=== PATIENT | male | born 1950 | race Caucasian/White ===

== ENCOUNTER 2019-06-13 06:04 | Emergency (ER) | payer OTHER ==
--- NOTE | 2019-06-13 06:21 | ER ---
Nurse's Notes [facility] Name: Taj Perez Age: 69 yrs Sex: Male : 1950 Arrival Date: 06/13/2019 Time: 06:05 Bed 4 Private MD: Diagnosis: Traumatic secondary and recurrent hemorrhage and seroma Presentation: 06/13 06:12 Presenting complaint: Patient states: Total knee replacement on Tuesday, this morning ch woke up with a bloody gauze and is concerned about that. Transition of care: patient was not received from another setting of care. Onset of symptoms was June 13, 2019 at 05:30. Risk Assessment: Do you want to hurt yourself or someone else? Patient reports no desire to harm self or others. Initial Sepsis Screen: Does the patient meet any 2 criteria? No. Patient's initial sepsis screen is negative. Does the patient have a suspected source of infection? No. Patient's initial sepsis screen is negative. Care prior to arrival: None. 06:12 Method Of Arrival: Wheelchair 06:12 Acuity: TRISH 5 ch Historical: - Allergies: 06:15 Risperdal; 06:15 Oxycodone HCl; 06:15 Ibuprofen; 06:15 "two other pysciatric or antibiotics, unknown"; - Home Meds: 06:15 unknown [Active]; 06:16 Plavix 75 mg Oral tab 1 tab once daily [Active]; Aspirin Oral [Active]; - PMHx: 06:15 Kidney stones; psychiatric; spinal fusion; 06:16 Myocardial infarction; - PSHx: 06:15 lower back; R knee replacement, 05/2019; Lithotripsy; Kidney stents; 06:16 cardiac stents; - Immunization history:: Adult Immunizations up to date, Last tetanus immunization: up to date Pneumococcal vaccine is up to date, Flu vaccine is up to date. - Social history:: Smoking status: Patient/guardian denies using tobacco, Patient/guardian denies using alcohol, street drugs. - Ebola Screening: : Patient negative for fever greater than or equal to 101.5 degrees Fahrenheit, and additional compatible Ebola Virus Disease symptoms Patient denies exposure to infectious person Patient denies travel to an Ebola-affected area in the 21 days before illness onset No symptoms or risks identified at this time. Screenin:17 Abuse screen: Denies threats or abuse. Denies injuries from another. Nutritional ch screening: No deficits noted. Tuberculosis screening: No symptoms or risk factors identified. Fall Risk None identified. Assessment: 06:17 General: Appears in no apparent distress. uncomfortable, Behavior is calm, cooperative, jb4 appropriate for age. Pain: Complains of pain in right quadriceps and right knee Pain does not radiate. Pain currently is 8 out of 10 on a pain scale. Neuro: Level of Consciousness is awake, alert, obeys commands, Oriented to person, place, time, situation. Cardiovascular: Patient's skin is warm and dry. Respiratory: Airway is patent Respiratory effort is even, unlabored, Respiratory pattern is regular, symmetrical. GI: No deficits noted. No signs and/or symptoms were reported involving the gastrointestinal system. : No deficits noted. No signs and/or symptoms were reported regarding the genitourinary system. EENT: No deficits noted. No signs and/or symptoms were reported regarding the EENT system. Derm: Skin is intact, Skin is pink, warm \\T\\ dry. Surgical site noted to the right knee. Well approximated, small amount of bleeding noted. Musculoskeletal: Circulation, motion, and sensation intact. Range of motion: intact in all extremities. Vital Signs: 06:16 BP 132 / 78; Pulse 72; Resp 16; Temp 98.6; Pulse Ox 99% on R/A; Pain 8/10; ch ED Course: 06:05 Patient arrived in ED. ds1 06:13 Triage completed. ch 06:13 Severino Bull [facility]. jr8 06:13 Berhane Gonzalez MD is Attending Physician. jr8 06:16 Anderson Romero, ELBERT is Primary Nurse. jb4 06:16 Arm band placed on left wrist. Patient placed in an exam room, on a stretcher, on pulse ch oximetry. 06:17 Patient has correct armband on for positive identification. Bed in low position. Call light in reach. Side rails up X 1. Adult w/ patient. Pulse ox on. NIBP on. 06:38 No provider procedures requiring assistance completed. Patient did not have IV access ch during this emergency room visit. 06:38 No provider procedures requiring assistance completed. Patient did not have IV access jb4 during this emergency room visit. Dressings: ABD pad X 2; right knee. Administered Medications: No medications were administered Outcome: 06:21 Discharge ordered by MD. sahni 06:37 Discharged to home via wheelchair, with family. 06:37 Condition: stable 06:37 Discharge instructions given to patient, family, Instructed on discharge instructions, follow up and referral plans. wound care, Demonstrated understanding of instructions, follow-up care, wound care. 06:38 Patient left the ED. jb4 Signatures: Grace Buenrostro, RN RN Anita Osman1 Severino Bull PA PA jr8 Anderson Romero RN RN jb4
--- NOTE | 2019-06-13 06:22 | EDPHYS ---
Physician Documentation [facility] Name: Taj Perez Age: 69 yrs Sex: Male : 1950 Arrival Date: 06/13/2019 Time: 06:05 Bed 4 Private MD: ED Physician Berhane Gonzalez HPI: 06/13 06:16 This 69 yrs old Male presents to ER via Wheelchair with complaints of Post jr8 Surgical Bleeding. 06:16 Onset: The symptoms/episode began/occurred this morning. Pt had right total knee done jr8 on Tuesday at the [facility], woke up this morning and noticed blood drainage to the dressing this morning, denies acute change in pain, denies fevers. . Historical: - Allergies: 06:15 Risperdal; ch 06:15 Oxycodone HCl; ch 06:15 Ibuprofen; ch 06:15 "two other pysciatric or antibiotics, unknown"; ch - Home Meds: 06:15 unknown [Active]; ch 06:16 Plavix 75 mg Oral tab 1 tab once daily [Active]; Aspirin Oral [Active]; ch - PMHx: 06:15 Kidney stones; psychiatric; spinal fusion; ch 06:16 Myocardial infarction; ch - PSHx: 06:15 lower back; R knee replacement, 05/2019; Lithotripsy; Kidney stents; ch 06:16 cardiac stents; ch - Immunization history:: Adult Immunizations up to date, Last tetanus immunization: up to date Pneumococcal vaccine is up to date, Flu vaccine is up to date. - Social history:: Smoking status: Patient/guardian denies using tobacco, Patient/guardian denies using alcohol, street drugs. - Ebola Screening: : Patient negative for fever greater than or equal to 101.5 degrees Fahrenheit, and additional compatible Ebola Virus Disease symptoms Patient denies exposure to infectious person Patient denies travel to an Ebola-affected area in the 21 days before illness onset No symptoms or risks identified at this time. ROS: 06:16 Constitutional: Negative for fever, chills, and weight loss, Eyes: Negative for injury, jr8 pain, redness, and discharge, ENT: Negative for injury, pain, and discharge, Neck: Negative for injury, pain, and swelling, Cardiovascular: Negative for chest pain, palpitations, and edema, Respiratory: Negative for shortness of breath, cough, wheezing, and pleuritic chest pain, Abdomen/GI: Negative for abdominal pain, nausea, vomiting, diarrhea, and constipation, Back: Negative for injury and pain, Neuro: Negative for headache, weakness, numbness, tingling, and seizure. 06:16 MS/extremity: Positive for pain, of the right knee. Exam: 06:16 Constitutional: This is a well developed, well nourished patient who is awake, alert, jr8 and in no acute distress. Head/Face: Normocephalic, atraumatic. Eyes: Pupils equal round and reactive to light, extra-ocular motions intact. Lids and lashes normal. Conjunctiva and sclera are non-icteric and not injected. Cornea within normal limits. Periorbital areas with no swelling, redness, or edema. ENT: Nares patent. No nasal discharge, no septal abnormalities noted. Tympanic membranes are normal and external auditory canals are clear. Oropharynx with no redness, swelling, or masses, exudates, or evidence of obstruction, uvula midline. Mucous membranes moist. Neck: Trachea midline, no thyromegaly or masses palpated, and no cervical lymphadenopathy. Supple, full range of motion without nuchal rigidity, or vertebral point tenderness. No Meningismus. Chest/axilla: Normal chest wall appearance and motion. Nontender with no deformity. No lesions are appreciated. Cardiovascular: Regular rate and rhythm with a normal S1 and S2. No gallops, murmurs, or rubs. Normal PMI, no JVD. No pulse deficits. Respiratory: Lungs have equal breath sounds bilaterally, clear to auscultation and percussion. No rales, rhonchi or wheezes noted. No increased work of breathing, no retractions or nasal flaring. Abdomen/GI: Soft, non-tender, with normal bowel sounds. No distension or tympany. No guarding or rebound. No evidence of tenderness throughout. Back: No spinal tenderness. No costovertebral tenderness. Full range of motion. Skin: Warm, dry with normal turgor. Normal color with no rashes, no lesions, and no evidence of cellulitis. Post surgical total knee dressing present to right knee with zipline closure device present, wound well approximated, normal amount of bruising and swelling, no warmth, redness, purulent drainage. small amount of dried blound around wound margin and on dressing. Vital Signs: 06:16 BP 132 / 78; Pulse 72; Resp 16; Temp 98.6; Pulse Ox 99% on R/A; Pain 8/10; ch MDM: 06:13 Patient medically screened. jr8 06:18 Data reviewed: vital signs, nurses notes. Data interpreted: Pulse oximetry: is 99 %. jr8 Interpretation: normal. Counseling: I had a detailed discussion with the patient and/or guardian regarding: the historical points, exam findings, and any diagnostic results supporting the discharge/admit diagnosis. ED course: Discussed possible causes for leakage of some blood from knee including seroma, wound does not appear infected, has not dehisced. Pt instructed to continue plan of care per surgeon and follow up as scheduled. No active bleeding noted, return precautions given. Administered Medications: No medications were administered Disposition: 06/13/19 06:21 Discharged to Home. Impression: Traumatic secondary and recurrent hemorrhage and seroma. - Condition is Stable. - Discharge Instructions: Musculoskeletal Pain, Stitches, Martell, or Adhesive Wound Closure. - Medication Reconciliation Form, Thank You Letter form. - Follow up: Private Physician; Reason: Recheck today's complaints, Re-evaluation by your physician. - Problem is new. - Symptoms are resolved. - Notes: [facility] Addendum: 06/14/2019 07:41 Co-signature as Attending Physician, Berhane Gonzalez MD I agree with the assessment and c advis plan of care. Signatures: Grace Buenrostro RN Berhane Araya ch, MD MD cha Roszak, Josh, PA PA jr8 Anderson Romero RN RN jb4 Corrections: (The following items were deleted from the chart) 06/13 06:38 06:21 06/13/2019 06:21 Discharged to Home. Impression: Traumatic secondary and jb4 recurrent hemorrhage and seroma. Condition is Stable. Forms are Medication Reconciliation Form, Thank You Letter, Antibiotic Education, Prescription Opioid Use. Follow up: Private Physician; Reason: Recheck today's complaints, Re-evaluation by your physician. Problem is new. Symptoms are resolved. jr8
[2019-06-13 06:48] VITALS: BP 132/78; TEMP 98.6; O2SAT 99
== END 2019-06-13 06:38 | disposition home or self-care (01) ==
LOC: ER 06:04
DX: T79.2XXA Traumatic secondary and recurrent hemorrhage and seroma, initial encounter (principal); Z79.01 Long term (current) use of anticoagulants; Z79.82 Long term (current) use of aspirin; Z88.5 Allergy status to narcotic agent; Z88.8 Allergy status to other drugs, medicaments and biological substances; Z95.818 Presence of other cardiac implants and grafts; Z96.651 Presence of right artificial knee joint
CPT/HCPCS: 99283

== ENCOUNTER 2019-09-30 16:27 | Emergency (ER) | payer OTHER ==
--- NOTE | 2019-09-30 17:26 | RAD REPORT ---
EXAM DESCRIPTION: CT - [id number] - 09/30/2019 5:07 pm CLINICAL HISTORY: Fall, head and neck injury COMPARISON: None. TECHNIQUE: Axial 5 mm thick images of the head were obtained. Axial 2 mm thick images of the cervic al spine were obtained with sagittal and coronal reconstruction images generated and reviewed. All CT scans are performed using dose optimization technique as appropriate and may include automated exposure control or mA/KV adjustment according to patient size. FINDINGS: No intracranial hemorrhage, mass, edema or acute intracranial finding. No suspicion for acute infarct ion. No significant degree of atrophy or chronic ischemic change. Ventricles are normal. Mastoid air cells are clear. Chronic sinus wall changes and chronic mucosal thickening changes in the right maxil gordon sinus. No globe or orbit abnormality seen. Cervical body height and alignment are normal. Disc space narrowing is present from C4-C7. Prominent facet degenerative change causes bony foraminal encroachment on the left at C3-4. Bilateral bony fora sunday encroachment at C4-5. There is prominent right foraminal stenosis at C5-6 with more mild left f oraminal stenosis. Posterior endplate spurring changes causes central spinal stenosis down to 9 mm. D ense calcification along the posterior longitudinal ligament is present at the C6 level and the C6-7 disc space. Critical spinal stenosis down to 4-5 mm present at the C6-7 disc level. Bilateral foramin al encroachment changes are present. No fracture or acute bony abnormality. Central canal detail is i nherently limited. No paraspinal mass or hematoma. IMPRESSION: No hemorrhage, edema or acute intracranial finding. No cervical spine fracture. Patient has prominent cervical spine degenerative change. There is critical central spinal stenosis a t C6-7 down to 4-5 mm. Additional cervical spine degenerative change detailed in the body of the repo rt.
--- NOTE | 2019-09-30 17:36 | ER ---
Nurse's Notes [facility] Name: Taj Perez Age: 69 yrs Sex: Male : 1950 Arrival Date: 09/30/2019 Time: 16:30 Bed 19 Private MD: Diagnosis: Unspecified injury of head Presentation: 09/30 16:40 Presenting complaint: Patient states: tripped on a curb and fell and hit head, approx iw 10 minutes, denies LOC, on plavix, fell onto hands and knees, mild pain to right knee. Care prior to arrival: None. Mechanism of Injury: Fall from standing position. Trauma event details: Injury occurred in the [facility]. 16:40 Acuity: TRISH 4 iw 16:40 Method Of Arrival: Ambulatory iw 16:44 Transition of care: patient was not received from another setting of care. Onset of bp symptoms was September 30, 2019 at 16:00. Risk Assessment: Do you want to hurt yourself or someone else? Patient reports no desire to harm self or others. Initial Sepsis Screen: Does the patient meet any 2 criteria? No. Patient's initial sepsis screen is negative. Does the patient have a suspected source of infection? No. Patient's initial sepsis screen is negative. Trauma Activation: Not Applicable Physician: ED Physician; Name: ; Notified At: ; Arrived At: Physician: General Surgeon; Name: ; Notified At: ; Arrived At: Physician: Radiology; Name: ; Notified At: ; Arrived At: Physician: Respiratory; Name: ; Notified At: ; Arrived At: Physician: Lab; Name: ; Notified At: ; Arrived At: Historical: - Allergies: 16:44 "two other pysciatric or antibiotics, unknown"; iw 16:44 Ibuprofen; iw 16:44 Oxycodone HCl; iw 16:44 Risperdal; iw - Home Meds: 16:44 aspirin 81 mg Oral TbEC 1 tab once daily [Active]; clopidogrel 75 mg oral tab 1 tab iw once daily [Active]; - PMHx: 16:44 Kidney stones; Myocardial infarction; psychiatric; spinal fusion; iw - PSHx: 16:44 cardiac stents; lower back; R knee replacement, 05/2019; Lithotripsy; Kidney stents; iw - Immunization history:: Adult Immunizations up to date. - Social history:: Smoking status: Patient denies any tobacco usage or history of. - Immunization history: Last tetanus immunization: - up to date. - Ebola Screening: : Patient negative for fever greater than or equal to 101.5 degrees Fahrenheit, and additional compatible Ebola Virus Disease symptoms Patient denies exposure to infectious person Patient denies travel to an Ebola-affected area in the 21 days before illness onset No symptoms or risks identified at this time. Screenin:44 Abuse screen: Denies threats or abuse. Denies injuries from another. Tuberculosis bp screening: No symptoms or risk factors identified. 18:09 Nutritional screening: No deficits noted. Fall Risk None identified. bp Primary Survey: 16:44 NO uncontrolled hemorrhage observed. A: The patient is alert. Airway: patent, No bp supplemental oxygen in use on arrival. Breathing/Chest: Respiratory pattern: regular, Respiratory effort: spontaneous, unlabored. 16:44 Circulation: Skin color: pink, Skin temperature: warm, dry. Disability Alert. bp Exposure/Environment: There is no evidence of uncontrolled external bleeding. Obvious injury(ies) are noted at this time: LEFT FRONTAL BRUISE. 18:08 Reassessment Breathing/Chest Respiratory pattern Regular Respiratory effort Spontaneous bp Unlabored. Assessment: 16:40 General: Appears in no apparent distress. comfortable, Behavior is calm, cooperative. bp Pain: Complains of pain in right knee and left knee. Neuro: Level of Consciousness is awake, alert, obeys commands, Oriented to person, place, time, situation, Appropriate for age. EENT: No deficits noted. Cardiovascular: No deficits noted. Respiratory: No deficits noted. GI: No signs and/or symptoms were reported involving the gastrointestinal system. : No signs and/or symptoms were reported regarding the genitourinary system. Derm: No deficits noted. Musculoskeletal: No deficits noted. 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 NEURO STATUS REMAINS AT BASELINE. bp 17:10 Reassessment: PT RETURNED FROM CT. ALL CURRENT ORDERS COMPLETE, NO CHANGE IN NEURO bp STATUS. 18:08 Reassessment: PT D/C HOME AMBULATORY WITH FAMILY, DX WITH SUPERFICIAL HEAD INJURY. bp Vital Signs: 16:44 BP 122 / 103; Pulse 74; Resp 16; Temp 98.3; Pulse Ox 97% on R/A; Weight 108.86 kg; iw Height 5 ft. 9 in. (175.26 cm); 17:00 BP 125 / 77; Pulse 77; Resp 16; Pulse Ox 98% ; bp 18:07 BP 121 / 70; Pulse 72; Resp 16; Temp 98.3; Pulse Ox 98% ; bp 16:44 Body Mass Index 35.44 (108.86 kg, 175.26 cm) iw [place] Coma Score: 16:44 Eye Response: spontaneous(4). Verbal Response: oriented(5). Motor Response: obeys bp commands(6). Total: 15. Trauma Score (Adult): 16:44 Eye Response: spontaneous(1); Verbal Response: oriented(1); Motor Response: obeys bp commands(2); Systolic BP: > 89 mm Hg(4); Respiratory Rate: 10 to 29 per min(4); Jaspal Score: 15; Trauma Score: 12 ED Course: 16:30 Patient arrived in ED. mr 16:42 Triage completed. iw 16:44 Patient has correct armband on for positive identification. Bed in low position. Call bp light in reach. Side rails up X2. Adult w/ patient. 16:44 Arm band placed on. bp 16:44 Patient maintains SpO2 saturation greater than 95% on room air. Thermoregulation: warm bp blanket given to patient. 16:45 Florencio Wallace PA is PHCP. [facility] 16:45 Brice Glynn MD is Attending Physician. [facility] 16:49 Quique Burch, ELBERT is Primary Nurse. bp 17:07 CT completed. Patient tolerated procedure well. Patient moved back from CT. bq 17:08 CT Head C Spine In Process Unspecified. EDMS 18:06 No provider procedures requiring assistance completed. Patient did not have IV access bp during this emergency room visit. Administered Medications: No medications were administered Intake: 16:44 PO: 0ml; Total: 0ml. bp Output: 16:44 Urine: 0ml; Total: 0ml. bp Outcome: 17:35 Discharge ordered by . jmm 18:05 Discharged to home ambulatory, with family. bp 18:05 Condition: stable 18:05 Patient's length of stay was not longer than 2 hours. 18:06 Discharge instructions given to patient, Instructed on discharge instructions, follow bp up and referral plans. Demonstrated understanding of instructions, follow-up care. 18:09 Patient left the ED. bp Signatures: Dispatcher [employer] EDMS Florencio Wallace PA PA jmm Rivera, Renu mr Scott, Rashida Geronimo, Quique Paetl RN, RN RN bp
--- NOTE | 2019-09-30 17:36 | EDPHYS ---
Physician Documentation [facility] Name: Taj Perez Age: 69 yrs Sex: Male : 1950 Arrival Date: 09/30/2019 Time: 16:30 Bed 19 Private MD: ED Physician Brice Glynn HPI: 09/30 16:57 This 69 yrs old Male presents to ER via Ambulatory with complaints of Fall jmm Injury, Head Injury Without LOC-Adult. 16:57 Details of fall: The patient fell from an upright position, while walking. Onset: The jmm symptoms/episode began/occurred acutely, just prior to arrival. Associated injuries: The patient sustained injury to the head. This is a 69 year old male with a history of MA, that presents to the ED after hitting his head against a curb. Patient states he tripped, falling onto his knees. Denies LOC, vomiting, behavior change. . Historical: - Allergies: 16:44 "two other pysciatric or antibiotics, unknown"; iw 16:44 Ibuprofen; iw 16:44 Oxycodone HCl; iw 16:44 Risperdal; iw - Home Meds: 16:44 aspirin 81 mg Oral TbEC 1 tab once daily [Active]; clopidogrel 75 mg oral tab 1 tab iw once daily [Active]; - PMHx: 16:44 Kidney stones; Myocardial infarction; psychiatric; spinal fusion; iw - PSHx: 16:44 cardiac stents; lower back; R knee replacement, 05/2019; Lithotripsy; Kidney stents; iw - Immunization history:: Adult Immunizations up to date. - Social history:: Smoking status: Patient denies any tobacco usage or history of. - Immunization history: Last tetanus immunization: - up to date. - Ebola Screening: : Patient negative for fever greater than or equal to 101.5 degrees Fahrenheit, and additional compatible Ebola Virus Disease symptoms Patient denies exposure to infectious person Patient denies travel to an Ebola-affected area in the 21 days before illness onset No symptoms or risks identified at this time. ROS: 16:57 Constitutional: Negative for fever, chills, and weight loss, Cardiovascular: Negative jmm for chest pain, palpitations, and edema, Respiratory: Negative for shortness of breath, cough, wheezing, and pleuritic chest pain. 16:57 Neuro: Negative for headache. 16:57 All other systems are negative. Exam: 16:57 Constitutional: This is a well developed, well nourished patient who is awake, alert, jmm and in no acute distress. Eyes: EOMI, no conjunctival erythema appreciated ENT: Moist Mucus Membranes Neck: Trachea midline, Supple 16:57 Chest/axilla: Normal chest wall appearance and motion. Cardiovascular: Regular rate and rhythm. No edema appreciated Respiratory: Normal respirations, no respiratory distress appreciated Abdomen/GI: Non distended, soft Back: Normal ROM Skin: General appearance color normal 16:57 Head/face: Exam is negative for cheung signs, raccoon eyes, mild swelling noted to the frontal scalp. 16:57 Musculoskeletal/extremity: Weight bearing: able to fully bear weight, right and left knee non ttp. FROM appreciated bilaterally, compartments are soft, NVI. 16:57 Skin: Appearance: Color: normal in color, mild erythema noted to the frontal scalp. 16:57 Neuro: Orientation: is normal, Mentation: is normal, Memory: is normal. 16:57 Psych: Behavior/mood is pleasant, cooperative. Vital Signs: 16:44 BP 122 / 103; Pulse 74; Resp 16; Temp 98.3; Pulse Ox 97% on R/A; Weight 108.86 kg; iw Height 5 ft. 9 in. (175.26 cm); 17:00 BP 125 / 77; Pulse 77; Resp 16; Pulse Ox 98% ; bp 18:07 BP 121 / 70; Pulse 72; Resp 16; Temp 98.3; Pulse Ox 98% ; bp 16:44 Body Mass Index 35.44 (108.86 kg, 175.26 cm) iw Jaspal Coma Score: 16:44 Eye Response: spontaneous(4). Verbal Response: oriented(5). Motor Response: obeys bp commands(6). Total: 15. Trauma Score (Adult): 16:44 Eye Response: spontaneous(1); Verbal Response: oriented(1); Motor Response: obeys bp commands(2); Systolic BP: > 89 mm Hg(4); Respiratory Rate: 10 to 29 per min(4); Kaufman Score: 15; Trauma Score: 12 MDM: 16:46 Patient medically screened. lupillo 17:30 Data reviewed: vital signs, nurses notes. Counseling: I had a detailed discussion with lupillo the patient and/or guardian regarding: the historical points, exam findings, and any diagnostic results supporting the discharge/admit diagnosis, radiology results, the need for outpatient follow up, to return to the emergency department if symptoms worsen or persist or if there are any questions or concerns that arise at home. ED course: Patient is alert and non toxic in appearance in the ED. CT imaging negative. No neuro deficits appreciated. Patient given strict return precautions. Patient understood and agrees with the plan of care. Patient understood and agrees with the plan of care. . 09/30 16:51 Order name: CT Head C Spine; Complete Time: 17:30 lupillo Administered Medications: No medications were administered Disposition: 10/01 15:49 Co-signature as Attending Physician, Brice Glynn MD. ma2 Disposition: 09/30/19 17:35 Discharged to Home. Impression: Unspecified injury of head. - Condition is Stable. - Discharge Instructions: Head Injury, Adult. - Medication Reconciliation Form, Thank You Letter, Antibiotic Education, Prescription Opioid Use form. - Follow up: Private Physician; When: 2 - 3 days; Reason: Recheck today's complaints, Continuance of care, Re-evaluation by your physician. Signatures: Dispatcher [employer] EDMS Florencio Wallace PA PA jmm Williams, Irene, RN RN iw Peltier, Brian, RN RN bp Alzahri, Mohammad, MD MD ok2 Corrections: (The following items were deleted from the chart) 09/30 18:09 17:35 09/30/2019 17:35 Discharged to Home. Impression: Unspecified injury of head. bp Condition is Stable. Forms are Medication Reconciliation Form, Thank You Letter, Antibiotic Education, Prescription Opioid Use. Follow up: Private Physician; When: 2 - 3 days; Reason: Recheck today's complaints, Continuance of care, Re-evaluation by your physician. lupillo
[2019-09-30 19:20] VITALS: TEMP 98.3
[2019-09-30 19:22] VITALS: O2SAT 98
[2019-09-30 19:24] VITALS: BP 121/70
== END 2019-09-30 18:09 | disposition home or self-care (01) ==
LOC: ER 16:27
DX: S09.90XA Unspecified injury of head, initial encounter (principal); W10.1XXA Fall (on)(from) sidewalk curb, initial encounter; Y93.9 Activity, unspecified; Y92.9 Unspecified place or not applicable; Z88.6 Allergy status to analgesic agent; Z88.8 Allergy status to other drugs, medicaments and biological substances; I25.2 Old myocardial infarction
CPT/HCPCS: 70450; 72125; 99284

== ENCOUNTER 2021-05-19 16:16 | Emergency (ER) | payer OTHER ==
--- OUTSIDE RECORDS SUMMARY | 2021-05-19 16:18 | XMS REPORT | Continuity of Care Document ---
:1950 [address] [facility] t Address [address] [place] [address] Dr. Lemus [address] [place] [id number] Care Team Providers Name Role Phone Unavailable Unavailable Unavailable Problems This patient has no known problems. Allergies, Adverse Reactions, Alerts This patient has no known allergies or adverse reactions. Medications This patient has no known medications. Procedures This patient has no known procedures. Results This patient has no known results.
[2021-05-19 18:45] LABS: Absolute Lymphocytes (CBC) 1.9 K/uL (0.7-4.9); Basophils % 0.7 % (0-1.3); Hematocrit 41.5 % (39.6-49.0); Lymphocytes % 22.9 % (15.3-44.8); MPV 6.5 fL (7.6-11.3); RBC Red Blood Cell Count 4.55 M/uL (4.33-5.43)
[2021-05-19 18:46] LABS: Protime INR 1.02
[2021-05-19 19:10] LABS: ALT/SGPT 23 U/L (12-78); AST/SGOT 16 U/L (15-37); Albumin 3.8 g/dL (3.4-5.0); Alkaline Phosphatase 138 U/L (45-117); BUN Blood Urea Nitrogen 29 mg/dL (7-18); Bicarbonate 29 mmol/L (21-32); Bilirubin Direct < 0.1 mg/dL (0-0.2); Bilirubin Total 0.4 mg/dL (0.2-1.0); Glucose Level 86 mg/dL (74-106); Magnesium 2.2 mg/dL (1.8-2.4); NT PRO-BNP 86 pg/mL (<125); Potassium 4.7 mmol/L (3.5-5.1); Protein, Total 7.8 g/dL (6.4-8.2); Sodium Level 140 mmol/L (136-145); Troponin (Emerg Dept Use Only) < 0.02 ng/mL (0.0-0.045)
--- NOTE | 2021-05-19 19:32 | RAD REPORT ---
EXAM DESCRIPTION: RAD - Chest Single View - 05/19/2021 6:55 pm CLINICAL HISTORY: CHEST PAIN COMPARISON: None TECHNIQUE: AP portable chest image was obtained 05/19/2021 6:55 pm . FINDINGS: Lungs are clear. Heart and vasculature are normal. No measurable pleural effusion and no p neumothorax. No acute bony abnormality seen. No acute aortic findings suspected. IMPRESSION: No acute cardiopulmonary process.
[2021-05-19] MEDS ORDERED: ASPIRIN 325 MG TAB ONE (19:44)
[2021-05-19] MEDS ORDERED: NA CHLORIDE 0.9% 1,000 ML ONE (19:44)
--- NOTE | 2021-05-19 21:02 | ER ---
Nurse's Notes [facility] Name: Taj Perez Age: 71 yrs Sex: Male : 1950 Arrival Date: 05/19/2021 Time: 16:18 Bed 3 Private MD: Diagnosis: Chest pain, unspecified Presentation: 05/19 16:35 Chief complaint: Patient states: Had to take a nitro a day for the past three days for ll1 int. [facility] get [facility]. No pain now. Coronavirus screen: Vaccine status: Patient reports receiving the 2nd dose of the covid vaccine. Client denies travel out of the [place] in the last 14 days. At this time, the client does not indicate any symptoms associated with coronavirus-19. Ebola Screen: Patient denies travel to an Ebola-affected area in the 21 days before illness onset. Initial Sepsis Screen: Does the patient meet any 2 criteria? No. Patient's initial sepsis screen is negative. Does the patient have a suspected source of infection? No. Patient's initial sepsis screen is negative. Risk Assessment: Do you want to hurt yourself or someone else? Patient reports no desire to harm self or others. Onset of symptoms was May 17, 2021. 16:35 Method Of Arrival: Ambulatory 1 16:35 Acuity: TRISH 3 ll1 Triage Assessment: 19:48 General: Appears in no apparent distress. obese. Pain: Denies pain. wr 19:55 EENT: No deficits noted. Neuro: No deficits noted. Cardiovascular: Chest pain began 8 wr Hour today ,but no pain now. Hx of CAD,Chronic Back pain,Glucoma,COPD, Chronic Back pain. Respiratory: Onset: The symptoms/episode began/occurred History COPD no S/S now.. Musculoskeletal: Reports pain in back Hx: Chronic Pain. Historical: - Allergies: 16:31 "two other pysciatric or antibiotics, unknown"; ll1 16:31 Ibuprofen; ll1 16:31 Oxycodone HCl; ll1 16:31 Risperdal; ll1 - PMHx: 16:31 Kidney stones; Myocardial infarction; psychiatric; spinal fusion; ll1 - PSHx: 16:34 heart stent/cath; ll1 - Immunization history:: Client reports receiving the 2nd dose of the Covid vaccine, Flu vaccine is up to date. - Social history:: Smoking status: Patient/guardian denies using tobacco, the patient reports quitting approximately 16 years ago. Screenin:19 Abuse screen: Denies threats or abuse. Denies injuries from another. Nutritional ss screening: No deficits noted. Tuberculosis screening: Never had TB. Assessment: 18:25 General: Appears in no apparent distress. comfortable, well groomed, well developed, sv Behavior is calm, cooperative, appropriate for age. Pain: Denies pain. Neuro: Level of Consciousness is awake, alert, obeys commands, Oriented to person, place, time, situation, Moves all extremities. Full function Gait is steady. Cardiovascular: Patient's skin is warm and dry. Rhythm is sinus rhythm. Cardiovascular: Denies chest pain. Respiratory: Airway is patent Respiratory effort is even, unlabored, Respiratory pattern is regular, symmetrical. Derm: Skin is pink, warm \\T\\ dry. Musculoskeletal: Range of motion: intact in all extremities. Vital Signs: 16:35 BP 141 / 82; Pulse 81; Resp 18; Temp 98.1; Pulse Ox 97% on R/A; Weight 68.95 kg; Height ll1 5 ft. 9 in. (175.26 cm); Pain 0/10; 18:33 BP 144 / 84; Pulse 66; Resp 17; Pulse Ox 96% ; sv 20:01 BP 140 / 90; Pulse 74; Resp 17; Temp 98.4; Pulse Ox 96% ; wr 16:35 Body Mass Index 22.45 (68.95 kg, 175.26 cm) ll1 ED Course: 16:18 Patient arrived in ED. am2 16:31 Arm band placed on. ll1 16:36 Triage completed. ll1 18:19 Patient has correct armband on for positive identification. Bed in low position. ss 18:19 Patient maintains SpO2 saturation greater than 95% on room air. ss 18:25 Inserted saline lock: 20 gauge in right antecubital area, using aseptic technique. sv ,using aseptic technique. done by [facility] Blood collected. 18:32 Awaiting lab results, Awaiting for x-ray, Awaiting ED provider evaluation. sv 18:55 Berhane Gonzalez MD is Attending Physician. wild 18:55 XRAY Chest (1 view) In Process Unspecified. EDMS 19:19 [facility] Bull [facility] jr8 20:27 Troponin (Emerg Dept Use Only) Sent. wr Administered Medications: 19:31 Drug: Aspirin Chewable Tablet 324 mg Route: PO; bb 19:32 Not Given (Hold per MD Order.): NS 0.9% 1000 ml IV at 125 ml/hr continuous bb Outcome: 21:01 Discharge ordered by . jr8 21:23 Patient left the ED. wr Signatures: Dispatcher [employer] Alisha Simons, RN RN Berhane Chandler MD MD cha Ballard, Brenda, RN RN Sugey Meneses RN RN ss Roszak, Josh, PA PA jr8 Namita Garzon Lynsay, RN RN ll1 Analia Horan
--- NOTE | 2021-05-19 21:02 | EDPHYS ---
Physician Documentation [facility] Name: Taj Perez Age: 71 yrs Sex: Male : 1950 Arrival Date: 05/19/2021 Time: 16:18 Bed 3 Private MD: ED Physician Berhane Gonzalez HPI: 05/19 20:07 This 71 yrs old Male presents to ER via Ambulatory with complaints of Chest jr8 Pain. 20:07 The patient or guardian reports chest pain that is located primarily in the substernal jr8 area. Onset: gradually, 3 day(s) ago. The pain does not radiate. Associated signs and symptoms: The patient has no apparent associated signs or symptoms. The chest pain is described as a pressure. Duration: The patient or guardian reports multiple episodes. Modifying factors: The symptoms are alleviated by NTG, X1. the symptoms are aggravated by nothing. Severity of pain: At its worst the pain was moderate in the emergency department the pain has resolved. The patient has experienced a previous episode. The patient has not recently seen a physician. Patient stated that he has a history of heart stent in the past. Has been prescribed nitroglycerin for chest pain which she has had in the past but not recently. Stated that 3 days ago he had a single episode of chest pain that was completely relieved with nitroglycerin. Stated that the following day he had another episode and that today he had an episode all being relieved with nitroglycerin. Currently patient is without any pain at this time. [facility] for further evaluation.. Historical: - Allergies: 16:31 "two other pysciatric or antibiotics, unknown"; ll1 16:31 Ibuprofen; ll1 16:31 Oxycodone HCl; ll1 16:31 Risperdal; ll1 - PMHx: 16:31 Kidney stones; Myocardial infarction; psychiatric; spinal fusion; ll1 - PSHx: 16:34 heart stent/cath; ll1 - Immunization history:: Client reports receiving the 2nd dose of the Covid vaccine, Flu vaccine is up to date. - Social history:: Smoking status: Patient/guardian denies using tobacco, the patient reports quitting approximately 16 years ago. ROS: 20:07 Eyes: Negative for injury, pain, redness, and discharge, ENT: Negative for injury, jr8 pain, and discharge, Neck: Negative for injury, pain, and swelling, Respiratory: Negative for shortness of breath, cough, wheezing, and pleuritic chest pain, Abdomen/GI: Negative for abdominal pain, nausea, vomiting, diarrhea, and constipation, Back: Negative for injury and pain, MS/Extremity: Negative for injury and deformity, Skin: Negative for injury, rash, and discoloration, Neuro: Negative for headache, weakness, numbness, tingling, and seizure. 20:07 Cardiovascular: Positive for chest pain, Negative for edema, orthopnea, palpitations, paroxysmal nocturnal dyspnea. Exam: 20:07 Constitutional: This is a well developed, well nourished patient who is awake, alert, jr8 and in no acute distress. Chest/axilla: Normal chest wall appearance and motion. Nontender with no deformity. No lesions are appreciated. Cardiovascular: Regular rate and rhythm with a normal S1 and S2. No gallops, murmurs, or rubs. Normal PMI, no JVD. No pulse deficits. Respiratory: Lungs have equal breath sounds bilaterally, clear to auscultation and percussion. No rales, rhonchi or wheezes noted. No increased work of breathing, no retractions or nasal flaring. Abdomen/GI: Soft, non-tender, with normal bowel sounds. No distension or tympany. No guarding or rebound. No evidence of tenderness throughout. Back: No spinal tenderness. No costovertebral tenderness. Full range of motion. Skin: Warm, dry with normal turgor. Normal color with no rashes, no lesions, and no evidence of cellulitis. MS/ Extremity: Pulses equal, no cyanosis. Neurovascular intact. Full, normal range of motion. Neuro: Awake and alert, GCS 15, oriented to person, place, time, and situation. Cranial nerves II-XII grossly intact. Motor strength 5/5 in all extremities. Sensory grossly intact. Vital Signs: 16:35 BP 141 / 82; Pulse 81; Resp 18; Temp 98.1; Pulse Ox 97% on R/A; Weight 68.95 kg; Height ll1 5 ft. 9 in. (175.26 cm); Pain 0/10; 18:33 BP 144 / 84; Pulse 66; Resp 17; Pulse Ox 96% ; sv 20:01 BP 140 / 90; Pulse 74; Resp 17; Temp 98.4; Pulse Ox 96% ; wr 16:35 Body Mass Index 22.45 (68.95 kg, 175.26 cm) ll1 MDM: 18:55 Patient medically screened. wild 20:07 The patient was given aspirin in the Emergency Department. Data reviewed: vital signs, jr8 nurses notes, lab test result(s), EKG, radiologic studies, plain films. Data interpreted: Pulse oximetry: on room air is 96 %. Interpretation: normal. Counseling: I had a detailed discussion with the patient and/or guardian regarding: the historical points, exam findings, and any diagnostic results supporting the discharge/admit diagnosis, lab results, radiology results, the need for outpatient follow up, a administrative fellow, to return to the emergency department if symptoms worsen or persist or if there are any questions or concerns that arise at home. 21:00 ED course: Patient remains hemodynamically stable and without chest pain at this time. jr8 EKG without acute findings. Patient had 2 troponins drawn here both negative. Recommended observation but patient wants to go home secondary to some family constraints. Will follow up with his [facility] administrative fellow as soon as possible. Knows to come back if he were to become worse.. 05/19 18:19 Order name: Basic Metabolic Panel; Complete Time: 19:19 ss 05/19 18:19 Order name: CBC with Diff; Complete Time: 19:19 ss 05/19 18:19 Order name: LFT's; Complete Time: 19:19 ss 05/19 18:19 Order name: Magnesium; Complete Time: 19:19 ss 05/19 18:19 Order name: NT PRO-BNP; Complete Time: 19:19 ss 05/19 18:19 Order name: PT-INR; Complete Time: 19:19 ss 05/19 18:19 Order name: Troponin (emerg Dept Use Only); Complete Time: 19:19 ss 05/19 18:19 Order name: XRAY Chest (1 view); Complete Time: 19:44 ss 05/19 20:09 Order name: Troponin (emerg Dept Use Only) [facility] 05/19 20:10 Order name: Troponin (Emerg Dept Use Only); Complete Time: 21:00 EDMS 05/19 20:28 Order name: SARS-COV-2 RT PCR; Complete Time: 21:00 EDMS 05/19 18:19 Order name: EKG; Complete Time: 18:19 ss 05/19 18:19 Order name: Cardiac monitoring; Complete Time: 18:31 ss 05/19 18:19 Order name: EKG - Nurse/Tech; Complete Time: 18:19 ss 05/19 18:19 Order name: IV Saline Lock; Complete Time: 18:31 ss 05/19 18:19 Order name: Labs collected and sent; Complete Time: 18:31 ss 05/19 18:19 Order name: O2 Per Protocol; Complete Time: 18:31 ss 05/19 18:19 Order name: O2 Sat Monitoring; Complete Time: 18:31 ss Administered Medications: 19:31 Drug: Aspirin Chewable Tablet 324 mg Route: PO; bb 19:32 Not Given (Hold per MD Order.): NS 0.9% 1000 ml IV at 125 ml/hr continuous bb Disposition: 05/20 08:12 Co-signature as Attending Physician, Berhane Gonzalez MD I agree with the assessment and wild plan of care. Disposition Summary: 05/19/21 21:01 Discharge Ordered Location: Home [facility] Problem: new jr8 Symptoms: are resolved jr8 Condition: Stable jr8 Diagnosis - Chest pain, unspecified jr8 Followup: jr8 - With: Private Physician - When: 1 - 2 days - Reason: Recheck today's complaints, Continuance of care, Re-evaluation by your physician Discharge Instructions: - Angina jr8 - Nonspecific Chest Pain, Adult jr8 - Discharge Summary Sheet wr Forms: - Medication Reconciliation Form jr8 - Thank You Letter jr8 - Antibiotic Education jr8 - SBAR form wr - Prescription Opioid Use jr8 Signatures: Dispatcher [employer] Berhane Castillo MD MD cha Ballard, Brenda, RN RN Sugey Meneses RN RN ss Severino Bull PA PA jr8 Nico Zimmerman RN RN ll1 Corrections: (The following items were deleted from the chart) 05/19 19:12 18:57 CORONAVIRUS+ ordered. [facility] EDOK
[2021-05-19 21:44] VITALS: O2SAT 96
[2021-05-19 21:45] VITALS: BP 140/90; TEMP 98.4
--- NOTE | 2021-05-20 11:28 | EKG ---
Test Date: 2021-05-19 Test Time: 16:40:21 Automation Consultant: ROSA MEASUREMENT RESULTS: Intervals: Rate: 71 ND: 172 QRSD: 86 QT: 362 QTc: 393 [place]: P: 59 ND: 172 QRS: 61 T: 40 INTERPRETIVE STATEMENTS: Normal sinus rhythm Normal ECG No previous ECG available for comparison Electronically Signed On 05-20-21 11:26:33 CDT by Arnaldo De Jesus
== END 2021-05-19 21:23 | disposition home or self-care (01) ==
LOC: ER 16:16
DX: R07.9 Chest pain, unspecified (principal); I25.2 Old myocardial infarction; Z20.822 Contact with and (suspected) exposure to COVID-19; Z95.818 Presence of other cardiac implants and grafts; Z88.1 Allergy status to other antibiotic agents; Z88.5 Allergy status to narcotic agent; Z88.6 Allergy status to analgesic agent; Z88.8 Allergy status to other drugs, medicaments and biological substances
CPT/HCPCS: 93005; 85025; 80048; 36415; 83735; 85610; 80076; 84484 ×2; 83880; 71045; 99285; U0003; J7030

== ENCOUNTER 2021-09-18 10:45 | Emergency (ER) | payer OTHER ==
--- OUTSIDE RECORDS SUMMARY | 2021-09-18 10:47 | XMS REPORT | Continuity of Care Document ---
:1950 Author Organization [facility] t Address [address] [place] [address] Care Team Providers Name Role Phone Ramon VERNON Attending Clinician Unavailable Lavell WANG Attending Clinician Unavailable Harriet-Mbayo_A_AH Attending Clinician Unavailable Harriet-Mbayo_A_AH Admitting Clinician Unavailable Payers Payer Name Policy Type Policy Number Effective Date Expiration Date S ourmoe [employer] MEDICARE ADV [id number] 2020 00:00:00 MEDICARE PART A [id number] 2020 \T\ B 00:00:00 [facility] [id number] 2019 [facility] 00:00:00 (MEDICARE REPLACEMENT/ADVANT AGE - HMO) Problems This patient has no known problems. Allergies, Adverse Reactions, Alerts Allergy Allergy Status Severity Reaction(s) Onset Inactive Treating Comm ents Source Name Type Date Date Clinician GABAPENT DRUG Active Unknown-Cmnt Un davina IN [facility] 04-20 ity of 00:00: [address] IBUPROFE DRUG Active Unknown-Cmnt Un davina N [facility] 04-20 ity of 00:00: [address] RISPERID DRUG Active EP Effects Univ ers ONE [facility] 04-20 ity of 00:00: [address] Medications This patient has no known medications. Procedures This patient has no known procedures. Encounters Start End Encounter Admission Attending Care Care Encounter Source Date/Time Date/Time Type Type Clinicians Facility Department ID 2020-06-25 2020-06-25 Outpatient [facility] [id number] Univers 00:00:00 00:00:00 JACKIE [id number] ity of [facility] 2020-06-25 2020-06-25 Outpatient [facility] [id number] Univers 00:00:00 00:00:00 JACKIE itdoni [facility] 2020-06-20 2020-06-20 Outpatient R SAULO [facility] [id number] Univers 09:00[facility]00 09[facility]00[facility]20 2020-06-20 Outpatient R SAULO [facility] [id number] Univers 09:00:00 09:00:00 JACKIE carrasco [facility] 2020-05-02 2020-05-02 Outpatient FELIPE [facility] [id number] Univers 09:10:00 09:10:00 [facility] [id number] [facility] 2020-05-02 2020-05-02 Outpatient R FELIPE [facility] [id number] Univers 08:30:00 08:30:00 ELLIOTT danilo [facility] 2020-05-01 2020-05-01 [facility] [id number] Univers 10:45:00 10:45:00 [facility] 2019-11-22 2019-11-22 Outpatient Harriet-Mbayo VFP VFP [phone] [facility] 10:39:00 10:39:00 _A_AH [id number] Family Practic e 2019-11-22 2019-11-22 Outpatient Harriet-Mbayo VFP VFP [phone] [facility] 10:39:00 10:39:00 _A_AH [id number] Family Practic e Results This patient has no known results.
--- NOTE | 2021-09-18 13:52 | RAD REPORT ---
EXAM DESCRIPTION: RAD - Knee Left 3 View - 09/18/2021 1:45 pm CLINICAL HISTORY: PAIN COMPARISON: No comparisons FINDINGS: No acute fracture. No malalignment. Small knee effusion. Tricompartmental degenerative wild nges with moderate narrowing/spurring in the medial compartment, mild in the lateral compartment, and mild in the patellofemoral compartment. IMPRESSION: No acute osseous abnormality involving the left knee.
[2021-09-18] MEDS ORDERED: LIDOCAINE 1% MPF 5 ML VIAL ONE (15:13)
[2021-09-18] MEDS ORDERED: LIDOCAINE 1% 20 ML MDV ONE (15:15)
[2021-09-18 17:25] LABS: Appearance TURBID (CLEAR); Body Fluid Source SYNOVIAL; Color of fluid Red (COLORLESS)
[2021-09-18 17:26] LABS: Body Fluid WBC 659 /mm^3
--- NOTE | 2021-09-18 17:34 | ER ---
Nurse's Notes [facility] Name: Taj Perez Age: 71 yrs Sex: Male : 1950 Arrival Date: 09/18/2021 Time: 10:49 Bed 11 Private MD: Diagnosis: Osteoarthritis of knee, unspecified;Effusion, left knee Presentation: 09/18 12:09 Chief complaint: Patient states: my LEFT knee is swelling and hurting for 3 days now. i tw2 cannot walk on it. Coronavirus screen: At this time, the client does not indicate any symptoms associated with coronavirus-19. Ebola Screen: Patient denies travel to an Ebola-affected area in the 21 days before illness onset. Risk Assessment: Do you want to hurt yourself or someone else? Patient reports no desire to harm self or others. Onset of symptoms was September 18, 2021. 12:09 Method Of Arrival: Wheelchair tw2 12:12 Initial Sepsis Screen: Does the patient meet any 2 criteria? No. Patient's initial tw2 sepsis screen is negative. Does the patient have a suspected source of infection? No. Patient's initial sepsis screen is negative. 12:12 Acuity: TRISH 4 tw2 Triage Assessment: 12:11 General: Appears in no apparent distress. uncomfortable, obese, Behavior is calm, tw2 cooperative, appropriate for age. Pain: Complains of pain in LEFT knee. Historical: - Allergies: 12:10 Ibuprofen; tw2 12:10 Oxycodone HCl; tw2 12:10 Risperdal; tw2 - Home Meds: 12:10 Plavix 75 mg Oral tab 1 tab once daily [Active]; [facility] [[facility]]; tw2 - PMHx: 12:10 Kidney stones; Myocardial infarction; psychiatric; spinal fusion; tw2 - PSHx: 12:10 heart stent/cath; tw2 - Immunization history:: Client reports receiving the 2nd dose of the Covid vaccine. - Social history:: Smoking status: Patient denies any tobacco usage or history of. Screenin:37 Abuse screen: Denies threats or abuse. Denies injuries from another. Nutritional jh5 screening: No deficits noted. Tuberculosis screening: No symptoms or risk factors identified. Fall Risk Secondary diagnosis (15 points) impaired mobility. Vital Signs: 12:12 BP 167 / 76; Pulse 91; Resp 18; Temp 98.8(TE); Pulse Ox 97% on R/A; Weight 113.4 kg tw2 (R); Height 5 ft. 9 in. (175.26 cm); Pain 9/10; 12:12 Body Mass Index 36.92 (113.40 kg, 175.26 cm) tw2 ED Course: 10:49 Patient arrived in ED. am2 12:11 Arm band placed on. tw2 12:12 Triage completed. tw2 13:44 Knee Left 3 View XRAY In Process Unspecified. EDMS 14:43 Carolina Gutierrez, RN is Primary Nurse. [facility] 14:45 Severino Bull PA is PHCP. [facility] 14:45 Jamil Agarwal MD is Attending Physician. jr8 17:37 No provider procedures requiring assistance completed. Patient did not have IV access [facility] during this emergency room visit. 17:38 Patient has correct armband on for positive identification. Call light in reach. Side 5 rails up X 1. Adult w/ patient. Administered Medications: 15:14 Drug: Lidocaine (1 %) 5 mg {Note: given per MD.} Route: Infiltration; [facility] Outcome: 17:33 Discharge ordered by MD. jr8 17:37 Admitted to [facility] 17:37 Condition: good 17:37 Discharge instructions given to patient, Instructed on discharge instructions, follow up and referral plans. medication usage, safety practices, Demonstrated understanding of instructions, follow-up care, medications, Prescriptions given X 1. 17:43 Patient left the ED. [facility] Signatures: Dispatcher [employer] EDNM Severino Bull PA PA jr8 Taina Parks, RN RN tw2 Namita Garzon am2 Carolina Gutierrez, RN RN 5
--- NOTE | 2021-09-18 17:34 | EDPHYS ---
Physician Documentation [facility] Name: Taj Perez Age: 71 yrs Sex: Male : 1950 Arrival Date: 09/18/2021 Time: 10:49 Bed 11 Private MD: ED Physician Jamil Agarwal HPI: 09/18 16:07 This 71 yrs old Male presents to ER via Wheelchair with complaints of left knee jr8 swelling. 16:07 Onset: The symptoms/episode began/occurred gradually, 3 day(s) ago. Associated signs jr8 and symptoms: Pertinent positives: swelling, warmth. Severity of symptoms: At their worst the symptoms were mild, in the emergency department the symptoms are unchanged. The patient has not experienced similar symptoms in the past. The patient has not recently seen a physician. Historical: - Allergies: 12:10 Ibuprofen; tw2 12:10 Oxycodone HCl; tw2 12:10 Risperdal; tw2 - Home Meds: 12:10 Plavix 75 mg Oral tab 1 tab once daily [Active]; [facility] [[facility]]; tw2 - PMHx: 12:10 Kidney stones; Myocardial infarction; psychiatric; spinal fusion; tw2 - PSHx: 12:10 heart stent/cath; tw2 - Immunization history:: Client reports receiving the 2nd dose of the Covid vaccine. - Social history:: Smoking status: Patient denies any tobacco usage or history of. ROS: 16:07 Eyes: Negative for injury, pain, redness, and discharge, ENT: Negative for injury, jr8 pain, and discharge, Neck: Negative for injury, pain, and swelling, Cardiovascular: Negative for chest pain, palpitations, and edema, Respiratory: Negative for shortness of breath, cough, wheezing, and pleuritic chest pain, Abdomen/GI: Negative for abdominal pain, nausea, vomiting, diarrhea, and constipation, Back: Negative for injury and pain, Skin: Negative for injury, rash, and discoloration, Neuro: Negative for headache, weakness, numbness, tingling, and seizure. 16:07 MS/extremity: Positive for erythema, pain, swelling, tenderness, warmth, of the left knee. Exam: 16:07 Constitutional: This is a well developed, well nourished patient who is awake, alert, jr8 and in no acute distress. Cardiovascular: Regular rate and rhythm with a normal S1 and S2. No gallops, murmurs, or rubs. Normal PMI, no JVD. No pulse deficits. Respiratory: Lungs have equal breath sounds bilaterally, clear to auscultation and percussion. No rales, rhonchi or wheezes noted. No increased work of breathing, no retractions or nasal flaring. Skin: Warm, dry with normal turgor. Normal color with no rashes, no lesions, and no evidence of cellulitis. Neuro: Awake and alert, GCS 15, oriented to person, place, time, and situation. Cranial nerves II-XII grossly intact. Motor strength 5/5 in all extremities. Sensory grossly intact. 16:07 Musculoskeletal/extremity: Extremities: grossly normal except: noted in the left knee: erythema, pain, swelling, tenderness, ROM: intact in all extremities, Circulation is intact in all extremities. Sensation intact. Vital Signs: 12:12 BP 167 / 76; Pulse 91; Resp 18; Temp 98.8(TE); Pulse Ox 97% on R/A; Weight 113.4 kg tw2 (R); Height 5 ft. 9 in. (175.26 cm); Pain 9/10; 12:12 Body Mass Index 36.92 (113.40 kg, 175.26 cm) tw2 Procedures: 16:07 Joint Treatment: Aspiration of left knee using 18 gauge needle, Lidocaine, Removed 7 jr8 ml's of yellow fluid, Specimen sent to lab. Dressed with 4x4s, Patient tolerated well. Joint cleaned in sterile fashion with iodine . MDM: 14:45 Patient medically screened. [facility] 16:07 Data reviewed: vital signs, nurses notes, lab test result(s). Data interpreted: Pulse jr8 oximetry: on room air is 97 %. Interpretation: normal. Counseling: I had a detailed discussion with the patient and/or guardian regarding: the historical points, exam findings, and any diagnostic results supporting the discharge/admit diagnosis, lab results. 09/18 15:27 Order name: Fluid Cell Count,Body; Complete Time: 17:26 jr8 09/18 15:27 Order name: Fluid Crystals; Complete Time: 16:44 8 09/18 12:48 Order name: Knee Left 3 View XRAY; Complete Time: 14:56 ss 09/18 15:30 Order name: Body Fluid Culture jr8 Administered Medications: 15:14 Drug: Lidocaine (1 %) 5 mg {Note: given per MD.} Route: Infiltration; jh5 Disposition Summary: 09/18/21 17:33 Discharge Ordered Location: Home jr8 Problem: new jr8 Symptoms: have improved jr8 Condition: Stable jr8 Diagnosis - Osteoarthritis of knee, unspecified jr8 - Effusion, left knee jr8 Followup: jr8 - With: Private Physician - When: 5 - 6 days - Reason: Recheck today's complaints, Continuance of care, Re-evaluation by your physician Discharge Instructions: - Discharge Summary Sheet jr8 - Arthritis jr8 - Knee Effusion jr8 Forms: - Medication Reconciliation Form jr8 - Thank You Letter jr8 - Antibiotic Education jr8 - Prescription Opioid Use jr8 Prescriptions: - Medrol (Rene) 4 mg Oral Tablets, Dose Pack - take 1 tablet by ORAL route as directed - follow package instructions; 1 jr8 packet; Refills: 0, Product Selection Permitted Addendum: 09/20/2021 16:22 Co-signature as Attending Physician, Jamil Agarwal MD I agree with the assessment and s p3 plan of care. Signatures: Dispatcher [employer] EDMS Severino Bull PA PA jr8 Taina Parks RN RN tw2 Jamil Agarwal MD MD sp3 Carolina Gutierrez RN RN jh5 Corrections: (The following items were deleted from the chart) 09/18 15:28 15:28 FLUID SOURCE+H.LAB.BRZ ordered. EDOR EDMS
[2021-09-18 18:04] VITALS: BP 167/76; TEMP 98.8; O2SAT 97
== END 2021-09-18 17:43 | disposition home or self-care (01) ==
LOC: ER 10:45
DX: M17.12 Unilateral primary osteoarthritis, left knee (principal); M25.462 Effusion, left knee; Z88.6 Allergy status to analgesic agent
CPT/HCPCS: 36415; 87070; 89050; 89060; 99285

== ENCOUNTER 2021-09-25 15:44 | Inpatient (IN) | payer OTHER ==
--- OUTSIDE RECORDS SUMMARY | 2021-09-25 15:46 | XMS REPORT | Continuity of Care Document ---
:1950 Author Organization [facility] t Address [address] [place] [address] Care Team Providers Name Role Phone Ramon VERNON Attending Clinician Unavailable Lavell WANG Attending Clinician Unavailable Harriet-Mbayo_A_AH Attending Clinician Unavailable Harriet-Mbayo_A_AH Admitting Clinician Unavailable Payers Payer Name Policy Type Policy Number Effective Date Expiration Date S ourmoe [employer] MEDICARE ADV [id number] 2020 00:00:00 MEDICARE PART A [id number] 2020 \T\ B 00:00:00 [facility] [id number] 2019 [facility] 00:[facility]:00 (MEDICARE REPLACEMENT/ADVANT AGE - HMO) Problems This patient has no known problems. Allergies, Adverse Reactions, Alerts Allergy Allergy Status Severity Reaction(s) Onset Inactive Treating Comm ents Source Name Type Date Date Clinician GABAPENT DRUG Active Unknown-Cmnt Un davina IN [facility] 04-20 ity of 00:00: [address] IBUPROFE DRUG Active Unknown-Cmnt Un davina N [facility] 04-20 ity of 00:00: [address] RISPERID DRUG Active EP Effects Univ ers ONE [facility] 04-20 ity of 00:00: [address] Medications This patient has no known medications. Procedures This patient has no known procedures. Encounters Start End Encounter Admission Attending Care Care Encounter Source Date/Time Date/Time Type Type Clinicians Facility Department ID 2020-06-25 2020-06-25 Outpatient [facility] [id number] Univers 00:00:00 00:00:00 JACKIE [id number] ity of [facility] 2020-06-25 2020-06-25 Outpatient [facility] [id number] Univers 00:00:00 00:00:00 JACKIE itdoni [facility] 2020-06-20 2020-06-20 Outpatient R SAULO [facility] [id number] Univers 09:00[facility]00 [facility] 2020-06-20 Outpatient R SAULO [facility] [id number] Univers 09:00:00 09:00:00 JACKIE carrasco [facility] 2020-05-02 2020-05-02 Outpatient FELIPE [facility] [id number] Univers 09:10:00 09:10:00 [facility] [id number] [facility] 2020-05-02 Outpatient R FELIPE [facility] [id number] Univers 08:30:00 08:30:00 ELLIOTT danilo [facility] 2020-05-01 2020-05-01 [id number] Univers 10:45[facility] 10:45:[facility] 2019-11-22 2019-11-22 Outpatient Harriet-Mbayo VFP VFP [phone] [facility] 10:39:00 10:39:00 _A_AH [id number] Practic e 2019-11-22 2019-11-22 Outpatient Harriet-Mbayo VFP VFP [phone] [facility] 10:39:00 10:39:00 _A_AH [id number] Family Practic e Results This patient has no known results.
[2021-09-25 16:29] LABS: Absolute Lymphocytes (CBC) 1.3 K/uL (0.7-4.9); Hematocrit 38.2 % (39.6-49.0); Lymphocytes % 12.4 % (15.3-44.8); MPV 6.2 fL (7.6-11.3); RBC Red Blood Cell Count 4.19 M/uL (4.33-5.43)
[2021-09-25 16:36] LABS: Protime INR 0.97
[2021-09-25 16:52] LABS: ALT/SGPT 22 U/L (12-78); AST/SGOT 11 U/L (15-37); Alkaline Phosphatase 110 U/L (45-117); BUN Blood Urea Nitrogen 30 mg/dL (7-18); Bicarbonate 28 mmol/L (21-32); Bilirubin Direct < 0.1 mg/dL (0-0.2); Bilirubin Total 0.2 mg/dL (0.2-1.0); Glucose Level 144 mg/dL (74-106); Magnesium 1.8 mg/dL (1.8-2.4); NT PRO-BNP 139 pg/mL (<125); Potassium 3.9 mmol/L (3.5-5.1); Protein, Total 6.9 g/dL (6.4-8.2); Sodium Level 140 mmol/L (136-145)
--- NOTE | 2021-09-25 16:55 | RAD REPORT ---
EXAM DESCRIPTION: [facility] Single View09/25/2021 4:41 pm CLINICAL HISTORY: Chest pain COMPARISON: May 2021 FINDINGS: The lungs appear clear of acute infiltrate. The heart is normal size IMPRESSION: No acute abnormalities displayed
--- NOTE | 2021-09-25 18:07 | EDPHYS ---
Physician Documentation [facility] Name: Taj Perez Age: 71 yrs Sex: Male : 1950 Arrival Date: 09/25/2021 Time: 15:47 Bed 6 Private MD: ED Physician Bassem Lehman HPI: 09/25 16:05 This 71 yrs old Male presents to ER via EMS with complaints of Chest Pain. cp 16:05 The patient or guardian reports chest pain that is located primarily in the substernal cp area. Onset: suddenly, today. The pain does not radiate. 16:05 The chest pain is described as stabbing. Duration: The patient or guardian reports cp multiple episodes, that have now resolved. 16:05 Patient reports pain started suddenly while walking in [employer]. reports cp patient collapsed from pain but denies patient being unresponsive. Historical: - Allergies: 15:57 Risperdal; tw2 15:57 Oxycodone HCl; tw2 15:57 Ibuprofen; tw2 - Home Meds: 15:57 Plavix 75 mg Oral tab 1 tab once daily [Active]; [facility] [[facility]]; tw2 - PMHx: 15:57 Kidney stones; Myocardial infarction; psychiatric; spinal fusion; tw2 - PSHx: 15:57 heart stent/cath; tw2 - Immunization history:: Adult Immunizations. - Social history:: Smoking status: . ROS: 16:10 Constitutional: Negative for body aches, chills, fever, poor PO intake. cp 16:10 Eyes: Negative for injury, pain, redness, and discharge. cp 16:10 ENT: Negative for ear pain, sore throat, difficulty swallowing, difficulty handling secretions. 16:10 Cardiovascular: Positive for chest pain. 16:10 Respiratory: Negative for cough, shortness of breath, wheezing. 16:10 Abdomen/GI: Negative for abdominal pain, nausea, vomiting, and diarrhea. 16:10 Back: Negative for pain at rest, pain with movement. 16:10 Neuro: Negative for altered mental status, headache, syncope, weakness. 16:10 All other systems are negative. Exam: 16:08 ECG was reviewed by the Attending Physician. cp 16:15 Constitutional: The patient appears in no acute distress, alert, awake, comfortable, cp non-diaphoretic, non-toxic, well developed, well nourished, obese. 16:15 Head/Face: Normocephalic, atraumatic. cp 16:15 Eyes: Periorbital structures: appear normal, Conjunctiva: normal, no exudate, no injection, Sclera: no appreciated abnormality, Lids and lashes: appear normal, bilaterally. 16:15 ENT: External ear(s): are unremarkable, Nose: is normal, Mouth: Lips: moist, Oral mucosa: moist, Posterior pharynx: Airway: no evidence of obstruction, patent. 16:15 Neck: ROM/movement: is normal, is supple, without pain, no range of motions limitations. 16:15 Chest/axilla: Inspection: normal, Palpation: is normal, no crepitus, no tenderness. 16:15 Cardiovascular: Rate: tachycardic, Rhythm: regular, Pulses: Pulses are 2+ in right radial artery and left radial artery. Edema: is not appreciated, JVD: is not appreciated. 16:15 Respiratory: the patient does not display signs of respiratory distress, Respirations: normal, no use of accessory muscles, no retractions, labored breathing, is not present, Breath sounds: are clear throughout. 16:15 Abdomen/GI: Inspection: abdomen appears normal, Palpation: abdomen is soft and non-tender, in all quadrants. 16:15 Back: pain, is absent, ROM is normal. 16:15 Neuro: Orientation: to person, place \\T\\ time. Mentation: is normal, Motor: moves all fours, strength is normal, Sensation: is normal. Vital Signs: 15:47 BP 132 / 85; Pulse 109; Resp 14; Temp 97.8; Pulse Ox 97% on R/A; tw2 16:09 Weight 115.67 kg (R); Height 5 ft. 9 in. (175.26 cm); tw2 16:30 BP 102 / 77; Pulse 112; Resp 16 S; Pulse Ox 98% on R/A; jg9 17:00 BP 119 / 65; Pulse 110; Resp 16 S; Pulse Ox 98% on R/A; jg9 17:30 BP 111 / 74; Pulse 103; Resp 18; Pulse Ox 99% on R/A; tw2 18:30 BP 122 / 74; Pulse 88; Resp 21; Pulse Ox 98% on R/A; tw2 19:58 BP 127 / 66; Pulse 90; Resp 18; Pulse Ox 99% on R/A; nicholas 16:09 Body Mass Index 37.66 (115.67 kg, 175.26 cm) tw2 MDM: 16:07 Patient medically screened. cp 18:05 Data reviewed: vital signs, nurses notes, lab test result(s), EKG, radiologic studies, cp plain films. 18:05 Differential diagnosis: abnormal EKG, acute myocardial infarction, pericarditis, cp pleurisy, pneumonia, pneumothorax, pulmonary embolus, stable angina, thoracic aortic disection, unstable angina. The patient was not given aspirin in the Emergency Department. Not indicated due to patient's past medical history. Counseling: I had a detailed discussion with the patient and/or guardian regarding: the historical points, exam findings, and any diagnostic results supporting the discharge/admit diagnosis, lab results, radiology results, the need for further work-up and treatment in the hospital. Physician consultation: Miah RAVI was called at 18:05, was contacted at 18:05, regarding admission, to the telemetry unit. patient's condition. 09/25 16:06 Order name: Basic Metabolic Panel; Complete Time: 17:01 09/25 17:01 Interpretation: Normal except: GLUC 144; BUN 30; CRE 1.89; GFR 35. cp 09/25 16:06 Order name: CBC with Diff; Complete Time: 16:51 09/25 16:52 Interpretation: Normal except: RBC 4.19; HGB 12.9; HCT 38.2; MPV 6.2; EMILIANO% 83.5; LYM% cp 12.4; NEUT A 9.0. 09/25 16:06 Order name: LFT's; Complete Time: 17:01 cp 09/25 17:13 Interpretation: Normal except: AST 11; ALB 3.0; GLOB 3.9; A/G 0.8. cp 09/25 16:06 Order name: Magnesium; Complete Time: 17:01 cp 09/25 16:06 Order name: NT PRO-BNP; Complete Time: 17:01 cp 09/25 16:06 Order name: PT-INR; Complete Time: 16:51 cp 09/25 16:06 Order name: Troponin HS; Complete Time: 17:01 09/25 17:01 Interpretation: Troponin HS 14.10; Reviewed. 09/25 16:06 Order name: XRAY Chest (1 view); Complete Time: 17:01 09/25 17:14 Interpretation: Report reviewed. 09/25 16:06 Order name: EKG; Complete Time: 16:07 09/25 16:06 Order name: Cardiac monitoring; Complete Time: 16:08 09/25 16:06 Order name: EKG - Nurse/Tech; Complete Time: 16:08 09/25 16:06 Order name: IV Saline Lock; Complete Time: 16:15 09/25 16:06 Order name: COVID-19/FLU A+B (Document "Date of Onset" if Symptomatic) 09/25 16:06 Order name: Labs collected and sent; Complete Time: 16:20 09/25 16:06 Order name: O2 Per Protocol; Complete Time: 16:20 09/25 16:06 Order name: O2 Sat Monitoring; Complete Time: 16:20 EC:08 Rate is 104 beats/min. Rhythm is regular. WI interval is normal. QRS interval is cp normal. QT interval is normal. T waves are Inverted in leads III, aVR. Interpreted by me. Reviewed by me. Administered Medications: 18:14 Drug: Metoprolol 2.5 mg {Note: HR 108, 127/75.} Route: IVP; Site: right antecubital; tw2 19:40 Follow up: Response: No adverse reaction lg3 Disposition: 09/26 07:45 Co-signature as Attending Physician, Bassem Lehman MD I agree with the assessment and kdr plan of care. Disposition Summary: 09/25/21 18:06 Hospitalization Ordered Hospitalization Status: Observation cp Provider: Miah Padilla cp Location: Telemetry/MedSurg (observation) cp Condition: Stable cp Problem: new cp Symptoms: have improved cp Bed/Room Type: Standard Room Assignment: 202(09/25/21 18:36) dw Diagnosis - Angina pectoris, unspecified cp Forms: - Medication Reconciliation Form cp - SBAR form cp Signatures: Dispatcher [employer] Simin Liu RN RN dw Rittger, Kevin, MD MD [facility] Berhane Diallo PA PA cp Wise, Tara, RN RN tw2 Amanda Marquez RN lg3 Corrections: (The following items were deleted from the chart) 09/25 18:36 18:06 cp dw
--- NOTE | 2021-09-25 18:07 | ER ---
Nurse's Notes [facility] Name: Taj Perez Age: 71 yrs Sex: Male : 1950 Arrival Date: 09/25/2021 Time: 15:47 Bed 6 Private MD: Diagnosis: Angina pectoris, unspecified Presentation: 09/25 15:47 Chief complaint: EMS states: pt was walking in [facility] started having CP. came to sit tw2 in his truck. felt better so went back into store then the chest pain started having stabbing chest pain again. so he took 1 nitro tablet which he has because he has previous heart stents. pain was relieved with 1 nitrol. vs stable. BGL 181 mg/dL. Coronavirus screen: At this time, the client does not indicate any symptoms associated with coronavirus-19. Ebola Screen: Patient denies travel to an Ebola-affected area in the 21 days before illness onset. Initial Sepsis Screen: Does the patient meet any 2 criteria? No. Patient's initial sepsis screen is negative. Does the patient have a suspected source of infection? No. Patient's initial sepsis screen is negative. Risk Assessment: Do you want to hurt yourself or someone else? Patient reports no desire to harm self or others. Onset of symptoms was September 25, 2021. 15:47 Acuity: TRISH 3 tw2 15:47 Method Of Arrival: [facility] Triage Assessment: 16:04 General: Appears in no apparent distress. obese, well groomed, Behavior is calm, tw2 cooperative, appropriate for age. Pain: Denies pain. Neuro: Level of Consciousness is awake, alert, obeys commands, Oriented to person, place, time, situation. Cardiovascular: Capillary refill < 3 seconds Patient's skin is warm and dry. Respiratory: Airway is patent Respiratory effort is even, unlabored, Respiratory pattern is regular, symmetrical. GI: No signs and/or symptoms were reported involving the gastrointestinal system. Abdomen is round non-distended. Musculoskeletal: Circulation, motion, and sensation intact. Range of motion: intact in all extremities. Historical: - Allergies: 15:57 Risperdal; tw2 15:57 Oxycodone HCl; tw2 15:57 Ibuprofen; tw2 - Home Meds: 15:57 Plavix 75 mg Oral tab 1 tab once daily [Active]; [facility]" [[facility]]; tw2 - PMHx: 15:57 Kidney stones; Myocardial infarction; psychiatric; spinal fusion; tw2 - PSHx: 15:57 heart stent/cath; tw2 - Immunization history:: Adult Immunizations. - Social history:: Smoking status: . Screenin:56 Abuse screen: Denies threats or abuse. Nutritional screening: No deficits noted. tw2 Tuberculosis screening: No symptoms or risk factors identified. Fall Risk Secondary diagnosis (15 points) impaired mobility. Assessment: 16:00 Reassessment: provider at bedside. tw2 16:07 Reassessment: see triage assessment. tw2 19:03 Reassessment: Patient appears in no apparent distress at this time. No changes from tw2 previously documented assessment. Patient and/or family updated on plan of care and expected duration. Pain level reassessed. Patient is alert, oriented x 3, equal unlabored respirations, skin warm/dry/pink. 19:59 General: Report called as pt is going to bed 202, upstairs. . nicholas Vital Signs: 15:47 BP 132 / 85; Pulse 109; Resp 14; Temp 97.8; Pulse Ox 97% on R/A; tw2 16:09 Weight 115.67 kg (R); Height 5 ft. 9 in. (175.26 cm); tw2 16:30 BP 102 / 77; Pulse 112; Resp 16 S; Pulse Ox 98% on R/A; jg9 17:00 BP 119 / 65; Pulse 110; Resp 16 S; Pulse Ox 98% on R/A; jg9 17:30 BP 111 / 74; Pulse 103; Resp 18; Pulse Ox 99% on R/A; tw2 18:30 BP 122 / 74; Pulse 88; Resp 21; Pulse Ox 98% on R/A; tw2 19:58 BP 127 / 66; Pulse 90; Resp 18; Pulse Ox 99% on R/A; nicholas 16:09 Body Mass Index 37.66 (115.67 kg, 175.26 cm) tw2 ED Course: 15:47 Patient arrived in ED. eb 15:56 Arm band placed on. tw2 15:58 Berhane Diallo PA is PHCP. cp 15:58 Bassem Lehman MD is Attending Physician. cp 16:00 EKG done, by ED staff, reviewed by Berhane RAVI. 3 16:03 Patient has correct armband on for positive identification. Placed in gown. Bed in low mh5 position. Call light in reach. Side rails up X2. Adult w/ patient. Warm blanket given. Pillow given. hazardous materials driver on. Pulse ox on. NIBP on. 16:04 Triage completed. tw2 16:04 Maintain EMS IV. Dressing intact. Site clean \\T\\ dry. Gauge \\T\\ site: 20 g. blood collected.tw 2 16:06 Yoana Cope, RN is Primary Nurse. jg9 16:20 Basic Metabolic Panel Sent. tw2 16:20 CBC with Diff Sent. tw2 16:20 LFT's Sent. tw2 16:20 Magnesium Sent. tw2 16:20 NT PRO-BNP Sent. tw2 16:20 PT-INR Sent. tw2 16:20 Troponin HS Sent. tw2 16:41 XRAY Chest (1 view) In Process Unspecified. EDMS 17:00 Patient requesting a chair to sit in-this nurse provided him with one. jg9 18:06 Miah Padilla PA is Hospitalizing Provider. cp 20:33 No provider procedures requiring assistance completed. Inserted saline lock: in right 3 antecubital area, using aseptic technique. 20:34 Patient admitted, IV remains in place. lg3 Administered Medications: 18:14 Drug: Metoprolol 2.5 mg {Note: HR 108, 127/75.} Route: IVP; Site: right antecubital; tw2 19:40 Follow up: Response: No adverse reaction lg3 Outcome: 18:06 Decision to Hospitalize by Provider. cp 20:33 Admitted to Med/surg Report called to [facility] 20:33 Condition: stable 20:33 Instructed on the need for admit. 21:11 Patient left the ED. nicholas Signatures: Dispatcher [employer] EDAZ Berhane Diallo PA PA cp Wise, Tara, RN RN 2 Vandana Holguin [facility] Crystal Colunganna [facility] Shira Arango Lacie, RN RN 3 Yoana Cope RN RN jg9 Elizabet Dow RN RN nicholas Corrections: (The following items were deleted from the chart) 16:15 16:04 Maintain EMS IV. Dressing intact. Site clean \\T\\ dry. mh5 tw2
[2021-09-25] MEDS ORDERED: METOPROLOL TARTRATE 5 MG/5 ML INJ IV ONE (18:09)
[2021-09-25 18:12] LABS: SARS-COV-2 RT PCR NEGATIVE (NEGATIVE)
--- NOTE | 2021-09-25 19:25 | P.HP ---
Certification for Inpatient Patient admitted to: Observation With expected LOS: <2 Midnights Patient will require the following post-hospital care: None Practitioner: I am a practitioner with admitting privileges, knowledge of patient current condition, hospital course, and medical plan of care. Services: Services provided to patient in accordance with Admission requirements found in Title 42 Section 412.3 of the Code of Federal Regulations Patient History Date of Service: 09/25/21 Primary Care Provider: RONNI Reason for admission: chest pain History of Present Illness: Mr. Perez is a 71 yo M with CAD, CKD and COPD who presents with 8/10 sternal chest pain with exertion. He describes the pain as feeling like a knife is st abbing him. He took a nitroglycerin which he says helped tremendously. Onset of pain happened when he was leaving [employer] and walking to his truck, then again as he was walking out of [employer]. He says he saw his traffic manager about 4 months ago. He had a cardiac stent placed 3 years ago and has not had a heart cath or stress test since then. Initial troponin within normal limits. - Past Medical/Surgical History -: CAD -: COPD -: CKD -: spinal fusion -: cardiac stent - Family History Family History: Reviewed- Non-Contributory - Social History Smoking Status: Former smoker Alcohol use: No CD- Drugs: No Caffeine use: No Place of Residence: Home Review of Systems 10-point ROS is otherwise unremarkable General: Unremarkable Eyes: Unremarkable ENT: Unremarkable Respiratory: Unremarkable Cardiovascular: Chest Pain Gastrointestinal: Unremarkable Genitourinary: Unremarkable Musculoskeletal: Unremarkable Integumentary: Unremarkable Neurological: Unremarkable Lymphatics: Unremarkable Physical Examination - Physical Exam General: Alert, In no apparent distress, Obese HEENT: Atraumatic, PERRLA, Mucous membr. moist/pink, EOMI, Sclerae nonicteric Neck: Supple, 2+ carotid pulse no bruit, No LAD, Without JVD or thyroid abnormality Respiratory: Clear to auscultation bilaterally, Normal air movement Cardiovascular: Regular rate/rhythm, Normal S1 S2 Gastrointestinal: Normal bowel sounds, No tenderness Musculoskeletal: No tenderness Integumentary: No rashes Neurological: Normal speech, Normal strength at 5/5 x4 extr, Normal tone, Normal affect Lymphatics: No axilla or inguinal lymphadenopathy - Studies Laboratory Data (last 24 hrs) 09/25/21 16:13: PT 11.2, INR 0.97 09/25/21 16:13: WBC 10.80, Hgb 12.9 L, Hct 38.2 L, Plt Count 296 09/25/21 16:13: Sodium 140, Potassium 3.9, BUN 30 H, Creatinine 1.89 H, Glucose 144 H, Magnesium 1.8, Total Bilirubin 0.2, AST 11 L, ALT 22, Alkaline Phosphatase 110 Assessment and Plan - Problems (Diagnosis) (1) Chest pain Current Visit: Yes Status: Acute Qualifiers: Chest pain type: unspecified Qualified Code(s): R07.9 - Chest pain, unspecified (2) CAD (coronary artery disease) Current Visit: Yes Status: Chronic Qualifiers: Coronary Disease-Associated Artery/Lesion type: [place] artery [place] vs. transplanted heart: [place] heart Associated angina: with stable angina Qualified Code(s): I25.118 - Atherosclerotic heart disease of [place] coronary artery with other forms of angina pectoris (3) CKD (chronic kidney disease) Current Visit: Yes Status: Chronic Qualifiers: Chronic kidney disease stage: stage 3 (moderate) Chronic kidney disease stage 3 subtype: stage 3b (GFR 30-44) Qualified Code(s): N18.32 - Chronic kidney disease, stage 3b (4) COPD (chronic obstructive pulmonary disease) Current Visit: Yes Status: Chronic Qualifiers: COPD type: unspecified COPD Qualified Code(s): J44.9 - Chronic obstructive pulmonary disease, unspecified - Plan cardiology consulted on tele, trend troponin, repeat EKG daily plavix, metoprolol, statin morphine and nitroglycerin as needed for pain control lipid and thyroid profile pending DVT ppx Discharge Plan: Home Plan to discharge in: 24 Hours - Advance Directives Does patient have a Living Will: No Does patient have a Durable POA for Healthcare: No - Code Status/Comfort Care Code Status Assessed: Yes (full code ) Critical Care: No Time Spent Managing Pts Care (In Minutes): 70
[2021-09-25 21:12] VITALS: BMI 37.8
[2021-09-25] MEDS ORDERED: ONDANSETRON 4 MG/2 ML VIAL IV PRN (21:25)
[2021-09-25] MEDS ORDERED: NITROGLYCERIN 0.4 MG/TAB SL PRN (21:25)
[2021-09-25] MEDS ORDERED: MORPHINE 2 MG/ML SYR IV PRN (21:25)
[2021-09-25] MEDS ORDERED: ACETAMINOPHEN 500 MG TAB PO PRN (21:25)
[2021-09-25] MEDS: INSULIN -REGULAR HUMAN 50 UNIT/0.5 ML ML SQ SCH (21:25)
[2021-09-25] MEDS: ATORVASTATIN 40 MG TAB PO SCH (23:11)
[2021-09-26] MEDS: MELATONIN 5 MG TABLET PO SCH ×2 (01:38→21:06)
[2021-09-26 03:23] LABS: Absolute Lymphocytes (CBC) 1.9 K/uL (0.7-4.9); Hematocrit 38.4 % (39.6-49.0); Lymphocytes % 20.5 % (15.3-44.8); MPV 6.6 fL (7.6-11.3); RBC Red Blood Cell Count 4.17 M/uL (4.33-5.43)
[2021-09-26 03:42] LABS: Potassium 3.9 mmol/L (3.5-5.1); Thyroid Stimulating Hormone 0.794 uIU/mL (0.360-3.740)
[2021-09-26] MEDS ORDERED: METOPROLOL TAR 25 MG TAB PO SCH (06:00)
[2021-09-26] MEDS: INSULIN -REGULAR HUMAN 50 UNIT/0.5 ML ML SQ SCH ×4 (07:30→21:00)
[2021-09-26] MEDS ORDERED: POTASSIUM CL SA 10 MEQ TAB PO ONE (09:00)
[2021-09-26] MEDS: CLOPIDOGREL 75 MG TABLET PO SCH (09:19)
[2021-09-26] MEDS: ENOXAPARIN 40 MG/0.4 ML SQ SCH (09:19)
--- NOTE | 2021-09-26 12:36 | P.PN ---
Subjective Date of Service: 09/26/21 Primary Care Provider: RONNI Chief Complaint: chest pain Patient denies any chest pain at the moment. Troponin trended negative. Patient denies any cough. He reports shortness of breath with exertion and has to frequently stop to use his inhalers. Physical Examination - Vital Signs Temperature: 96.9 F Blood Pressure: 141/90 Pulse: 77 Respirations: 18 Pulse Ox (%): 98 - Physical Exam General: Alert, In no apparent distress, Oriented x3 HEENT: Mucous membr. moist/pink Neck: Supple, JVD not distended Respiratory: Clear to auscultation bilaterally, Diminished (Bilateral) Cardiovascular: No edema, Regular rate/rhythm, Normal S1 S2 Gastrointestinal: Soft and benign, Non-distended Musculoskeletal: No swelling, No tenderness Integumentary: No rashes, No erythema, No cyanosis Neurological: Normal speech, Normal strength at 5/5 x4 extr - Studies Laboratory Data (last 24 hrs) 09/25/21 16:13: PT 11.2, INR 0.97 09/25/21 16:13: WBC 10.80, Hgb 12.9 L, Hct 38.2 L, Plt Count 296 09/25/21 16:13: Sodium 140, Potassium 3.9, BUN 30 H, Creatinine 1.89 H, Glucose 144 H, Magnesium 1.8, Total Bilirubin 0.2, AST 11 L, ALT 22, Alkaline Phosphatase 110 Assessment And Plan - Current Problems (Diagnosis) (1) Chest pain Current Visit: Yes Status: Acute Qualifiers: Chest pain type: unspecified Qualified Code(s): R07.9 - Chest pain, unspecified (2) CAD (coronary artery disease) Current Visit: Yes Status: Chronic Qualifiers: Coronary Disease-Associated Artery/Lesion type: [place] artery [place] vs. transplanted heart: [place] heart Associated angina: with stable angina Qualified Code(s): I25.118 - Atherosclerotic heart disease of [place] coronary artery with other forms of angina pectoris (3) CKD (chronic kidney disease) Current Visit: Yes Status: Chronic Qualifiers: Chronic kidney disease stage: stage 3 (moderate) Chronic kidney disease stage 3 subtype: stage 3b (GFR 30-44) Qualified Code(s): N18.32 - Chronic kidney disease, stage 3b (4) COPD exacerbation Current Visit: Yes Status: Acute - Plan I suspect progressive COPD. Patient with history of coronary to disease and cardiac stent. Troponin trended negative. Aspirin, Plavix, Lipitor. Metoprolol. Cardiology consult. Will treat BRIDGES as COPD exacerbation. We will give a dose of IV steroid, scheduled bronchodilators. No indication for antibiotics.
[2021-09-26] MEDS: IPRATROPIUM BROM 0.5MG/2.5ML NEB SCH ×2 (13:15→19:30)
[2021-09-26] MEDS: ALBUTEROL 2.5 MG/3 ML NEB SOL NEB SCH ×2 (13:15→19:30)
--- NOTE | 2021-09-26 14:35 | CON ---
Date of Consultation: 09/26/2021 Reason For Consultation: Chest pain. History Of Present Illness: This is a 71-year-old male, known history of coronary artery disease, st atus post cardiac stents placement in the past. Last was about 3 years ago. He follows in the [facility]. Has history of chronic kidney disease, COPD. Presented to the emergency room after he start ed feeling like chest pain, pressure like, after lunch. Took nitroglycerin, got some relief and then pain came back, so he had to take another nitroglycerin, called ambulance, and chest pain has resolv ed. The patient claims that his chest pain is getting more intense, but not necessarily more frequen t. Denies any chest pain at this point, but he has some shortness of breath as well. No apparent CO PD. Past Medical History: As outlined above in HPI. Medications: Refer reconciliation sheet for detailed list. Allergies: OXYCODONE. Family History: No premature coronary artery disease or cancer. Social History: He is an ex-smoker. Does not drink, use any drugs. Review of Systems: All systems reviewed and they were negative except mentioned in HPI. Physical Examination: Vital Signs: Temperature is 96.9, pulse 77, breathing 18, blood pressure 141/90, saturating 98% on r oom air. General: Pleasant elderly male, in no apparent distress. Head and Neck: Pupils are equal, reactive to light. Intact eye movements. No JVD. No cervical lym phadenopathy. Neck: Supple. Thyroid is not enlarged. Lungs: Clear to auscultation bilaterally. No rhonchi, rales, or crackles. No accessory muscle use. Heart: Regular rate and rhythm. No extra sounds. Abdomen: Soft, nontender. Bowel sounds positive. No organomegaly. No masses or hernia. No rigidi ty or rebound. Extremities: No edema, clubbing, cyanosis. Intact pulses. Skin: No rash noted. Neurologic: Alert, awake, oriented x3. No acute focal deficits appreciated. Investigations: White blood cell count 9.10, hemoglobin 12.6. Creatinine is 1.81. Troponin x3 are negative. Assessment And Recommendation: Chest pain with known history of coronary artery disease. The pain s eems to be typical, suggestive of cardiac in origin. I recommend that this patient get an exercise n uclear stress test as well as echocardiogram. His symptoms could be suggestive of unstable angina. If stress test is abnormal, then coronary angiogram will be warranted. In the interim keep the patie nt on aspirin, can use nitroglycerin patch 1 inch to the chest wall every 8 hours as needed, and use morphine sulfate for pain control if the pain is to happen again. Thank you for the consult. /BAYRON Voice ID: [id number] Report ID: [id number]
[2021-09-26] MEDS: Latanoprost/Pf [Latanoprost 0.005% Eye Drop] 7.5 ML Drops OPTH SCH (15:09)
[2021-09-26] MEDS ORDERED: ARIPiprazole 5 MG TAB PO ONE (16:00)
[2021-09-26] MEDS: ISOSORBIDE MONO SR 30 MG TAB PO SCH (17:00)
[2021-09-26] MEDS: METHYLPREDNISOLONE 40 MG INJ IV SCH (18:40)
[2021-09-26] MEDS: Netarsudil Mesylat/Latanoprost [Rocklatan 0.02%-0.005% Eye Drp] 2.5 ML OPTH SCH (21:00)
[2021-09-26] MEDS: ATORVASTATIN 40 MG TAB PO SCH (21:06)
[2021-09-27] MEDS: METHYLPREDNISOLONE 40 MG INJ IV SCH ×2 (00:10→05:24)
[2021-09-27] MEDS: ALBUTEROL 2.5 MG/3 ML NEB SOL NEB SCH ×4 (01:00→20:00)
[2021-09-27] MEDS: IPRATROPIUM BROM 0.5MG/2.5ML NEB SCH ×4 (01:00→20:00)
[2021-09-27 05:45] LABS: Absolute Lymphocytes (CBC) 0.6 K/uL (0.7-4.9); Hematocrit 37.7 % (39.6-49.0); MPV 6.5 fL (7.6-11.3); RBC Red Blood Cell Count 4.12 M/uL (4.33-5.43)
[2021-09-27 06:10] LABS: Magnesium 1.7 mg/dL (1.8-2.4); Potassium 4.4 mmol/L (3.5-5.1)
[2021-09-27] MEDS: INSULIN -REGULAR HUMAN 50 UNIT/0.5 ML ML SQ SCH ×4 (07:30→21:00)
[2021-09-27] MEDS ORDERED: MAGNESIUM SULFATE 1 gm IVPB 1 GM/100 ML BAG IV ONE (07:30)
[2021-09-27] MEDS: TIOTROPIUM 5 SPRAYS/INHALER IH SCH (09:00)
[2021-09-27] MEDS: Latanoprost/Pf [Latanoprost 0.005% Eye Drop] 7.5 ML Drops OPTH SCH (09:00)
[2021-09-27] MEDS: FUROSEMIDE 40 MG TABLET PO SCH ×2 (09:00→09:24)
[2021-09-27] MEDS: ENOXAPARIN 40 MG/0.4 ML SQ SCH (09:24)
[2021-09-27] MEDS: CLOPIDOGREL 75 MG TABLET PO SCH (09:25)
[2021-09-27] MEDS: MULTIVITAMIN TAB PO SCH (09:25)
[2021-09-27] MEDS: ISOSORBIDE MONO SR 30 MG TAB PO SCH (09:25)
[2021-09-27] MEDS: AMLODIPINE 10 MG TAB PO SCH (09:25)
[2021-09-27] MEDS: ARIPiprazole 5 MG TAB PO SCH (09:26)
[2021-09-27] MEDS: METOPROLOL XL 100 MG TAB PO SCH (09:26)
--- NOTE | 2021-09-27 11:17 | P.PN ---
Subjective Date of Service: 09/27/21 Primary Care Provider: AR Chief Complaint: chest pain Patient denies any chest pain at the moment. Troponin trended negative. He states he feels much better and wants to go home. Physical Examination - Vital Signs Temperature: 96.8 F Blood Pressure: 132/71 Pulse: 101 Respirations: 18 Pulse Ox (%): 94 - Physical Exam General: Alert, In no apparent distress HEENT: Mucous membr. moist/pink Neck: JVD not distended Respiratory: Clear to auscultation bilaterally, Normal air movement Cardiovascular: No edema, Regular rate/rhythm, Normal S1 S2 Gastrointestinal: Soft and benign, Non-distended Musculoskeletal: No swelling Integumentary: No rashes Neurological: Normal strength at 5/5 x4 extr Assessment And Plan - Current Problems (Diagnosis) (1) Chest pain Current Visit: Yes Status: Acute Qualifiers: Chest pain type: unspecified Qualified Code(s): R07.9 - Chest pain, unspecified (2) CAD (coronary artery disease) Current Visit: Yes Status: Chronic Qualifiers: Coronary Disease-Associated Artery/Lesion type: [place] artery [place] vs. transplanted heart: [place] heart Associated angina: with stable angina Qualified Code(s): I25.118 - Atherosclerotic heart disease of [place] coronary artery with other forms of angina pectoris (3) CKD (chronic kidney disease) Current Visit: Yes Status: Chronic Qualifiers: Chronic kidney disease stage: stage 3 (moderate) Chronic kidney disease stage 3 subtype: stage 3b (GFR 30-44) Qualified Code(s): N18.32 - Chronic kidney disease, stage 3b (4) COPD exacerbation Current Visit: Yes Status: Acute - Plan I suspect progressive COPD. Patient with history of coronary to disease and cardiac stent. Troponin trended negative. Continue aspirin, Plavix, Lipitor. Continue metoprolol. Patient seen by cardiology-Dr. Zacarias will recommend stress test as an inpatient. Continue scheduled bronchodilators. Change IV steroids to oral prednisone. No indication for antibiotics.
[2021-09-27] MEDS: LIDOCAINE 4% PATCH TD SCH (13:25)
--- NOTE | 2021-09-27 19:24 | PN ---
Date of Progress Note: 09/27/2021 Subjective: Seen by bedside. No further chest pain. Review of Systems: Does not have any chest pain or shortness of breath any more. No nausea, vomiting, or diarrhea. No abdominal pain. No history of urinary urgency. All other systems reviewed are negative. Objective: Vital Signs: Reviewed. Head and Neck: Pupils are equal and reactive to light. Intact eye movements. No JVD. No cervical lymphadenopathy. Neck is supple. Thyroid is not enlarged. Lungs: Clear to auscultation bilaterally. No rhonchi, rales, or crackles. No accessory muscle use. Heart: Regular rate and rhythm. No extra sounds. Abdomen: Soft, nontender. Bowel sounds positive. No organomegaly. No masses or hernia. No rigidi ty or rebound. Extremities: No clubbing or cyanosis. Intact pulses. Skin: No rashes. Neuro: Alert, awake, oriented x3. No acute focal deficits appreciated.. Investigations: Labs reviewed. Assessment And Recommendation: Chest pain, suggestive of unstable angina. Recommend a nuclear stres s test tomorrow, and based on that, decision will be made if a coronary angiogram will be needed or n ot. /MODL Voice ID: [id number] Report ID: [id number]
[2021-09-27] MEDS: ATORVASTATIN 40 MG TAB PO SCH (20:34)
[2021-09-27] MEDS: predniSONE 20 MG TAB PO SCH (20:34)
[2021-09-27] MEDS: Netarsudil Mesylat/Latanoprost [Rocklatan 0.02%-0.005% Eye Drp] 2.5 ML OPTH SCH (20:34)
[2021-09-27] MEDS: MELATONIN 5 MG TABLET PO SCH (20:34)
[2021-09-28] MEDS: ALBUTEROL 2.5 MG/3 ML NEB SOL NEB SCH ×3 (01:45→14:00)
[2021-09-28] MEDS: IPRATROPIUM BROM 0.5MG/2.5ML NEB SCH ×3 (01:45→14:00)
[2021-09-28 05:48] LABS: Absolute Lymphocytes (CBC) 0.9 K/uL (0.7-4.9); Hematocrit 39.6 % (39.6-49.0); Lymphocytes % 5.6 % (15.3-44.8); MPV 6.2 fL (7.6-11.3); RBC Red Blood Cell Count 4.31 M/uL (4.33-5.43)
[2021-09-28 05:58] LABS: Magnesium 2.2 mg/dL (1.8-2.4); Potassium 4.8 mmol/L (3.5-5.1)
[2021-09-28] MEDS: INSULIN -REGULAR HUMAN 50 UNIT/0.5 ML ML SQ SCH ×3 (07:30→16:28)
[2021-09-28 08:53] LABS: Blood Morphology Comment NOT SEEN (NOT SEEN); Platelet Estimate ADEQ
[2021-09-28] MEDS: ISOSORBIDE MONO SR 30 MG TAB PO SCH (09:00)
[2021-09-28] MEDS: AMLODIPINE 10 MG TAB PO SCH (09:00)
[2021-09-28] MEDS: CLOPIDOGREL 75 MG TABLET PO SCH (09:00)
[2021-09-28] MEDS: Latanoprost/Pf [Latanoprost 0.005% Eye Drop] 7.5 ML Drops OPTH SCH (09:00)
[2021-09-28] MEDS: FUROSEMIDE 40 MG TABLET PO SCH (09:00)
[2021-09-28] MEDS: LIDOCAINE 4% PATCH TD SCH (09:00)
[2021-09-28] MEDS: TIOTROPIUM 5 SPRAYS/INHALER IH SCH (09:00)
[2021-09-28] MEDS: predniSONE 20 MG TAB PO SCH (09:00)
[2021-09-28] MEDS: METOPROLOL XL 100 MG TAB PO SCH (09:00)
[2021-09-28] MEDS: ARIPiprazole 5 MG TAB PO SCH (09:00)
[2021-09-28] MEDS: MULTIVITAMIN TAB PO SCH (09:00)
[2021-09-28] MEDS: ENOXAPARIN 40 MG/0.4 ML SQ SCH (09:15)
[2021-09-28 12:55] VITALS: BP 149/85; TEMP 97.1
--- NOTE | 2021-09-28 13:06 | P.DS ---
Admission Date: 09/28/21 Discharge Date: 09/28/21 Primary Care Provider: MA Disposition: ROUTINE DISCHARGE Discharge Condition: FAIR Reason for Admission: chest pain - Problems (1) Chest pain Current Visit: Yes Status: Acute Qualifiers: Chest pain type: unspecified Qualified Code(s): R07.9 - Chest pain, unspecified (2) CAD (coronary artery disease) Current Visit: Yes Status: Chronic Qualifiers: Coronary Disease-Associated Artery/Lesion type: [place] artery [place] vs. transplanted heart: [place] heart Associated angina: with stable angina Qualified Code(s): I25.118 - Atherosclerotic heart disease of [place] coronary artery with other forms of angina pectoris (3) CKD (chronic kidney disease) Current Visit: Yes Status: Chronic Qualifiers: Chronic kidney disease stage: stage 3 (moderate) Chronic kidney disease stage 3 subtype: stage 3b (GFR 30-44) Qualified Code(s): N18.32 - Chronic kidney disease, stage 3b (4) COPD exacerbation Current Visit: Yes Status: Acute Brief History of Present Illness: Mr. Perez is a 71 yo M with CAD, CKD and COPD who presents with 8/10 sternal chest pain with exertion. He describes the pain as feeling like a knife is stabbing him. He took a nitroglycerin which he says helped tremendously. Onset of pain happened when he was leaving [email or web address] and walking to his truck, then [facility]. He says he saw his estate planning counselor about 4 months ago. He had a cardiac stent placed 3 years ago and has not had a heart cath or stress test since then. Initial troponin within normal limits. Patient hospitalized for further management. Hospital Course: Patient admitted to the medical floor. Troponin trended negative. He was also treated for COPD exacerbation with IV steroids and scheduled bronchodilators. Patient became chest pain-free. It appears his major symptom was shortness of breath with exertion. Patient seen in consultation by cardiology-Dr. Zacarias who recommended nuclear stress test. Patient kept hospitalized over the weekend. I am told nuclear stress test is not available today. Patient would like to do the stress test with the [facility]. He is clinically stable and currently asymptomatic. He is discharged with a short course of prednisone therapy. . Vital Signs/Physical Exam: Temp Pulse Resp BP Pulse Ox 97.1 F 89 20 149/85 H 98 09/28/21 12:00 09/28/21 12:00 09/28/21 12:00 09/28/21 12:00 09/28/21 12:00 General: Alert, In no apparent distress, Oriented x3 HEENT: Mucous membr. moist/pink Neck: JVD not distended Respiratory: Clear to auscultation bilaterally, Normal air movement Cardiovascular: No edema, Regular rate/rhythm, Normal S1 S2 Gastrointestinal: Soft and benign, Non-distended, No tenderness Musculoskeletal: No swelling Integumentary: No rashes Neurological: Normal strength at 5/5 x4 extr Laboratory Data at Discharge: WBC 15.50 K/uL (4.3-10.9) H D 09/28/21 05:27 Hgb 12.9 g/dL (13.6-17.9) L 09/28/21 05:27 Hct 39.6 % (39.6-49.0) 09/28/21 05:27 Plt Count 317 K/uL (152-406) D 09/28/21 05:27 PT 11.2 SECONDS (9.5-12.5) 09/25/21 16:13 INR 0.97 09/25/21 16:13 Sodium 139 mmol/L (136-145) 09/28/21 05:27 Potassium 4.8 mmol/L (3.5-5.1) 09/28/21 05:27 BUN 40 mg/dL (7-18) H 09/28/21 05:27 Creatinine 1.88 mg/dL (0.55-1.3) H 09/28/21 05:27 Glucose 131 mg/dL (74-106) H 09/28/21 05:27 Phosphorus 3.0 mg/dL (2.5-4.9) 09/27/21 05:03 Magnesium 2.2 mg/dL (1.8-2.4) D 09/28/21 05:27 Total Bilirubin 0.2 mg/dL (0.2-1.0) 09/25/21 16:13 AST 11 U/L (15-37) L 09/25/21 16:13 ALT 22 U/L (12-78) 09/25/21 16:13 Alkaline Phosphatase 110 U/L (45-117) 09/25/21 16:13 Triglycerides 189 mg/dL (<150) H 09/26/21 02:50 Cholesterol 161 mg/dL (<200) 09/26/21 02:50 HDL Cholesterol 33 mg/dL (40-60) L 09/26/21 02:50 Cholesterol/HDL Ratio 4.88 09/26/21 02:50 Home Medications: Acetaminophen 1 tab PO Q6H PRN 09/26/21 Amlodipine [Norvasc*] 10 mg PO DAILY 09/26/21 Aripiprazole [Abilify] 0.5 tab PO DAILY 09/26/21 Clindamycin HCl 2 cap PO Q6H 09/26/21 Furosemide 40 mg PO DAILY 09/26/21 Ipratropium/Albuterol Sulfate [Combivent Respimat 20-100 Mcg] 1 inhaler IH QID 09/26/21 Isosorbide Mononitrate [Isosorbide Mononitrate ER] 30 mg PO DAILY 09/26/21 Latanoprost/Pf [Latanoprost 0.005% Eye Drop] 1 drop EACH EYE DAILY 09/26/21 Lidocaine 4% Patch [Lidoderm 5% Patch*] 1 patch TD DAILY 09/26/21 Methyl Salicylate/Menthol [Muscle Rub Cream] 10 - 15 % TOP Q8HR PRN 09/26/21 Metoprolol Succinate 100 mg PO DAILY 09/26/21 Multivitamin [Multiple Vitamins] 1 tab PO DAILY 09/26/21 Netarsudil Mesylat/Latanoprost [Rocklatan 0.02%-0.005% Eye Drp] 2.5 ml EACH EYE BEDTIME 09/26/21 Nitroglycerin 0.4 mg SL PRN 09/26/21 Potassium Citrate [Potassium Citrate ER] 10 meq PO DAILY 09/26/21 Tiotropium [Spiriva Handihaler*] 18 mcg IH DAILY 09/26/21 Atorvastatin Calcium [Lipitor] 40 mg PO BEDTIME #30 tab 09/28/21 Clopidogrel Bisulfate [Plavix*] 75 mg PO DAILY #30 tablet 09/28/21 predniSONE [Prednisone*] 20 mg PO BID #10 tab 09/28/21 New Medications: Atorvastatin Calcium [Lipitor] 40 mg PO BEDTIME #30 tab Clopidogrel Bisulfate [Plavix*] 75 mg PO DAILY #30 tablet predniSONE [Prednisone*] 20 mg PO BID #10 tab Followup: OOT,OOT [Primary Care Provider] - Time spent managing pt's care (in minutes): 34
[2021-09-28 15:07] VITALS: O2SAT 100
== END 2021-09-28 16:46 | disposition home or self-care (01) | DRG 191 ==
LOC: ER 15:44 → ERHOLD 18:26 → 2ND 20:25 → OBSVTOIN 09-28 07:44
PROVIDERS: ADMIT Internal Medicine; ATTEND Internal Medicine
DX: J44.1 Chronic obstructive pulmonary disease with (acute) exacerbation (principal); I25.110 Atherosclerotic heart disease of native coronary artery with unstable angina pectoris; N18.32 Chronic kidney disease, stage 3b; Z95.5 Presence of coronary angioplasty implant and graft; Z20.822 Contact with and (suspected) exposure to COVID-19
CPT/HCPCS: 0240U; 36415; 71045; 80048; 80061; 80076; 82947; 83735; 83880; 84100; 84439; 84443; 84484; 85025; 85610; 93005; 94640; 96374; 99285; G0378; J1650; J2920; J3475; J7512

== ENCOUNTER 2022-08-05 17:13 | Emergency (ER) | payer OTHER ==
--- OUTSIDE RECORDS SUMMARY | 2022-08-05 17:15 | XMS REPORT | Continuity of Care Document ---
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 Allergies, Adverse Reactions, Alerts Allergy Allergy Status Severity Reaction(s) Onset Inactive Treating Comm ents Source Name Type Date Date Clinician GABAPENT DRUG Active Unknown-Cmnt Un davina IN [facility] 04-20 ity of 00:00: [address] IBUPROFE DRUG Active Unknown-Cmnt Un davina N [facility] 04-20 ity of 00:00: [address] RISPERID DRUG Active EP Effects Univ ers ONE [facility] 04-20 ity of 00:00: [address] Medications This patient has no known medications. Procedures This patient has no known procedures. Encounters Start End Encounter Admission Attending Care Care Encounter Source Date/Time Date/Time Type Type Clinicians Facility Department ID 2020-06-25 2020-06-[address] [facility] [id number] Univers 00:00:00 00:00:00 JACKIE ity [facility] 2020-06-20 2020-06-[address] [facility] [id number] Univers 09:00:00 09:00:00 JACKIE doni [facility] 2020-05-02 2020-05-02 Outpatient Merced WANG, [facility] [id number] Univers 08:30:00 08:30:00 ELLIOTT danilo [facility] 2019-11-22 2019-11-22 Outpatient Harriet-Mbayo VFP VFP [phone] [facility] 10:39:00 10:39:00 _A_ [id number] Family Practic e 2019-11-22 2019-11-22 Outpatient Harriet-Mbayo VFP VFP [phone] [facility] 10:39:00 10:39:00 _A_ [id number] Family Practic e Results This patient has no known results.
--- NOTE | 2022-08-05 17:40 | ER ---
Nurse's Notes [facility] Name: Taj Perez Age: 72 yrs Sex: Male : 1950 Arrival Date: 08/05/2022 Time: 17:20 Bed 19 Private MD: Diagnosis: Post operative bleeding left knee Presentation: 08/05 17:24 Ebola Screen: Patient negative for fever greater than or equal to 101.5 degrees ll1 Fahrenheit, and additional compatible Ebola Virus Disease symptoms. Initial Sepsis Screen: Does the patient meet any 2 criteria? No. Patient's initial sepsis screen is negative. Does the patient have a suspected source of infection? Yes: Bone or joint infection. Risk Assessment: Do you want to hurt yourself or someone else? Patient reports no desire to harm self or others. 17:24 Method Of Arrival: Wheelchair ll1 17:32 Chief complaint: Patient states: Had L knee replacement 6 days ago at [place]. Went into [address] today to run errands, L knee started bleeding. Took the dressing off, still bleeding. Family couldn't get the bleeding to stop. Coronavirus screen: Vaccine status: Patient reports receiving the 2nd dose of the covid vaccine. Client denies travel out of the [place] in the last 14 days. At this time, the client does not indicate any symptoms associated with coronavirus-19. Onset of symptoms was August 05, 2022. 17:32 Acuity: TRISH 4 ll1 Triage Assessment: 17:34 General: Appears in no apparent distress. Behavior is calm, cooperative, appropriate ll1 for age. Pain: Complains of pain in left leg Quality of pain is described as aching. Derm: Reports bleeding from surgical incision. Musculoskeletal: Circulation, motion, and sensation intact. Capillary refill < 3 seconds. 18:00 Injury Description: total knee replacement, bleeding from site due to removing bandage. kr3 Historical: - Allergies: 17:23 Ibuprofen; ll1 17:23 Oxycodone HCl; ll1 17:23 Risperdal; ll1 - PMHx: 17:23 Kidney stones; Myocardial infarction; psychiatric; spinal fusion; ll1 - PSHx: 17:23 heart stent/cath; ll1 - Immunization history:: Adult Immunizations up to date. - Social history:: Smoking status: Patient denies any tobacco usage or history of. Screenin:59 Abuse screen: Denies threats or abuse. Nutritional screening: No deficits noted. kr3 Tuberculosis screening: No symptoms or risk factors identified. Fall Risk Gait- Impaired (20 pts.). Total Galaviz Fall Scale indicates No Risk (0-24 pts). Assessment: 17:43 Reassessment: see triage note. kr3 Vital Signs: 17:32 BP 146 / 78; Pulse 99; Resp 18; Temp 99.3(TE); Pulse Ox 100% on R/A; ll1 ED Course: 17:20 Patient arrived in ED. ja2 17:20 Lucas Vidal DO is Attending Physician. ms3 17:23 Arm band placed on Patient placed in an exam room, on a stretcher. ll1 17:24 Bed in low position. Call light in reach. Side rails up X 1. kr3 17:34 Triage completed. ll1 17:43 Hilaria Elizabeth, RN is Primary Nurse. kr3 17:44 Dressings: Kerlix X 1; left knee non-adherent dressing x 2 left knee large luke bandage kr3 wrapped loosely around left knee. 18:00 No provider procedures requiring assistance completed. Patient did not have IV access kr3 during this emergency room visit. Administered Medications: No medications were administered Medication: 18:01 VIS not applicable for this client. kr3 Outcome: 17:39 Discharge ordered by . ms3 17:59 Patient left the ED. kr3 18:00 Discharged to home via wheelchair. kr3 18:00 Condition: stable 18:00 Discharge instructions given to patient, Instructed on discharge instructions, follow up and referral plans. Demonstrated understanding of instructions, follow-up care. Signatures: Nico Zimmerman, RN RN ll1 Lucas Vidal DO DO ms3 Carolina Ibanez ja2 Hilaria Elizabeth, ELBERT RN kr3
--- NOTE | 2022-08-05 17:40 | EDPHYS ---
Physician Documentation [facility] Name: Taj Perez Age: 72 yrs Sex: Male : 1950 Arrival Date: 08/05/2022 Time: 17:20 Bed 19 Private MD: ED Physician Lucas Vidal HPI: 08/05 17:34 This 72 yrs old Male presents to ER via Wheelchair with complaints of post op knee ms3 bleeding. 17:34 The patient presents with bleeding from incision site. The complaints affect the left ms3 knee. Context: The problem was sustained at home, resulted from removing bandage from total knee replacement on Tuesday at [place]. Onset: The symptoms/episode began/occurred today. Modifying factors: The symptoms are alleviated by nothing. the symptoms are aggravated by nothing. Associated signs and symptoms: Pertinent negatives fever, weakness. Treatment prior to arrival includes: Dressing. Severity of symptoms: At their worst the symptoms were mild, in the emergency department the symptoms are unchanged. Historical: - Allergies: 17:23 Ibuprofen; ll1 17:23 Oxycodone HCl; ll1 17:23 Risperdal; ll1 - PMHx: 17:23 Kidney stones; Myocardial infarction; psychiatric; spinal fusion; ll1 - PSHx: 17:23 heart stent/cath; ll1 - Immunization history:: Adult Immunizations up to date. - Social history:: Smoking status: Patient denies any tobacco usage or history of. ROS: 17:34 Constitutional: Negative for fever, and chills. Neck: Negative for injury, pain, and ms3 swelling, Cardiovascular: Negative for chest pain, and palpitations. Respiratory: Negative for shortness of breath, cough, wheezing, and pleuritic chest pain, Abdomen/GI: Negative for abdominal pain, nausea, vomiting, diarrhea, and constipation. 17:34 Skin: Positive for incision site with oozing left knee. 17:34 All other systems are negative. Exam: 17:34 Constitutional: This is a well developed, well nourished patient who is awake, alert, ms3 and in no acute distress. Head/Face: Normocephalic, atraumatic. Neck: Trachea midline, no cervical lymphadenopathy. Supple, full range of motion without nuchal rigidity, or vertebral point tenderness. No Meningismus. Chest/axilla: Normal chest wall appearance and motion. Nontender with no deformity. Cardiovascular: Regular rate and rhythm with a normal S1 and S2. No gallops, murmurs, or rubs. Normal PMI, no JVD. No pulse deficits. Respiratory: Lungs have equal breath sounds bilaterally, clear to auscultation and percussion. No rales, rhonchi or wheezes noted. No increased work of breathing, no retractions or nasal flaring. Abdomen/GI: Soft, non-tender, with normal bowel sounds. No distension or tympany. No guarding or rebound. No evidence of tenderness throughout. 17:34 Skin: Vertical incision on left knee with oozing, without dehiscence, surrounding erythema, or purulent drainage . Vital Signs: 17:32 BP 146 / 78; Pulse 99; Resp 18; Temp 99.3(TE); Pulse Ox 100% on R/A; ll1 MDM: 17:33 Patient medically screened. ms3 17:34 Data reviewed: vital signs, nurses notes, and as a result, I will discharge patient. ED ms3 course: Discussed physical exam findings with patient and his granddaughter. Dressing placed on left knee. Patient to follow-up with his orthopedic surgeon on Tuesday. Patient understands and agrees with plan. All questions were answered. Return precautions discussed include worsening symptoms, or any other concerns. Administered Medications: No medications were administered Disposition Summary: 08/05/22 17:39 Discharge Ordered Location: Home ms3 Condition: Stable ms3 Diagnosis - Post operative bleeding left knee ms3 Followup: ms3 - With: Private Physician - When: 2 - 3 days - Reason: Recheck today's complaints Discharge Instructions: - Discharge Summary Sheet ms3 - Incision Care, Adult ms3 Forms: - Medication Reconciliation Form ms3 - Thank You Letter ms3 - Antibiotic Education ms3 - Prescription Opioid Use ms3 Signatures: Nico Zimmerman, RN RN ll1 Lucas Vidal DO DO ms3
[2022-08-05 18:07] VITALS: BP 146/78; TEMP 99.3; O2SAT 100
== END 2022-08-05 17:59 | disposition home or self-care (01) ==
LOC: ER 17:13
DX: M96.830 Postprocedural hemorrhage of a musculoskeletal structure following a musculoskeletal system procedure (principal); Z88.5 Allergy status to narcotic agent; Z88.6 Allergy status to analgesic agent; Z88.8 Allergy status to other drugs, medicaments and biological substances
CPT/HCPCS: 99281

== ENCOUNTER 2022-08-23 21:10 | Emergency (ER) | payer OTHER ==
--- OUTSIDE RECORDS SUMMARY | 2022-08-23 21:13 | XMS REPORT | Continuity of Care Document ---
:[address] 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 Allergies, Adverse Reactions, Alerts Allergy Allergy Status Severity Reaction(s) Onset Inactive Treating Comm ents Source Name Type Date Date Clinician GABAPENT DRUG Active Unknown-Cmnt Un davina [facility] 04-20 ity of 00:00: [address] IBUPROFE DRUG Active Unknown-Cmnt Un davina N [facility] 04-20 ity of 00:00: [address] RISPERID DRUG Active EP Effects Univ ers ONE [facility] 04-20 ity of 00:00: [address] Medications This patient has no known medications. Procedures This patient has no known procedures. Encounters Start End Encounter Admission Attending Care Care Encounter Source Date/Time Date/Time Type Type Clinicians Facility Department ID 2020-06-25 2020-06-25 Outpatient [facility] [id number] Univers 00:00:00 00:00:00 JACKIE ity [facility] 2020-06-20 2020-06-20 Outpatient [facility] [id number] Univers 09:00:00 09:00:00 JACKIE doni [facility] 2020-05-02 2020-05-02 Outpatient Merced WANG, [facility] [id number] Univers 08:30:00 08:30:00 ELLIOTT danilo [facility] 2019-11-22 2019-11-22 Outpatient Harriet-Mbayo VFP VFP [phone] [facility] 10:39:00 10:39:00 _A_ [id number] Family Practic e 2019-11-22 2019-11-22 Outpatient Harriet-Mbayo VFP VFP [phone] [facility] 10:39:00 10:39:00 _A_ [id number] Family Practic e Results This patient has no known results.
[2022-08-23 22:43] LABS: Absolute Lymphocytes (CBC) 1.8 K/uL (0.7-4.9); Hematocrit 36.8 % (39.6-49.0); Lymphocytes % 20.4 % (15.3-44.8); MCV 90.2 fL (80-100); MPV 6.8 fL (7.6-11.3); RBC Red Blood Cell Count 4.08 M/uL (4.33-5.43)
[2022-08-23 22:49] LABS: ALT/SGPT 29 U/L (16-61); AST/SGOT 22 U/L (15-37); Albumin 3.4 g/dL (3.4-5.0); Alkaline Phosphatase 170 U/L (45-117); BUN Blood Urea Nitrogen 27 mg/dL (7-18); Bicarbonate 28 mmol/L (21-32); Bilirubin Total 0.3 mg/dL (0.2-1.0); Creatine Phosphokinase 187 U/L (39-308); Glomerular Filtration Rate 38 ml/min (=/>90); Glucose Level 101 mg/dL (74-106); Magnesium 1.9 mg/dL (1.6-2.4); NT PRO-BNP 134 pg/mL (<125); Potassium 3.9 mmol/L (3.5-5.1); Protein, Total 7.4 g/dL (6.4-8.2); Sodium Level 137 mmol/L (136-145); Troponin High Sensitivity 14.3 pg/mL (<58.9)
[2022-08-23 22:50] LABS: Bilirubin Direct < 0.1 mg/dL (0-0.2)
[2022-08-23 22:58] LABS: Protime INR 1.12
--- NOTE | 2022-08-23 23:04 | RAD REPORT ---
EXAM DESCRIPTION: US - Extrem Venous W Compress Steve - 08/23/2022 10:52 pm CLINICAL HISTORY: recent knee surgery, rule out dvt COMPARISON: None TECHNIQUE: Real-time sonographic evaluation of the lower extremity deep venous systems was performed using color Doppler, grayscale, and compression. FINDINGS: Bilateral lower extremities. Normal compressibility, flow augmentation, phasic flow and spontaneous flow is identified in both the left and right lower extremity deep venous systems. No intraluminal filling defects seen. IMPRESSION: No DVT in either lower extremity.
[2022-08-23 23:31] LABS: SARS-COV-2 RT PCR NEGATIVE (NEGATIVE)
[2022-08-23] MEDS ORDERED: METHYLPREDNISOLONE 125 MG INJ ONE (23:45)
--- NOTE | 2022-08-23 23:59 | EDPHYS ---
Physician Documentation [facility] Name: Taj Perez Age: 72 yrs Sex: Male : 1950 Arrival Date: 08/23/2022 Time: 21:16 Bed 13 Private MD: ED Physician Max Quezada HPI: 08/23 22:17 This 72 yrs old Male presents to ER via EMS with complaints of shortness of breath. rn 22:17 The patient has shortness of breath at rest, with light activity. Onset: The rn symptoms/episode began/occurred 1 week(s) ago. Duration: The symptoms are intermittent. The patient's shortness of breath is aggravated by exertion, light activity, supine position. Associated signs and symptoms: Pertinent negatives: chest pain, non-productive cough, productive cough, fever, hemoptysis. Severity of symptoms: At their worst the symptoms were moderate in the emergency department the symptoms are unchanged. The patient has experienced similar episodes in the past. The patient has been recently seen by a physician:. Pt reports 1 week of sob, worse with supine position and walking. No fever. + recent knee surgery. No hx of dvt. NO hemoptysis. Reports CHF and possible COPD. . Historical: - Allergies: 22:00 Ibuprofen; pf1 22:00 Oxycodone HCl; pf1 22:00 Risperdal; pf1 - PMHx: 22:00 Kidney stones; Myocardial infarction; spinal fusion; psychiatric; pf1 - PSHx: 22:00 heart stent/cath; bilateral knee replacement; pf1 - Immunization history:: Adult Immunizations unknown. - Family history:: not pertinent. - Social history:: Smoking status: unknown. - Hospitalizations: : No recent hospitalization is reported. ROS: 22:17 Constitutional: Negative for fever, chills, and weight loss, Eyes: Negative for injury, rn pain, redness, and discharge, Neck: Negative for injury, pain, and swelling, Cardiovascular: Negative for chest pain, palpitations Respiratory: + sob Abdomen/GI: Negative for abdominal pain, nausea, vomiting, diarrhea, and constipation, Back: Negative for injury and pain, MS/Extremity: Negative for injury and deformity, Skin: Negative for injury, rash, and discoloration, Neuro: Negative for headache, weakness, numbness, tingling, and seizure. Exam: 22:17 Constitutional: This is a well developed, well nourished patient who is awake, alert, rn and in no acute distress. Head/Face: Normocephalic, atraumatic. Eyes: Periorbital areas with no swelling, redness, or edema. Cardiovascular: Regular rate and rhythm. No pulse deficits. Respiratory: Clear bilateral breath sounds. No increased work of breathing, no retractions or nasal flaring. Abdomen/GI: Soft, non-tender Skin: Warm, dry MS/ Extremity: Pulses equal, no cyanosis. Neuro: Awake and alert, GCS 15 22:22 ECG was reviewed by the Attending Physician. rn Vital Signs: 21:25 BP 128 / 78; Pulse 74; Resp 18; Temp 98.6(O); Pulse Ox 99% on R/A; Weight 111.58 kg; pf1 Height 5 ft. 9 in. (175.26 cm); Pain 0/10; 22:30 BP 136 / 75; Pulse 69; Resp 18; Pulse Ox 99% ; Pain 0/10; pf1 23:30 BP 112 / 62; Pulse 78; Resp 18; Pulse Ox 98% ; Pain 0/10; pf1 08/24 00:30 BP 128 / 89; Pulse 84; Resp 18; Temp 98.2; Pulse Ox 99% on R/A; Pain 0/10; pf1 08/23 21:25 Body Mass Index 36.33 (111.58 kg, 175.26 cm) pf1 MDM: 08/23 21:16 Patient medically screened. rn 23:57 Differential diagnosis: Anemia Anxiety Reaction Bronchitis CHF exacerbation, Chronic rn Obstructive Pulmonary Disease Myocardial Infarction pneumonia, Pneumothorax pulmonary edema, reactive airway disease. Data reviewed: vital signs, nurses notes, lab test result(s), EKG, radiologic studies, doppler, plain films, and as a result, I will discharge patient. Counseling: I had a detailed discussion with the patient and/or guardian regarding: the historical points, exam findings, and any diagnostic results supporting the discharge/admit diagnosis, lab results, radiology results, the need for outpatient follow up, to return to the emergency department if symptoms worsen or persist or if there are any questions or concerns that arise at home. Response to treatment: the patient's symptoms have markedly improved after treatment, and as a result, I will discharge patient. Special discussion: I discussed with the patient/guardian in detail that at this point there is no indication for admission to the hospital. It is understood, however, that if the symptoms persist or worsen the patient needs to return immediately for re-evaluation. Based on the history and exam findings, there is no indication for further emergent testing or inpatient evaluation. I discussed with the patient/guardian the need to see the halal meat packer for further evaluation of the symptoms. 08/23 21:18 Order name: BMP; Complete Time: 22:52 12 21:18 Order name: Blood Culture Adult (2) 08/23 21:18 Order name: CBC with Diff; Complete Time: 22:52 12 21:18 Order name: CPK; Complete Time: :52 12 21:18 Order name: Hepatic Function; Complete Time: :52 12 21:18 Order name: Magnesium; Complete Time: 22:52 12 21:18 Order name: NT PRO-BNP; Complete Time: 22:52 12 21:18 Order name: PT-INR; Complete Time: 23:20 12 21:18 Order name: Ptt, Activated; Complete Time: 23:20 12 21:18 Order name: Troponin HS; Complete Time: 22:52 1212 21:18 Order name: XRAY CXR (1 view) 08/23 21:18 Order name: COVID-19/FLU A+B; Complete Time: 23:37 12 21:18 Order name: Extrem Venous W Compression Steve US; Complete Time: 23:20 12 21:18 Order name: EKG; Complete Time: 21:18 1212 21:18 Order name: Cardiac monitoring; Complete Time: 23:23 1212 21:18 Order name: EKG - Nurse/Tech; Complete Time: 22:22 1212 21:18 Order name: IV Saline Lock; Complete Time: 22:02 1212 21:18 Order name: Labs collected and sent; Complete Time: 22:23 1212 21:18 Order name: O2 Per Protocol; Complete Time: 22:02 1212 21:18 Order name: O2 Sat Monitoring; Complete Time: 22:02 rn EC:22 Rate is 69 beats/min. Rhythm is regular. QRS [place] is Normal. IA interval is normal. QRS rn interval is normal. QT interval is normal. No Q waves. T waves are Normal. No ST changes noted. Clinical impression: Normal ECG. Interpreted by me. Reviewed by me. Administered Medications: 23:45 Drug: SOLU-Medrol (methylPrednisoLONE) 125 mg Route: IVP; Site: right antecubital; pf1 08/24 00:20 Follow up: Response: No adverse reaction pf1 00:40 Follow up: Response: No adverse reaction; Marked relief of symptoms pf1 00:20 Drug: Xopenex (levalbuterol) (3) 1.25 mg Route: Inhalation; pf1 01:00 Follow up: Response: Marked relief of symptoms pf1 Disposition Summary: 08/23/22 23:58 Discharge Ordered Location: Home rn Problem: an acute exacerbation rn Symptoms: have improved rn Condition: Stable rn Diagnosis - Dyspnea, unspecified rn - COPD/ Chronic obstructive pulmonary disease with (acute) exacerbation rn Followup: rn - With: Private Physician - When: 2 - 3 days - Reason: Recheck today's complaints, Re-evaluation by your physician Discharge Instructions: - Discharge Summary Sheet rn - Shortness of Breath, Adult rn - Chronic Obstructive Pulmonary Disease Exacerbation rn Forms: - Medication Reconciliation Form rn - Thank You Letter rn - 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 EDNH EDMS
--- NOTE | 2022-08-23 23:59 | ER ---
Nurse's Notes [facility] Name: Taj Perez Age: 72 yrs Sex: Male : 1950 Arrival Date: 08/23/2022 Time: 21:16 Bed 13 Private MD: Diagnosis: Dyspnea, unspecified;COPD/ Chronic obstructive pulmonary disease with (acute) exacerbation Presentation: 08/23 21:25 Chief complaint: Patient states: Intermittent SOB since 1 week ago on Tuesday. Patient pf1 stated had left knee replacement on July. Patient stated feels SOB when laying flat, denies any SOB while sitting upright. Patient denies any pain. EMS states: Patient arrived per EMS. 21:25 Coronavirus screen: Client denies travel out of the [place] in the last 14 days. At this pf1 time, the client does not indicate any symptoms associated with coronavirus-19. Ebola Screen: Patient negative for fever greater than or equal to 101.5 degrees Fahrenheit, and additional compatible Ebola Virus Disease symptoms. Initial Sepsis Screen: Does the patient meet any 2 criteria? No. Patient's initial sepsis screen is negative. Does the patient have a suspected source of infection? No. Patient's initial sepsis screen is negative. Risk Assessment: Do you want to hurt yourself or someone else? Patient reports no desire to harm self or others. Onset of symptoms was August 15, 2022. 21:25 Method Of Arrival: EMS: [facility] pf1 21:25 Acuity: TRISH 3 pf1 Triage Assessment: 21:25 General: Appears in no apparent distress. comfortable, well groomed, well developed, pf1 Behavior is calm, cooperative, appropriate for age, quiet. 21:25 Pain: Denies pain. pf1 Historical: - Allergies: 22:00 Ibuprofen; pf1 22:00 Oxycodone HCl; pf1 22:00 Risperdal; pf1 - PMHx: 22:00 Kidney stones; Myocardial infarction; spinal fusion; psychiatric; pf1 - PSHx: 22:00 heart stent/cath; bilateral knee replacement; pf1 - Immunization history:: Adult Immunizations unknown. - Family history:: not pertinent. - Social history:: Smoking status: unknown. - Hospitalizations: : No recent hospitalization is reported. Screenin:00 Abuse screen: Denies threats or abuse. Nutritional screening: No deficits noted. pf1 Tuberculosis screening: No symptoms or risk factors identified. 22:00 Fall Risk No fall in past 12 months (0 pts). IV access (20 points). pf1 Assessment: 23:37 General: see triage assessment. pf1 Vital Signs: 21:25 BP 128 / 78; Pulse 74; Resp 18; Temp 98.6(O); Pulse Ox 99% on R/A; Weight 111.58 kg; pf1 Height 5 ft. 9 in. (175.26 cm); Pain 0/10; 22:30 BP 136 / 75; Pulse 69; Resp 18; Pulse Ox 99% ; Pain 0/10; pf1 23:30 BP 112 / 62; Pulse 78; Resp 18; Pulse Ox 98% ; Pain 0/10; pf1 08/24 00:30 BP 128 / 89; Pulse 84; Resp 18; Temp 98.2; Pulse Ox 99% on R/A; Pain 0/10; pf1 08/23 21:25 Body Mass Index 36.33 (111.58 kg, 175.26 cm) pf1 ED Course: 08/23 21:16 Patient arrived in ED. rn 21:16 Max Quezada MD is Attending Physician. rn 21:25 No provider procedures requiring assistance completed. Maintain EMS IV. Dressing pf1 intact. Good blood return noted. Site clean \T\ dry. Gauge \T\ site: 20 gauge RAC. 21:25 Arm band placed on right wrist. pf1 21:25 Patient has correct armband on for positive identification. Placed in gown. Bed in low pf1 position. Call light in reach. 21:32 Diya clarke, ELBERT is Primary Nurse. pf1 21:38 Triage completed. pf1 22:54 Extrem Venous W Compression Steve US In Process Unspecified. EDMS 22:57 XRAY CXR (1 view) In Process Unspecified. EDMS 23:23 COVID-19/FLU A+B Sent. pf1 23:57 Blood Culture Adult (2) Sent. pf1 08/24 01:00 IV discontinued, intact, bleeding controlled, No redness/swelling at site. Pressure pf1 dressing applied. Administered Medications: 08/23 23:45 Drug: SOLU-Medrol (methylPrednisoLONE) 125 mg Route: IVP; Site: right antecubital; pf1 08/24 00:20 Follow up: Response: No adverse reaction pf1 00:40 Follow up: Response: No adverse reaction; Marked relief of symptoms pf1 00:20 Drug: Xopenex (levalbuterol) (3) 1.25 mg Route: Inhalation; pf1 01:00 Follow up: Response: Marked relief of symptoms pf1 Medication: 08/23 21:30 VIS not applicable for this client. pf1 Outcome: 23:58 Discharge ordered by . rn 08/24 00:59 Discharged to home ambulatory, with family. pf1 Condition: improved Discharge instructions given to patient, family, Instructed on discharge instructions, follow up and referral plans. medication usage, Demonstrated understanding of instructions, follow-up care, medications, Prescriptions given X 2. 01:00 Patient left the ED. pf1 Signatures: Dispatcher [employer] EDMS Max Quezada MD MD rn finley, Pamala, RN RN pf1 Corrections: (The following items were deleted from the chart) 08/23 23:25 21:25 Chief complaint: Patient states: Intermittent SOB since 1 week ago on Tuesday. pf1 Patient stated had left knee replacement 1 week ago. Patient stated feels SOB when laying flat, denies any SOB while sitting upright. Patient denies any pain. EMS states: Patient arrived per EMS pf1
[2022-08-24] MEDS ORDERED: LEVALBUTEROL 1.25 MG/3 ML NEB ONE (00:16)
[2022-08-24 01:09] VITALS: TEMP 98.6
[2022-08-24 01:12] VITALS: BP 112/62; O2SAT 98
--- NOTE | 2022-08-24 14:35 | EKG ---
Test Date: 2022-08-23 Test Time: 22:18:50 Dean For [employer] Affairs: ERROL MEASUREMENT RESULTS: Intervals: Rate: 69 MA: 168 QRSD: 86 QT: 368 QTc: 394 [place]: P: 62 MA: 168 QRS: 63 T: 44 INTERPRETIVE STATEMENTS: Normal sinus rhythm Normal ECG Compared to ECG 09/25/2021 15:56:08 Sinus tachycardia no longer present Electronically Signed On 08-24-22 14:34:07 SCREW MACHINE TENDER by Cristian Zacarias
--- NOTE | 2022-08-24 16:44 | RAD REPORT ---
EXAM DESCRIPTION: RAD - Chest Single View - 08/23/2022 10:56 pm CLINICAL HISTORY: 72-year-old male with dyspnea. TECHNIQUE: Single view, AP portable chest was obtained. COMPARISON: None. FINDINGS: Unremarkable cardiac and mediastinal silhouette. Heart size is normal. Lungs are clear without focal opacity, pneumothorax or pleural effusions. Elevation of the right he midiaphragm. The visualized bones are within normal limits. IMPRESSION: No acute cardiopulmonary abnormalities. Electronically signed by: Amairani Belcher MD 08/23/2022 11:18 PM DRAFTER PLUMBING Due to temporary technical issues with the PACS/Fluency reporting system, reports are being signed by the in house radiologists without review as a courtesy to insure prompt reporting. The interpreting radiologist is fully responsible for the content of the report.
== END 2022-08-24 01:00 | disposition home or self-care (01) ==
LOC: ER 21:10
DX: J44.1 Chronic obstructive pulmonary disease with (acute) exacerbation (principal); Z20.822 Contact with and (suspected) exposure to COVID-19; Z88.5 Allergy status to narcotic agent; Z88.6 Allergy status to analgesic agent; Z88.8 Allergy status to other drugs, medicaments and biological substances; Z96.653 Presence of artificial knee joint, bilateral
CPT/HCPCS: 93005; 87040 ×2; 85025; 80048; 36415; 83735; 82550; 85610; 80076; 85730; 84484; 83880; 0240U; 71045; 93970; J7614; J2930; 96374; 99284

== ENCOUNTER 2022-08-24 14:44 | Emergency (ER) | payer OTHER ==
--- OUTSIDE RECORDS SUMMARY | 2022-08-24 15:04 | XMS REPORT | Continuity of Care Document ---
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 Allergies, Adverse Reactions, Alerts Allergy Allergy Status Severity Reaction(s) Onset Inactive Treating Comm ents Source Name Type Date Date Clinician GABAPENT DRUG Active Unknown-Cmnt Un davina IN [facility] 04-20 ity of 00:00: [address] IBUPROFE DRUG Active Unknown-Cmnt Un davina N [facility] 04-20 ity of 00:00: [address] RISPERID DRUG Active EP Effects Univ ers ONE [facility] 04-20 ity of 00:00: [address] Medications This patient has no known medications. Procedures This patient has no known procedures. Encounters Start End Encounter Admission Attending Care Care Encounter Source Date/Time Date/Time Type Type Clinicians Facility Department ID 2020-06-25 2020-06-25 Outpatient [facility] [id number] Univers 00:00:00 00:00:00 JACKIE ity [facility] 2020-06-20 2020-06-20 Outpatient [facility] [id number] Univers 09:00:00 09:00:00 JACKIE doni [facility] 2020-05-02 2020-05-02 Outpatient [place] WANG, [facility] [id number] Univers 08:30:00 08:30:00 ELLIOTT danilo [facility] 2019-11-22 2019-11-22 Outpatient Harriet-Mbayo [facility] [id number] [facility] 10:39:00 10:39:00 _A_ [id number] 2019-11-22 2019-11-22 Outpatient Harriet-Mbayo VFP [facility]FP [id number] [facility] 10:39:00 10:39:00 _A_ [id number] Family Practic e Results This patient has no known results.
[2022-08-24 15:19] LABS: Absolute Lymphocytes (CBC) 0.7 K/uL (0.7-4.9); Hematocrit 35.2 % (39.6-49.0); Lymphocytes % 6.6 % (15.3-44.8); MPV 6.9 fL (7.6-11.3); RBC Red Blood Cell Count 3.91 M/uL (4.33-5.43)
[2022-08-24 15:33] LABS: Potassium 4.7 mmol/L (3.5-5.1); Troponin High Sensitivity 13.5 pg/mL (<58.9)
--- NOTE | 2022-08-24 16:02 | RAD REPORT ---
EXAM DESCRIPTION: RAD - Chest Single View - 08/24/2022 3:47 pm CLINICAL HISTORY: DYSPNEA Chest pain. COMPARISON: Chest Single View dated 08/23/2022; Chest Single View dated 09/25/2021; Chest Single View dated 05/19/2021 FINDINGS: Portable technique limits examination quality. Mild bilateral pulmonary edema versus viral infiltrate pattern. The heart is mildly prominent. No dis placed fractures. IMPRESSION: Mild CHF suspected. Underlying viral infiltrate can cause a similar appearance.
--- NOTE | 2022-08-24 16:42 | RAD REPORT ---
EXAM DESCRIPTION: CT - Chest For Pe Angio - 08/24/2022 4:33 pm CLINICAL HISTORY: Chest pain. shortness of breath COMPARISON: No comparisons TECHNIQUE: CT angiogram of the pulmonary arteries was performed with MIP. All CT scans are performed using dose optimization technique as appropriate and may include automated exposure control or mA/KV adjustment according to patient size. FINDINGS: No evidence of pulmonary thromboembolism. No acute aortic finding demonstrated. Subtle thickening of the interstitial markings is seen with mild atelectasis in both lung bases. No f ocal infiltrate typical of pneumonia evident. No significant pericardial or pleural fluid. No concerning bony finding. IMPRESSION: No evidence of pulmonary thromboembolism.
--- NOTE | 2022-08-24 17:04 | ER ---
Nurse's Notes [facility] Name: Taj Perez Age: 72 yrs Sex: Male : 1950 Arrival Date: 08/24/2022 Time: 14:46 Bed 2 Private MD: Diagnosis: Shortness of breath;Chronic kidney disease, unspecified;Anemia, unspecified Presentation: 08/24 14:47 Chief complaint: EMS states: pt complaining of SOB since yesterday. Pt states "I was mb9 here yesterday for the same thing and only received a breathing treatment that didn't help." Pt also complaining of pain in left knee. Pt states he had a left knee replacement at the [place] two weeks ago. Coronavirus screen: Vaccine status: Patient reports receiving the 2nd dose of the covid vaccine. Ebola Screen: No symptoms or risks identified at this time. Initial Sepsis Screen: Does the patient meet any 2 criteria? No. Patient's initial sepsis screen is negative. Risk Assessment: Do you want to hurt yourself or someone else? Patient reports no desire to harm self or others. Onset of symptoms was August 23, 2022. 14:47 Method Of Arrival: EMS: [facility] mb9 14:47 Acuity: TRISH 3 mb9 17:02 Initial Sepsis Screen: Does the patient have a suspected source of infection? No. mb9 Patient's initial sepsis screen is negative. Historical: - Allergies: 14:49 Ibuprofen; mb9 14:49 Oxycodone HCl; mb9 14:49 Risperdal; mb9 - PMHx: 14:49 Kidney stones; Myocardial infarction; psychiatric; spinal fusion; Chronic obstructive mb9 lung disease; Hypertensive disorder; Congestive heart failure; - PSHx: 14:49 bilateral knee replacement; heart stent/cath; mb9 - Immunization history:: Adult Immunizations up to date. - Social history:: Smoking status: Patient/guardian denies using tobacco, the patient reports quitting approximately 19 years ago. Screenin:02 Abuse screen: Denies threats or abuse. Nutritional screening: No deficits noted. mb9 Tuberculosis screening: No symptoms or risk factors identified. Fall Risk No fall in past 12 months (0 pts). Assessment: 14:58 General: Appears in no apparent distress. comfortable, Behavior is calm, cooperative, mb9 appropriate for age. Pain: Complains of pain in left knee Pain does not radiate. Pain currently is 5 out of 10 on a pain scale. Quality of pain is described as throbbing, Aggravated by increased activity, repositioning, weight bearing. Neuro: Orr Agitation-Sedation Scale (RASS): 0 - Alert and Calm Level of Consciousness is awake, alert, obeys commands, Oriented to person, place, time, situation, Appropriate for age. Cardiovascular: Heart tones S1 S2 present Rhythm is regular. Respiratory: Reports shortness of breath at rest on exertion since yesterday Airway is patent Respiratory effort is even, unlabored, Respiratory pattern is regular, symmetrical, Breath sounds are clear bilaterally. GI: Abdomen is round non-distended, Bowel sounds present X 4 quads. Abd is soft and non tender X 4 quads. Patient currently denies diarrhea, nausea, pain. : No signs and/or symptoms were reported regarding the genitourinary system. EENT: No signs and/or symptoms were reported regarding the EENT system. Derm: Skin is pink, warm \\T\\ dry. Incision noted to the left knee. Musculoskeletal: Range of motion: intact in all extremities. 14:58 Cardiovascular: Reports "I had a sharp pain in my chest last night. I don't currently mb9 have it". 15:44 General: Appears in no apparent distress. comfortable, Behavior is calm, cooperative, mb9 appropriate for age. Neuro: Level of Consciousness is awake, alert, obeys commands, Oriented to person, place, time, situation, Appropriate for age. Cardiovascular: Rhythm is regular. Respiratory: Airway is patent Respiratory effort is even, unlabored, Respiratory pattern is regular, symmetrical, Denies shortness of breath at rest, on exertion. Derm: Skin is pink, warm \\T\\ dry. 15:44 Cardiovascular: Denies chest pain. mb9 17:01 Pain:. Neuro: Level of Consciousness is awake, alert, obeys commands. Cardiovascular: mb9 Rhythm is regular. Cardiovascular: Denies chest pain. Respiratory: Denies shortness of breath. Derm: Skin is pink, warm \\T\\ dry. Vital Signs: 14:47 BP 128 / 87; Pulse 84; Resp 18; Temp 98.2(T); Pulse Ox 99% on R/A; Weight 124.28 kg; mb9 Height 5 ft. 8 in. (172.72 cm); Pain 5/10; 15:01 BP 107 / 65; Pulse 83; Resp 18; Pulse Ox 95% on R/A; mb9 15:55 BP 103 / 62; Pulse 76; Resp 18; Pulse Ox 96% on R/A; mb9 17:01 BP 105 / 69; Pulse 78; Resp 18; Pulse Ox 100% on R/A; mb9 14:47 Body Mass Index 41.66 (124.28 kg, 172.72 cm) mb9 ED Course: 14:46 Patient arrived in ED. iw 14:46 Renu Choi, RN is Primary Nurse. mb9 14:49 Triage completed. mb9 14:53 Arm band placed on. mb9 14:53 Placed in gown. Bed in low position. Call light in reach. Side rails up X 1. mb9 14:55 EKG done, by ED staff, reviewed by Lucas Vidal DO. mb9 14:55 Maintain EMS IV. Dressing intact. Good blood return noted. Site clean \\T\\ dry. Gauge \\T\\ mb 9 site: 18 gauge in right AC. 14:56 Lucas Vidal DO is Attending Physician. ms3 15:07 Basic Metabolic Panel Sent. mb9 15:07 CBC with Diff Sent. mb9 15:07 NT PRO-BNP Sent. mb9 15:07 Troponin HS Sent. mb9 15:48 XRAY Chest (1 view) In Process Unspecified. EDMS 16:35 CT Chest For PE Angio In Process Unspecified. EDMS 17:01 Arnaldo De Jesus MD is Referral Physician. ms3 17:02 No provider procedures requiring assistance completed. mb9 17:15 IV discontinued, intact, bleeding controlled, No redness/swelling at site. Pressure mb9 dressing applied. Administered Medications: No medications were administered Medication: 15:07 VIS not applicable for this client. mb9 Outcome: 17:04 Discharge ordered by . ms3 17:15 Discharged to home via wheelchair. mb9 17:15 Condition: stable 17:15 Discharge instructions given to patient, Instructed on discharge instructions, follow up and referral plans. Demonstrated understanding of instructions, follow-up care. 17:17 Patient left the ED. ss Signatures: Dispatcher [employer] EDRashida Skelton, ELBERT BOSWELL Smirch, SugeyELBERT lopez RN, Marcus, DO DO ms3 Renu Choi RN RN mb9 Corrections: (The following items were deleted from the chart) 14:53 14:49 PMHx: Chronic obstructive lung disease; mb9 mb9 14:57 14:47 Chief complaint: EMS states: pt complaining of SOB since yesterday. Pt states "I mb9 was here yesterday for the same thing and only received a breathing treatment that didn't help." mb9 15:55 15:44 Respiratory: Airway is patent Respiratory effort is even, unlabored, Respiratory mb9 pattern is regular, symmetrical, mb9
--- NOTE | 2022-08-24 17:04 | EDPHYS ---
Physician Documentation [facility] Name: Taj Perez Age: 72 yrs Sex: Male : 1950 Arrival Date: 08/24/2022 Time: 14:46 Bed 2 Private MD: ED Physician Lucas Vidal HPI: 08/24 15:12 This 72 yrs old Male presents to ER via EMS with complaints of Shortness Of Breath. ms3 15:12 The patient has shortness of breath at rest. Onset: The symptoms/episode began/occurred ms3 4 hour(s) ago. Duration: The symptoms are continuous, but are markedly better than the original presentation. The patient's shortness of breath is aggravated by nothing, is alleviated by nothing. Associated signs and symptoms: Pertinent negatives: chest pain. Severity of symptoms: At their worst the symptoms were moderate in the emergency department the symptoms are unchanged Pain is currently a 0 / 10. Historical: - Allergies: 14:49 Ibuprofen; mb9 14:49 Oxycodone HCl; mb9 14:49 Risperdal; mb9 - PMHx: 14:49 Kidney stones; Myocardial infarction; psychiatric; spinal fusion; Chronic obstructive mb9 lung disease; Hypertensive disorder; Congestive heart failure; - PSHx: 14:49 bilateral knee replacement; heart stent/cath; mb9 - Immunization history:: Adult Immunizations up to date. - Social history:: Smoking status: Patient/guardian denies using tobacco, the patient reports quitting approximately 19 years ago. ROS: 15:12 Constitutional: Negative for fever, and chills. Neck: Negative for injury, pain, and ms3 swelling, Cardiovascular: Negative for chest pain, and palpitations. 15:12 Abdomen/GI: Negative for abdominal pain, nausea, vomiting, diarrhea, and constipation, MS/Extremity: Negative for injury and deformity, Skin: Negative for injury, rash, and discoloration. 15:12 Respiratory: Positive for shortness of breath. 15:12 All other systems are negative. Exam: 15:12 Constitutional: This is a well developed, well nourished patient who is awake, alert, ms3 and in no acute distress. Head/Face: Normocephalic, atraumatic. Neck: Trachea midline, no cervical lymphadenopathy. Supple, full range of motion without nuchal rigidity, or vertebral point tenderness. No Meningismus. Chest/axilla: Normal chest wall appearance and motion. Nontender with no deformity. Cardiovascular: Regular rate and rhythm with a normal S1 and S2. No gallops, murmurs, or rubs. Normal PMI, no JVD. No pulse deficits. 15:12 Respiratory: Lungs have equal breath sounds bilaterally, clear to auscultation and percussion. No rales, rhonchi or wheezes noted. No increased work of breathing, no retractions or nasal flaring. Abdomen/GI: Soft, non-tender, with normal bowel sounds. No distension or tympany. No guarding or rebound. No evidence of tenderness throughout. Skin: Warm, dry with normal turgor. Normal color with no rashes, no lesions, and no evidence of cellulitis. MS/ Extremity: Pulses equal, no cyanosis. Neurovascular intact. Full, normal range of motion. 15:12 Respiratory: 15:31 ECG was reviewed by the Attending Physician. ms3 Vital Signs: 14:47 BP 128 / 87; Pulse 84; Resp 18; Temp 98.2(T); Pulse Ox 99% on R/A; Weight 124.28 kg; mb9 Height 5 ft. 8 in. (172.72 cm); Pain 5/10; 15:01 BP 107 / 65; Pulse 83; Resp 18; Pulse Ox 95% on R/A; mb9 15:55 BP 103 / 62; Pulse 76; Resp 18; Pulse Ox 96% on R/A; mb9 17:01 BP 105 / 69; Pulse 78; Resp 18; Pulse Ox 100% on R/A; mb9 14:47 Body Mass Index 41.66 (124.28 kg, 172.72 cm) mb9 MDM: 15:01 Patient medically screened. ms3 15:12 Differential diagnosis: CHF exacerbation, Chronic Obstructive Pulmonary Disease ms3 Myocardial Infarction. 17:04 Data reviewed: vital signs, nurses notes, lab test result(s), and as a result, I will ms3 discharge patient. Data interpreted: teletypesetter monitor: rate is 80 beats/min, rhythm is normal sinus rhythm, regular, with no ectopy, Interpretation: normal rate, normal rhythm. Counseling: I had a detailed discussion with the patient and/or guardian regarding: the historical points, exam findings, and any diagnostic results supporting the discharge/admit diagnosis, lab results, radiology results, the need for outpatient follow up, to return to the emergency department if symptoms worsen or persist or if there are any questions or concerns that arise at home. ED course: Discussed labs and comparison with last night's labs with patient and his . Patient to follow-up with cardiology tomorrow as he has scheduled. Patient understands and agrees with plan. All questions were answered. Return precautions discussed to include worsening symptoms, shortness of breath, nausea, diaphoresis, chest pain, any other concerns. On reevaluation patient is asymptomatic, in no apparent distress, nontoxic-appearing, speaking full sentences. Discussed IV hydration after contrast with patient and patient states he prefers to be discharged and will drink fluids at home. 08/24 15:01 Order name: Basic Metabolic Panel; Complete Time: 16:50 ms3 08/24 15:01 Order name: CBC with Diff; Complete Time: 16:50 ms3 08/24 15:01 Order name: NT PRO-BNP; Complete Time: 16:50 ms3 08/24 15:01 Order name: Troponin HS; Complete Time: 16:50 ms3 08/24 15:01 Order name: XRAY Chest (1 view); Complete Time: 16:50 ms3 08/24 15:10 Order name: CT Chest For PE Angio; Complete Time: 16:50 ms3 08/24 15:01 Order name: Cardiac monitoring; Complete Time: 15:03 ms3 08/24 15:01 Order name: EKG - Nurse/Tech; Complete Time: 15:03 ms3 08/24 15:01 Order name: IV Saline Lock; Complete Time: 15:03 ms3 08/24 15:01 Order name: Labs collected and sent; Complete Time: 15:07 ms3 08/24 15:01 Order name: O2 Per Protocol; Complete Time: 15:03 ms3 08/24 15:01 Order name: O2 Sat Monitoring; Complete Time: 15:03 ms3 EC:31 Rate is 81 beats/min. Rhythm is regular. QRS [place] is Normal. [place] interval is normal. QRS ms3 interval is normal. Clinical impression: Normal ECG. Interpreted by me. Reviewed by me. Administered Medications: No medications were administered Disposition Summary: 08/24/22 17:04 Discharge Ordered Location: Home ms3 Condition: Stable ms3 Diagnosis - Shortness of breath ms3 - Chronic kidney disease, unspecified ms3 - Anemia, unspecified ms3 Followup: ms3 - With: Arnaldo De Jesus MD - When: 1 - 2 days - Reason: Recheck today's complaints Discharge Instructions: - Discharge Summary Sheet ms3 - Anemia ms3 - Shortness of Breath, Adult ms3 - Chronic Kidney Disease, Adult ms3 Forms: - Medication Reconciliation Form ms3 - Thank You Letter ms3 - Antibiotic Education ms3 - Prescription Opioid Use ms3 Signatures: Dispatcher [employer] EDLucas Martinez, DO DO ms3 Renu Choi RN RN mb9 Corrections: (The following items were deleted from the chart) 14:53 14:49 PMHx: Chronic obstructive lung disease; [place] mb9
[2022-08-24 17:21] VITALS: TEMP 98.2
[2022-08-24 17:24] VITALS: BP 105/69; O2SAT 100
--- NOTE | 2022-08-26 08:08 | EKG ---
Test Date: 2022-08-24 Test Time: 14:49:02 Patient Registration Clerk: TERESSA MEASUREMENT RESULTS: Intervals: Rate: 81 NH: 162 QRSD: 76 QT: 342 QTc: 397 [place]: P: 49 NH: 162 QRS: 40 T: 40 INTERPRETIVE STATEMENTS: Normal sinus rhythm Normal ECG Compared to ECG 08/23/2022 22:18:50 No significant changes Electronically Signed On 08-26-22 08:02:26 MYCOLOGY TEACHER by Arnaldo De Jesus
== END 2022-08-24 17:17 | disposition home or self-care (01) ==
LOC: ER 14:44
DX: R06.02 Shortness of breath (principal); I13.0 Hypertensive heart and chronic kidney disease with heart failure and stage 1 through stage 4 chronic kidney disease, or unspecified chronic kidney disease; D63.1 Anemia in chronic kidney disease; N18.9 Chronic kidney disease, unspecified; I50.9 Heart failure, unspecified; Z88.5 Allergy status to narcotic agent; Z88.6 Allergy status to analgesic agent; Z88.8 Allergy status to other drugs, medicaments and biological substances; Z96.653 Presence of artificial knee joint, bilateral
CPT/HCPCS: 93005; 85025; 80048; 36415; 84484; 83880; 71275; 71045; 99284; Q9967

== ENCOUNTER 2022-08-28 20:01 | Observation (INO) | payer OTHER ==
--- OUTSIDE RECORDS SUMMARY | 2022-08-28 20:04 | XMS REPORT | Continuity of Care Document ---
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 Allergies, Adverse Reactions, Alerts Allergy Allergy Status Severity Reaction(s) Onset Inactive Treating Comm ents Source Name Type Date Date Clinician GABAPENT DRUG Active Unknown-Cmnt Un davina IN [facility]GR[facility]I 04-20 ity of 00:00: [address] IBUPROFE DRUG Active Unknown-Cmnt Un davina N [facility] 04-20 ity of 00:00: [address] RISPERID DRUG Active EP Effects Univ ers ONE [facility] 04-20 ity of 00:00: [address] Medications This patient has no known medications. Procedures This patient has no known procedures. Encounters Start End Encounter Admission Attending Care Care Encounter Source Date/Time Date/Time Type Type Clinicians Facility Department ID 2020-06-25 2020-06-25 Outpatient [facility] [id number] Univers 00:00:00 00:00:00 JACKIE ity [facility] 2020-06-20 2020-06-20 Outpatient [facility] [id number] Univers 09:00:00 09:00:00 JACKIE doni [facility] 2020-05-02 2020-05-02 Outpatient Merced WANG, [facility] [id number] Univers 08:30:00 08:30:00 ELLIOTT danilo [facility] 2019-11-22 2019-11-22 Outpatient Harriet-Mbayo VFP VFP [id number] [facility] 10:39:00 10:39:00 _A_ [id number] Family Practic e 2019-11-22 2019-11-22 Outpatient Harriet-Mbayo VFP VFP [id number] [facility] 10:39:00 10:39:00 _A_ [id number] Family Practic e Results This patient has no known results.
[2022-08-28 20:56] LABS: Absolute Lymphocytes (CBC) 1.6 K/uL (0.7-4.9); Hematocrit 35.8 % (39.6-49.0); Lymphocytes % 17.3 % (15.3-44.8); MCV 89.9 fL (80-100); MPV 6.8 fL (7.6-11.3); RBC Red Blood Cell Count 3.98 M/uL (4.33-5.43)
[2022-08-28 20:58] LABS: Protime INR 1.1
[2022-08-28] MEDS ORDERED: NA CHLORIDE 0.9% 50 ML IV ONE (21:10)
[2022-08-28] MEDS ORDERED: NA CHLORIDE 0.9% 1,000 ML ONE (21:10)
[2022-08-28] MEDS ORDERED: CEFTRIAXONE 1000 MG/VIAL ONE (21:10)
[2022-08-28 21:14] LABS: ALT/SGPT 29 U/L (16-61); AST/SGOT 18 U/L (15-37); Albumin 3.3 g/dL (3.4-5.0); Alkaline Phosphatase 173 U/L (45-117); BUN Blood Urea Nitrogen 23 mg/dL (7-18); Bicarbonate 27 mmol/L (21-32); Bilirubin Direct < 0.1 mg/dL (0-0.2); Bilirubin Total 0.4 mg/dL (0.2-1.0); Glomerular Filtration Rate 34 ml/min (=/>90); Glucose Level 131 mg/dL (74-106); Lipase 60 U/L (73-393); Magnesium 1.6 mg/dL (1.6-2.4); NT PRO-BNP 199 pg/mL (<125); Potassium 3.7 mmol/L (3.5-5.1); Protein, Total 6.8 g/dL (6.4-8.2); Sodium Level 140 mmol/L (136-145); Troponin High Sensitivity 19.3 pg/mL (<58.9)
[2022-08-28 21:28] LABS: SARS-COV-2 RT PCR NEGATIVE (NEGATIVE)
--- NOTE | 2022-08-28 22:06 | EDPHYS ---
Physician Documentation [facility] Name: Taj Perez Age: 72 yrs Sex: Male : 1950 Arrival Date: 08/28/2022 Time: 20:06 Bed 18 Private MD: ED Physician Berhane Gonzalez HPI: 08/28 20:53 This 72 yrs old Male presents to ER via EMS with complaints of Shortness Of wild Breath. 20:53 The patient has shortness of breath at rest, with light activity. Onset: The wild symptoms/episode began/occurred just prior to arrival. Duration: The symptoms are intermittent, with no pattern. The patient's shortness of breath has no apparent modifying factors. Associated signs and symptoms: The patient has no apparent associated signs or symptoms. Severity of symptoms: At their worst the symptoms were mild in the emergency department the symptoms are unchanged. The patient has not experienced similar symptoms in the past. Historical: - Allergies: 20:32 Ibuprofen; kb3 20:32 Oxycodone HCl; kb3 20:32 Risperdal; kb3 - PMHx: 20:32 Chronic obstructive lung disease; Congestive heart failure; Hypertensive disorder; kb3 Kidney stones; Myocardial infarction; psychiatric; spinal fusion; - PSHx: 20:32 bilateral knee replacement; heart stent/cath; kb3 - Immunization history:: Adult Immunizations up to date, Client reports receiving the 2nd dose of the Covid vaccine. - Social history:: Smoking status: Patient denies any tobacco usage or history of. ROS: 20:54 Constitutional: Negative for fever, chills, and weight loss, Eyes: Negative for injury, wild pain, redness, and discharge, ENT: Negative for injury, pain, and discharge, Neck: Negative for injury, pain, and swelling, Cardiovascular: Negative for chest pain, palpitations, and edema, Abdomen/GI: Negative for abdominal pain, nausea, vomiting, diarrhea, and constipation, Back: Negative for injury and pain, : Negative for injury, bleeding, discharge, and swelling, MS/Extremity: Negative for injury and deformity, Skin: Negative for injury, rash, and discoloration, Neuro: Negative for headache, weakness, numbness, tingling, and seizure, Psych: Negative for depression, anxiety, suicide ideation, homicidal ideation, and hallucinations, Allergy/Immunology: Negative for hives, rash, and allergies, Endocrine: Negative for neck swelling, polydipsia, polyuria, polyphagia, and marked weight changes, Hematologic/Lymphatic: Negative for swollen nodes, abnormal bleeding, and unusual bruising. 20:54 Respiratory: Positive for shortness of breath. Exam: 20:54 Constitutional: This is a well developed, well nourished patient who is awake, alert, wild and in no acute distress. Head/Face: Normocephalic, atraumatic. Eyes: Pupils equal round and reactive to light, extra-ocular motions intact. Lids and lashes normal. Conjunctiva and sclera are non-icteric and not injected. Cornea within normal limits. Periorbital areas with no swelling, redness, or edema. ENT: Nares patent. No nasal discharge, no septal abnormalities noted. Tympanic membranes are normal and external auditory canals are clear. Oropharynx with no redness, swelling, or masses, exudates, or evidence of obstruction, uvula midline. Mucous membranes moist. Neck: Trachea midline, no thyromegaly or masses palpated, and no cervical lymphadenopathy. Supple, full range of motion without nuchal rigidity, or vertebral point tenderness. No Meningismus. Chest/axilla: Normal chest wall appearance and motion. Nontender with no deformity. No lesions are appreciated. Cardiovascular: Regular rate and rhythm with a normal S1 and S2. No gallops, murmurs, or rubs. Normal PMI, no JVD. No pulse deficits. Abdomen/GI: Soft, non-tender, with normal bowel sounds. No distension or tympany. No guarding or rebound. No evidence of tenderness throughout. Back: No spinal tenderness. No costovertebral tenderness. Full range of motion. Male : Normal genitalia with no discharge or lesions. Skin: Warm, dry with normal turgor. Normal color with no rashes, no lesions, and no evidence of cellulitis. MS/ Extremity: Pulses equal, no cyanosis. Neurovascular intact. Full, normal range of motion. Neuro: Awake and alert, GCS 15, oriented to person, place, time, and situation. Cranial nerves II-XII grossly intact. Motor strength 5/5 in all extremities. Sensory grossly intact. Cerebellar exam normal. Normal gait. Psych: Awake, alert, with orientation to person, place and time. Behavior, mood, and affect are within normal limits. 20:54 Respiratory: the patient does not display signs of respiratory distress, Respirations: normal, Breath sounds: are clear throughout, Respiratory rate: 20 21:20 Musculoskeletal/extremity: Circulation is intact in all extremities. Sensation intact. wild Compartment Syndrome exam of affected extremity: is normal. DVT Exam: negative Homans' sign noted on exam, no appreciated bluish discoloration, pain, swelling, tenderness, erythema, increased warmth, that is mild, of the left leg. Vital Signs: 20:10 BP 153 / 88; Pulse 105; Resp 20; Temp 98.3; Pulse Ox 96% ; Weight 112.94 kg; Height 5 kb3 ft. 7 in. (170.18 cm); Pain 0/10; 21:00 BP 143 / 75; Pulse 96; Resp 20; Pulse Ox 96% ; kb3 22:00 BP 155 / 76; Pulse 91; Resp 18; Pulse Ox 97% ; kb3 20:10 Body Mass Index 39.00 (112.94 kg, 170.18 cm) kb3 MDM: 20:10 Patient medically screened. wild 20:55 Differential diagnosis: Anemia Anxiety Reaction Bronchitis CHF exacerbation, Chronic wild Obstructive Pulmonary Disease Pneumothorax pulmonary edema, Pulmonary Embolism reactive airway disease, Sepsis Unstable Angina. Antibiotic administration: Rocephin and Zithromax given. The patient's Wells Deep Vein Thrombosis Score was calculated as follows: Heart Rate >100 BPM (1.5 Pts). The patient's pulmonary embolism risk score was calculated as follows: the patients heart rate is greater than 100 beats per minute (1.5 Pts) Total Score: 0-2 points. This patient was found to be at low risk for a pulmonary embolism by using the Well's assessment criteria. Immunization status: Pneumococcal vaccine: Influenza vaccine: Data reviewed: vital signs, nurses notes, lab test result(s), EKG, radiologic studies, CT scan, plain films, ultrasound. Data interpreted: campus monitor: rate is 105 beats/min, rhythm is regular, Pulse oximetry: on room air is 96 %. Test interpretation: by ED physician or midlevel provider: ECG, plain radiologic studies. Counseling: I had a detailed discussion with the patient and/or guardian regarding: the historical points, exam findings, and any diagnostic results supporting the discharge/admit diagnosis, lab results, radiology results. 08/28 20:15 Order name: Basic Metabolic Panel; Complete Time: 21:15 [facility] 08/28 20:15 Order name: CBC with Diff; Complete Time: 21:15 [facility] 08/28 20:15 Order name: LFT's; Complete Time: 21:15 [facility] 08/28 20:15 Order name: Magnesium; Complete Time: 21:15 [facility] 08/28 20:15 Order name: NT PRO-BNP; Complete Time: 21:15 [facility] 08/28 20:15 Order name: PT-INR; Complete Time: 21:15 [facility] 08/28 20:15 Order name: Troponin HS; Complete Time: 21:15 [facility] 08/28 20:15 Order name: XRAY Chest (1 view); Complete Time: 22:37 [facility] 08/28 20:15 Order name: Blood Culture Adult (2) 08/28 20:15 Order name: Lactate w/ 2H reflex if indic.; Complete Time: 21:15 [facility] 08/28 20:15 Order name: COVID-19/FLU A+B; Complete Time: 21:36 [facility] 08/28 20:15 Order name: Lipase; Complete Time: 21:15 [facility] 08/28 20:42 Order name: US Extremity Venous W Compression Steve; Complete Time: 22:37 08/28 21:33 Order name: D-Dimer; Complete Time: 21:56 [facility] 08/28 20:15 Order name: EKG; Complete Time: 20:16 [facility] 08/28 20:15 Order name: Cardiac monitoring; Complete Time: 20:48 [facility] 08/28 20:15 Order name: EKG - Nurse/Tech; Complete Time: 23:02 [facility] 08/28 20:15 Order name: IV Saline Lock; Complete Time: 20:48 [facility] 08/28 20:15 Order name: Labs collected and sent; Complete Time: 20:48 [facility] 08/28 20:15 Order name: O2 Per Protocol; Complete Time: 20:48 [facility] 08/28 20:15 Order name: O2 Sat Monitoring; Complete Time: 20:48 [facility] 08/28 21:33 Order name: CT Chest Abdomen Pelvis W/O Contrast; Complete Time: 22:37 [facility] 08/28 21:37 Order name: VQ scan (Nuclear Medicine) 08/28 20:15 Order name: Urine Dipstick-Ancillary (obtain specimen); Complete Time: 23:02 wild Administered Medications: 21:19 Drug: NS 0.9% 1000 ml Route: IV; Rate: 125 ml/hr; Site: right antecubital; kb3 23:01 Follow up: Response: No adverse reaction; IV Status: Infusion continued upon admission; kb3 IV Intake: 200ml 23:56 Follow up: IV Status: Order to discontinue infusion kb3 21:19 Drug: Rocephin (cefTRIAXone) 1 grams Route: IV; Rate: per protocol; Site: right kb3 antecubital; 22:04 Follow up: Response: No adverse reaction; IV Status: Completed infusion; IV Intake: [id number] 22:20 Drug: Lovenox (enoxaparin) 1 mg/kg Route: Sub-Q; Site: abdomen; kb3 22:48 Follow up: Response: No adverse reaction kb3 22:22 Drug: Xopenex (levalbuterol) 1.25 mg Route: Inhalation; kb3 22:48 Follow up: Response: No adverse reaction kb3 22:22 Drug: AtroVENT (ipratropium) Aerosol 0.5 mg Route: Inhalation; kb3 22:48 Follow up: Response: No adverse reaction kb3 23:31 Drug: HYDROcodone-acetaminophen 5 mg-325 mg 1 tabs Route: PO; kb3 23:56 Follow up: Response: No adverse reaction kb3 Disposition Summary: 08/28/22 22:06 Hospitalization Ordered Hospitalization Status: Observation wild Provider: Brice Clemons cha Location: Telemetry/MedSurg (observation) wild Condition: Fair wild Problem: new wild Symptoms: have improved wild Bed/Room Type: Standard wild Room Assignment: 208(08/28/22 22:44) Diagnosis - Dyspnea wild - Edema, unspecified wild - COPD/ Chronic obstructive pulmonary disease, unspecified wild - Unspecified kidney failure - chronic wild - Abnormal levels of other serum enzymes - d-dimer wild Forms: - Medication Reconciliation Form wild - SBAR form wild Signatures: Dispatcher [employer] EDMS Delia Knowles RN RN mw Anderson, Corey, MD MD cha Bradberry, Kelly, RN RN kb3 Saira Gamble PA-C PA-C sb4 Corrections: (The following items were deleted from the chart) 21:39 20:46 Chest For PE Angio+CT.RAD.BRZ ordered. EDMS EDMS 22:44 22:06 wild mw
--- NOTE | 2022-08-28 22:06 | ER ---
Nurse's Notes [facility] Name: Taj Perez Age: 72 yrs Sex: Male : 1950 Arrival Date: 08/28/2022 Time: 20:06 Bed 18 Private MD: Diagnosis: Dyspnea;Edema, unspecified;COPD/ Chronic obstructive pulmonary disease, unspecified;Unspecified kidney failure-chronic;Abnormal levels of other serum [id number] Presentation: 08/28 20:10 Chief complaint: Patient states: Received care of pt from home via EMS. Pt reporting kb3 sudden onset of SOB at 1800 tonight while sitting in his recliner watching TV. Denies fever, cough, congestion, CP and reports SOB resolved after approximately 30 minutes. 20:10 Coronavirus screen: Vaccine status: Patient reports receiving the 2nd dose of the covid kb3 vaccine. Client denies travel out of the [place] in the last 14 days. Ebola Screen: Patient negative for fever greater than or equal to 101.5 degrees Fahrenheit, and additional compatible Ebola Virus Disease symptoms Patient denies exposure to infectious person. Patient denies travel to an Ebola-affected area in the 21 days before illness onset. Initial Sepsis Screen: Does the patient meet any 2 criteria? No. Patient's initial sepsis screen is negative. Does the patient have a suspected source of infection? No. Patient's initial sepsis screen is negative. Risk Assessment: Do you want to hurt yourself or someone else? Patient reports no desire to harm self or others. Onset of symptoms was August 28, 2022 at 20:00. 20:10 Method Of Arrival: EMS: [facility] kb3 20:10 Acuity: TRISH 3 kb3 Triage Assessment: 20:10 General: Appears in no apparent distress. Behavior is calm, cooperative. Pain: Denies kb3 pain. Cardiovascular: Denies chest pain, lightheadedness, nausea, palpitations. Respiratory: Reports shortness of breath at rest that resolved after 30 minutes GASTROENTEROLOGY MANAGER Airway is patent Respiratory effort is even, unlabored, Breath sounds are clear Breath sounds are diminished bilaterally. Onset: The symptoms/episode began/occurred today, the patient reports symptoms have resolved. Historical: - Allergies: 20:32 Ibuprofen; kb3 20:32 Oxycodone HCl; kb3 20:32 Risperdal; kb3 - PMHx: 20:32 Chronic obstructive lung disease; Congestive heart failure; Hypertensive disorder; kb3 Kidney stones; Myocardial infarction; psychiatric; spinal fusion; - PSHx: 20:32 bilateral knee replacement; heart stent/cath; kb3 - Immunization history:: Adult Immunizations up to date, Client reports receiving the 2nd dose of the Covid vaccine. - Social history:: Smoking status: Patient denies any tobacco usage or history of. Screenin:15 [facility] ED Fall Risk Assessment (Adult) History of falling in the last 3 months, kb3 including since admission No falls in past 3 months (0 pts) Confusion or Disorientation No (0 pts) Intoxicated or Sedated No (0 pts) Impaired Gait No (0 pts) Mobility Assist Device Used No (0 pt) Altered Elimination No (0 pt) Score/Fall Risk Level 0 - 2 = Low Risk Oriented to surroundings, Maintained a safe environment, Educated pt \T\ family on fall prevention, incl call for assistance when getting out of bed, Hourly rounding (assess needs \T\ fall precautionary measures) done. 23:00 Abuse screen: Denies threats or abuse. Denies injuries from another. Nutritional kb3 screening: No deficits noted. Tuberculosis screening: No symptoms or risk factors identified. Assessment: 20:15 General: See triage note. kb3 20:15 Cardiovascular: Rhythm is sinus tachycardia. kb3 22:00 Reassessment: Patient appears in no apparent distress at this time. No changes from kb3 previously documented assessment. Patient and/or family updated on plan of care and expected duration. Pain level reassessed. 23:00 Reassessment: Patient appears in no apparent distress at this time. No changes from kb3 previously documented assessment. Patient and/or family updated on plan of care and expected duration. Pain level reassessed. Vital Signs: 20:10 BP 153 / 88; Pulse 105; Resp 20; Temp 98.3; Pulse Ox 96% ; Weight 112.94 kg; Height 5 kb3 ft. 7 in. (170.18 cm); Pain 0/10; 21:00 BP 143 / 75; Pulse 96; Resp 20; Pulse Ox 96% ; kb3 22:00 BP 155 / 76; Pulse 91; Resp 18; Pulse Ox 97% ; kb3 20:10 Body Mass Index 39.00 (112.94 kg, 170.18 cm) kb3 ED Course: 20:06 Patient arrived in ED. eb 20:10 Brehane Gonzalez MD is Attending Physician. wild 20:10 Arm band placed on right wrist. Patient placed in an exam room, on a stretcher. kb3 20:15 Patient has correct armband on for positive identification. Bed in low position. Call kb3 light in reach. Side rails up X2. Client placed on continuous cardiac and pulse oximetry monitoring. NIBP monitoring applied. loading dock helper on. Warm blanket given. 20:15 No provider procedures requiring assistance completed. kb3 20:32 Triage completed. kb3 20:47 XRAY Chest (1 view) In Process Unspecified. EDMS 20:47 Inserted saline lock: 20 gauge in right antecubital area, using aseptic technique. zm Blood collected. 20:48 Lipase Sent. zm 20:48 Lactate w/ 2H reflex if indic. Sent. zm 20:48 COVID-19/FLU A+B Sent. zm 20:48 Blood Culture Adult (2) Sent. zm 20:48 Basic Metabolic Panel Sent. zm 20:48 CBC with Diff Sent. zm 20:48 LFT's Sent. zm 20:48 Magnesium Sent. zm 20:48 NT PRO-BNP Sent. zm 20:48 PT-INR Sent. zm 20:48 Troponin HS Sent. zm 21:19 Kiya Diaz, RN is Primary Nurse. kb3 21:56 CT Chest Abdomen Pelvis W/O Contrast In Process Unspecified. EDMS 22:02 Brice Clemons MD is Hospitalizing Provider. wild 22:09 US Extremity Venous W Compression Steve In Process Unspecified. EDMS 23:01 Patient admitted, IV remains in place. kb3 Administered Medications: 21:19 Drug: NS 0.9% 1000 ml Route: IV; Rate: 125 ml/hr; Site: right antecubital; kb3 23:01 Follow up: Response: No adverse reaction; IV Status: Infusion continued upon admission; kb3 IV Intake: 200ml 23:56 Follow up: IV Status: Order to discontinue infusion kb3 21:19 Drug: Rocephin (cefTRIAXone) 1 grams Route: IV; Rate: per protocol; Site: right [facility] antecubital; 22:04 Follow up: Response: No adverse reaction; IV Status: Completed infusion; IV Intake: [id number] 22:20 Drug: Lovenox (enoxaparin) 1 mg/kg Route: Sub-Q; Site: abdomen; kb3 22:48 Follow up: Response: No adverse reaction kb3 22:22 Drug: Xopenex (levalbuterol) 1.25 mg Route: Inhalation; kb3 22:48 Follow up: Response: No adverse reaction kb3 22:22 Drug: AtroVENT (ipratropium) Aerosol 0.5 mg Route: Inhalation; kb3 22:48 Follow up: Response: No adverse reaction kb3 23:31 Drug: HYDROcodone-acetaminophen 5 mg-325 mg 1 tabs Route: PO; kb3 23:56 Follow up: Response: No adverse reaction kb3 Medication: 20:15 VIS not applicable for this client. kb3 Intake: 22:04 IV: 50ml; Total: 50ml. kb3 23:01 IV: 200ml; Total: 250ml. kb3 Outcome: 22:06 Decision to Hospitalize by Provider. wild 23:00 Admitted to Med/surg accompanied by tech, via stretcher. kb3 23:00 Condition: stable 23:00 Instructed on the need for admit. 23:55 Patient left the ED. kb3 Signatures: Dispatcher [employer] EDMS Berhane Gonzalez MD MD cha Botello, Lalita Cheung Kelly, RN RN kb3 Corrections: (The following items were deleted from the chart) 20:34 20:32 General: Appears in no apparent distress. Behavior is calm, cooperative, kb3 kb3 20:34 20:32 Pain: Denies pain. kb3 kb3 20:34 20:32 Respiratory: Reports shortness of breath at rest that resolved after 30 minutes kb3 GASTROENTEROLOGY MANAGER Airway is patent Respiratory effort is even, unlabored, Breath sounds are clear Breath sounds are diminished bilaterally. Onset: The symptoms/episode began/occurred today, the patient reports symptoms have resolved kb3 20:34 20:32 Cardiovascular: Denies chest pain, lightheadedness, nausea, palpitations, kb3 kb3
--- NOTE | 2022-08-28 22:12 | RAD REPORT ---
EXAM DESCRIPTION: CT - Chest Abd Pelvis Wo Con - 08/28/2022 9:54 pm CLINICAL HISTORY: Shortness of breath and abdominal pain COMPARISON: CT chest August 24, 2022 TECHNIQUE: Computed axial tomography of the chest, abdomen and pelvis was obtained. Oral contrast wa s given. IV contrast was not requested. All CT scans are performed using dose optimization technique as appropriate and may include automated exposure control or mA/KV adjustment according to patient size. FINDINGS: The evaluation of mediastinum, josr, vessels and solid organs is limited secondary to the lack of IV contrast administration The lungs are clear No mediastinal or hilar lymphadenopathy is seen. Coronary arterial calcifications A pleural effusion is not present. Small pericardial effusion unchanged from prior exam Small low-density lesions liver are nonspecific but probably cysts. Spleen, pancreas and adrenals appear grossly normal. Small right renal cyst. Tiny nonobstructing renal calculi bilaterally. Renal cortical thinning Postsurgical changes involve the lumbar spine. Penile prosthesis in place. No evidence diverticulitis. Mild posterior subluxation L4 and L5. Minimal posterior subluxation L5 on S1. Spondylosis lower lumba r spine IMPRESSION: Small pericardial effusion unchanged No acute abnormality involving the abdomen/ pelvis seen
--- NOTE | 2022-08-28 22:15 | RAD REPORT ---
EXAM DESCRIPTION: USExtrem Venous W Compress Bil08/28/2022 10:07 pm CLINICAL HISTORY: Leg swelling COMPARISON: none FINDINGS: The common femoral, superficial femoral, popliteal and posterior tibial veins bilaterally are compressible and demonstrate augmentation. Doppler demonstrates good flow. Grayscale, color and spectral analysis performed on all vessels IMPRESSION: No evidence of deep venous thrombosis involving either lower extremity.
[2022-08-28] MEDS ORDERED: LEVALBUTEROL 1.25 MG/3 ML NEB ONE (22:16)
[2022-08-28] MEDS ORDERED: IPRATROPIUM BROM 0.5MG/2.5ML ONE (22:16)
[2022-08-28] MEDS ORDERED: ENOXAPARIN 100 MG/ML SYR SQ ONE (22:16)
--- NOTE | 2022-08-28 22:24 | RAD REPORT ---
EXAM DESCRIPTION: [place] Single View08/28/2022 8:45 pm CLINICAL HISTORY: Chest pain COMPARISON: August 24, 2022 FINDINGS: The lungs appear clear of acute infiltrate. The heart is normal size IMPRESSION: No acute abnormalities displayed
--- NOTE | 2022-08-28 22:37 | P.HP ---
Certification for Inpatient Patient admitted to: Observation With expected LOS: <2 Midnights Patient will require the following post-hospital care: None Practitioner: I am a practitioner with admitting privileges, knowledge of patient current condition, hospital course, and medical plan of care. Services: Services provided to patient in accordance with Admission requirements found in Title 42 Section 412.3 of the Code of Federal Regulations Patient History Date of Service: 08/28/22 Reason for admission: Dyspnea, JUAN LUIS History of Present Illness: Patient is a 71 year old male with past medical history of CAD, CKD3b, hypertension, and COPD who presented to the emergency department with complaints of sudden onset shortness of breath. He reports that the symptoms have now improved but he still feels like he cannot fully expirate. He had a total knee replacement 1 month ago that has been uncomplicated. Chest xray today is negative. Ddimer is elevated at 4866. Chest CTA cannot be performed due to kidney function (creatinine 2). He has been saturating appropriately on room air. No other significant lab abnormalities. Patient will be admitted for o bservation with VQ scan in the morning. Allergies oxycodone Allergy (Verified 09/25/21 21:14) "facial numbness" Home medications list reviewed: Yes Home Medications: Acetaminophen 1 tab PO Q6H PRN 09/26/21 Amlodipine [Norvasc*] 10 mg PO DAILY 09/26/21 Aripiprazole [Abilify] 0.5 tab PO DAILY 09/26/21 Clindamycin HCl 2 cap PO Q6H 09/26/21 Furosemide 40 mg PO DAILY 09/26/21 Ipratropium/Albuterol Sulfate [Combivent Respimat 20-100 Mcg] 1 inhaler IH QID 09/26/21 Isosorbide Mononitrate [Isosorbide Mononitrate ER] 30 mg PO DAILY 09/26/21 Latanoprost/Pf [Latanoprost 0.005% Eye Drop] 1 drop EACH EYE DAILY 09/26/21 Lidocaine 4% Patch [Lidoderm 5% Patch*] 1 patch TD DAILY 09/26/21 Methyl Salicylate/Menthol [Muscle Rub Cream] 10 - 15 % TOP Q8HR PRN 09/26/21 Metoprolol Succinate 100 mg PO DAILY 09/26/21 Multivitamin [Multiple Vitamins] 1 tab PO DAILY 09/26/21 Netarsudil Mesylat/Latanoprost [Rocklatan 0.02%-0.005% Eye Drp] 2.5 ml EACH EYE BEDTIME 09/26/21 Nitroglycerin 0.4 mg SL PRN 09/26/21 Potassium Citrate [Potassium Citrate ER] 10 meq PO DAILY 09/26/21 Tiotropium [Spiriva Handihaler*] 18 mcg IH DAILY 09/26/21 Atorvastatin Calcium [Lipitor] 40 mg PO BEDTIME #30 tab 09/28/21 Clopidogrel Bisulfate [Plavix*] 75 mg PO DAILY #30 tablet 09/28/21 predniSONE [Prednisone*] 20 mg PO BID #10 tab 09/28/21 - Past Medical/Surgical History Diabetic: No -: CAD -: COPD -: CKD -: Hypertension -: spinal fusion -: cardiac stent -: Bilateral replacement Psychosocial/ Personal History: Patient is . - Family History Family History: Reviewed- Non-Contributory - Social History Smoking Status: Former smoker Alcohol use: No CD- Drugs: No Caffeine use: Yes Place of Residence: Home Review of Systems Respiratory: Shortness of Breath Physical Examination - Vital Signs Temperature: 98.3 F Blood Pressure: 153/88 Pulse: 105 Respirations: 20 Pulse Ox (%): 96 (room air) - Physical Exam General: Alert, In no apparent distress HEENT: Atraumatic, PERRLA, EOMI, Sclerae nonicteric Neck: Supple, 2+ carotid pulse no bruit, No LAD, Without JVD or thyroid abnormality Respiratory: Clear to auscultation bilaterally, Normal air movement Cardiovascular: Regular rate/rhythm, Normal S1 S2 Gastrointestinal: Normal bowel sounds, No tenderness Musculoskeletal: No tenderness Integumentary: No rashes Neurological: Normal speech, Normal strength at 5/5 x4 extr, Normal tone, Normal affect - Studies Laboratory Data (last 24 hrs) 08/28/22 20:39: PT 12.1, INR 1.10 08/28/22 20:39: WBC 9.50, Hgb 11.9 L, Hct 35.8 L, Plt Count 264 08/28/22 20:39: Sodium 140, Potassium 3.7, BUN 23 H, Creatinine 2.00 H, Glucose 131 H, Magnesium 1.6, Total Bilirubin 0.4, AST 18, ALT 29, Alkaline Phosphatase 173 H, Lipase 60 L Assessment and Plan - Problems (Diagnosis) (1) Dyspnea Current Visit: Yes Status: Acute Qualifiers: Dyspnea type: shortness of breath Qualified Code(s): R06.02 - Shortness of breath; R06.00 - Dyspnea, unspecified; R06.01 - Orthopnea (2) Elevated d-dimer Current Visit: Yes Status: Acute (3) JUAN LUIS (acute kidney injury) Current Visit: Yes Status: Acute (4) Hypertension Current Visit: Yes Status: Chronic Qualifiers: Hypertension type: primary hypertension Qualified Code(s): I10 - Essential (primary) hypertension (5) CAD (coronary artery disease) Current Visit: Yes Status: Chronic Qualifiers: Coronary Disease-Associated Artery/Lesion type: cahto artery [place] vs. transplanted heart: cahto heart Associated angina: without angina Qualified Code(s): I25.10 - Atherosclerotic heart disease of cahto coronary artery without angina pectoris (6) COPD (chronic obstructive pulmonary disease) Current Visit: Yes Status: Chronic Qualifiers: COPD type: unspecified COPD Qualified Code(s): J44.9 - Chronic obstructive pulmonary disease, unspecified (7) Anemia Current Visit: Yes Status: Chronic Qualifiers: Anemia type: due to chronic kidney disease Chronic kidney disease stage: stage 3 (moderate) Chronic kidney disease stage 3 subtype: stage 3b (GFR 30- 44) Qualified Code(s): N18.32 - Chronic kidney disease, stage 3b; D63.1 - Anemia in chronic kidney disease - Plan Patient is admitted for observation, VQ scan. ED provider spoke with [facility], who will take patient for scan at 8AM. Breathing treatments PRN. Hydralazine for BP spikes. Monitor pulse oximetry. Reconcile and continue home medications. Full code. Discharge Plan: Home Plan to discharge in: 24 Hours - Advance Directives Does patient have a Living Will: No Does patient have a Durable POA for Healthcare: No - Code Status/Comfort Care Code Status Assessed: Yes Code Status: Full Code Physician Review: Patient Assessed, Agree with Above Assessment and Plan Critical Care: No Time Spent Managing Pts Care (In Minutes): 50
[2022-08-28] MEDS ORDERED: HYDROCODONE/APAP 5/325 MG TAB ONE (23:27)
[2022-08-28] MEDS ORDERED: ACETAMINOPHEN 500 MG TAB PO PRN (23:46)
[2022-08-28] MEDS ORDERED: ALBUTEROL 2.5 MG/3 ML NEB SOL NEB PRN (23:46)
[2022-08-28] MEDS ORDERED: ONDANSETRON 4 MG/2 ML VIAL IV PRN (23:46)
[2022-08-29 00:42] VITALS: BMI 35.0
[2022-08-29] MEDS: HYDROCODONE/APAP 5/325 MG TAB PO PRN ×3 (02:01→14:25)
[2022-08-29 05:22] LABS: Specific Gravity 1.011 (1.005-1.030); Urine Bacteria None Seen /HPF (<20); Urine Bilirubin NEGATIVE (Negative); Urine Blood Negative (Negative); Urine Clarity Clear (Clear); Urine Color Colorless (Yellow); Urine Glucose NEGATIVE (Negative); Urine Protein 1+ (Negative); Urine RBC <5 /HPF (None Seen); Urine Urobilinogen Normal (Normal)
[2022-08-29 06:18] LABS: Absolute Lymphocytes (CBC) 1.8 K/uL (0.7-4.9); Hematocrit 33.3 % (39.6-49.0); Lymphocytes % 23.2 % (15.3-44.8); MCV 90.4 fL (80-100); MPV 6.8 fL (7.6-11.3); RBC Red Blood Cell Count 3.68 M/uL (4.33-5.43)
[2022-08-29 06:39] LABS: Magnesium 1.8 mg/dL (1.6-2.4); Phosphorus 3.9 mg/dL (2.5-4.9); Potassium 3.7 mmol/L (3.5-5.1)
[2022-08-29 06:43] LABS: Thyroid Stimulating Hormone 4.14 uIU/mL (0.358-3.740)
[2022-08-29] MEDS ORDERED: MAGNESIUM SULFATE 1 gm IVPB 1 GM/100 ML BAG IV ONE (07:33)
--- NOTE | 2022-08-29 08:13 | RAD REPORT ---
EXAM DESCRIPTION: NM - Vent Perfusion VQ Scan - 08/29/2022 7:58 am CLINICAL HISTORY: sob COMPARISON: CT chest 08/28/2022, portable chest 08/28/2022 TECHNIQUE: The ventilation portion of the examination could not be performed due to unavailability o f the Xenon gas. The patient was then administered 6.6 mCi Tc-99m MAA labeled RBCs followed by standa rd 8 view protocol. FINDINGS: Perfusion images showed good distribution of the radiopharmaceutical. Slight heterogeneity of the distribution is not outside of normal range. There are no lobar, segmental or subsegmental pe rfusion defects identifiable. IMPRESSION: No perfusion abnormality identifiable. No suspicion for pulmonary embolic disease. Ventilation portion the examination could not be performed due to unavailability of the xenon gas.
[2022-08-29] MEDS ORDERED: CLOPIDOGREL 75 MG TABLET PO SCH (09:00)
[2022-08-29] MEDS ORDERED: DULOXETINE 20 MG CAP PO SCH (09:00)
[2022-08-29] MEDS ORDERED: AMLODIPINE 10 MG TAB PO SCH (09:00)
[2022-08-29] MEDS ORDERED: ASPIRIN EC 81 MG TAB PO SCH (09:00)
[2022-08-29] MEDS ORDERED: POTASSIUM CL SA 10 MEQ TAB PO ONE (09:00)
[2022-08-29] MEDS ORDERED: ISOSORBIDE MONO SR 30 MG TAB PO SCH (09:00)
[2022-08-29] MEDS ORDERED: Enoxaparin 120 MG/0.8 ML SYR SQ SCH (10:30)
[2022-08-29] MEDS ORDERED: FUROSEMIDE 20 MG/ 2ML VIAL ONE (10:47)
[2022-08-29] MEDS ORDERED: METHYLPREDNISOLONE 40 MG INJ ONE (10:48)
[2022-08-29] MEDS ORDERED: METHYLPREDNISOLONE 40 MG INJ IV ONE (11:00)
[2022-08-29] MEDS ORDERED: FUROSEMIDE 20 MG/ 2ML VIAL IV ONE (11:00)
[2022-08-29] MEDS ORDERED: clonazePAM 1 MG TAB PO ONE (11:00)
[2022-08-29] MEDS ORDERED: ALBUTEROL 2.5 MG/3 ML NEB SOL NEB PRN (12:00)
--- NOTE | 2022-08-29 15:49 | EKG ---
Test Date: 2022-08-28 Test Time: 22:26:47 Dental Assistant Teacher: LEO MEASUREMENT RESULTS: Intervals: Rate: 83 DC: 138 QRSD: 88 QT: 362 QTc: 425 [place]: P: 57 DC: 138 QRS: 55 T: 60 INTERPRETIVE STATEMENTS: Normal sinus rhythm Normal ECG Compared to ECG 08/24/2022 14:49:02 No significant changes Electronically Signed On 08-29-22 15:49:02 BREAKER MACHINE TENDER by Cristian Zacarias
[2022-08-29 16:08] VITALS: O2SAT 96
[2022-08-29 16:39] VITALS: BP 132/64; TEMP 98
[2022-08-29] MEDS ORDERED: ATORVASTATIN 40 MG TAB PO SCH (21:00)
== END 2022-08-29 20:30 | disposition home or self-care (01) ==
LOC: ER 20:01 → ERHOLD 22:31 → 2ND 22:50
PROVIDERS: ADMIT Hospitalist; ATTEND Hospitalist
DX: R06.00 Dyspnea, unspecified (principal); J44.9 Chronic obstructive pulmonary disease, unspecified; I25.10 Atherosclerotic heart disease of native coronary artery without angina pectoris; I12.9 Hypertensive chronic kidney disease with stage 1 through stage 4 chronic kidney disease, or unspecified chronic kidney disease; N18.32 Chronic kidney disease, stage 3b; N17.9 Acute kidney failure, unspecified; D63.1 Anemia in chronic kidney disease; R79.89 Other specified abnormal findings of blood chemistry; Z20.822 Contact with and (suspected) exposure to COVID-19
CPT/HCPCS: 0240U; 36415; 71045; 71250; 74176; 78582; 80048; 80061; 80076; 81001; 83605; 83690; 83735; 83880; 84100; 84439; 84443; 84484; 85025; 85379; 85610; 87040; 93005; 93970; 94760; 96361; 96365; 96372; 99285; A9540; J1650; J1940; J2920; J3475; J7030; J7614; J7644

== ENCOUNTER 2022-09-08 20:36 | Emergency (ER) | payer OTHER ==
--- OUTSIDE RECORDS SUMMARY | 2022-09-08 20:39 | XMS REPORT | Continuity of Care Document ---
:1950 Author Organization [facility] t Address [address] [place] [address] Care Team Providers Name Role Phone JACKIE VERNON Attending Clinician Unavailable ELLIOTT WANG Attending Clinician Unavailable Harriet-Mbayo_A_AH Attending Clinician Unavailable Harriet-Mbayo_A_AH Admitting Clinician Unavailable Payers Payer Name Policy Type Policy Number Effective Date Expiration Date S kulwinder [employer] MEDICARE ADV [id number] 2020 00:00:00 MEDICARE PART A [id number] 2020 \T\ B 00:00[facility]00 [id number] [place] 00:00:00 (MEDICARE REPLACEMENT/ADVANT AGE - HMO) Problems This patient has no known problems. Allergies, Adverse Reactions, Alerts Allergy Allergy Status Severity Reaction(s) Onset Inactive Treating Comm ents Source Name Type Date Date Clinician GABAPENT DRUG Active Unknown-Cmnt Un davina IN [facility] 04-20 ity of 00:00: [address] IBUPROFE DRUG Active Unknown-Cmnt Un davina N [facility] 04-20 ity of 00:00: [address] RISPERID DRUG Active EP Effects Univ ers ONE [facility] 04-20 ity of 00:00: [address] Medications This patient has no known medications. Procedures This patient has no known procedures. Encounters Start End Encounter Admission Attending Care Care Encounter Source Date/Time Date/Time Type Type Clinicians Facility Department ID 2020-06-25 2020-06-25 Outpatient [facility] [id number] Univers 00:00:00 00:00:00 JACKIE ity [facility] 2020-06-20 2020-06-20 Outpatient [facility] [id number] Univers 09:00:00 09:00:00 JACKIE doni [facility] 2020-05-02 2020-05-02 Outpatient Mer[place] WANG, [facility] [id number] Univers 08:30:00 08:30:00 ELLIOTT danilo [facility] 2019-11-22 2019-11-22 Outpatient Harriet-Mbayo VFP VFP [phone] [facility] 10:39:00 10:39:00 _A_ [id number] Family Practic e 2019-11-22 2019-11-22 Outpatient Harriet-Mbayo VFP VFP [phone] [facility] 10:39:00 10:39:00 _A_ [id number] Family Practic e Results This patient has no known results.
[2022-09-08 21:35] LABS: Absolute Lymphocytes (CBC) 0.8 K/uL (0.7-4.9); Hematocrit 36.1 % (39.6-49.0); MCV 90.1 fL (80-100); MPV 6.7 fL (7.6-11.3); RBC Red Blood Cell Count 4.01 M/uL (4.33-5.43)
[2022-09-08 21:52] LABS: Albumin 3.2 g/dL (3.4-5.0); Bilirubin Direct 0.2 mg/dL (0-0.2); Bilirubin Total 0.4 mg/dL (0.2-1.0); Protein, Total 7.2 g/dL (6.4-8.2); Troponin High Sensitivity 13.7 pg/mL (<58.9)
--- NOTE | 2022-09-08 22:09 | RAD REPORT ---
EXAM DESCRIPTION: RAD - Chest Single View - 09/08/2022 9:42 pm CLINICAL HISTORY: COPD COMPARISON: Portable 08/28/2022 TECHNIQUE: AP portable chest image was obtained 09/08/2022 9:42 pm . FINDINGS: Lung volumes are low. Airspace opacities are scattered in both lung [place]. This could be pulmonary edema or bilateral pneumonia. Cardiomediastinal silhouette within range of normal for shall ow inspiration portable imaging. No measurable pleural effusion and no pneumothorax. No acute bony ab normality seen. No acute aortic findings suspected. IMPRESSION: Bilateral alveolar opacification could be pulmonary edema for pneumonia.
[2022-09-08] MEDS ORDERED: IPRATROPIUM BROM 0.5MG/2.5ML ONE (22:53)
[2022-09-08] MEDS ORDERED: METHYLPREDNISOLONE 125 MG INJ ONE (22:53)
[2022-09-08] MEDS ORDERED: ALBUTEROL 2.5 MG/3 ML NEB SOL ONE (22:55)
--- NOTE | 2022-09-08 23:01 | ER ---
Nurse's Notes [facility] Name: Taj Perez Age: 72 yrs Sex: Male : 1950 Arrival Date: 09/08/2022 Time: 20:46 Bed 3 Private MD: Diagnosis: COPD/ Chronic obstructive pulmonary disease with (acute) exacerbation Presentation: 09/08 21:09 Chief complaint: EMS states: He was here with a COPD exacerbation. He was here at the 3 28 of August and he just doesn't feel 100%. We put him on 2 liters nasal canula and he says he feels a lot better. He takes at home albuterol treatments. 21:09 Method Of Arrival: EMS: [facility] kd3 21:19 Coronavirus screen: Vaccine status: Patient reports receiving the 2nd dose of the covid kd3 vaccine. Ebola Screen: No symptoms or risks identified at this time. Initial Sepsis Screen: Does the patient meet any 2 criteria? No. Patient's initial sepsis screen is negative. Does the patient have a suspected source of infection? No. Patient's initial sepsis screen is negative. Risk Assessment: Do you want to hurt yourself or someone else? Patient reports no desire to harm self or others. Onset of symptoms was September 08, 2022. 21:19 Acuity: TRISH 3 kd3 Triage Assessment: 21:21 General: Appears in no apparent distress. Behavior is calm, cooperative. Pain: Denies kd3 pain. Respiratory: Reports shortness of breath at rest Onset: The symptoms/episode began/occurred gradually, the patient has moderate shortness of breath. Historical: - Allergies: 21:21 Ibuprofen; kd3 21:21 Oxycodone HCl; kd3 21:21 Risperdal; kd3 - PMHx: 21:21 Chronic obstructive lung disease; Myocardial infarction; Kidney stones; Hypertensive kd3 disorder; psychiatric; spinal fusion; Congestive heart failure; - PSHx: 21:21 bilateral knee replacement; heart stent/cath; kd3 - Immunization history:: Adult Immunizations up to date. - Social history:: Smoking status: unknown. Screenin:14 [facility] ED Fall Risk Assessment (Adult) History of falling in the last 3 months, kd3 including since admission No falls in past 3 months (0 pts) Confusion or Disorientation No (0 pts) Intoxicated or Sedated No (0 pts) Impaired Gait No (0 pts) Mobility Assist Device Used No (0 pt) Altered Elimination No (0 pt) Score/Fall Risk Level 0 - 2 = Low Risk. Abuse screen: Denies threats or abuse. Denies injuries from another. Nutritional screening: No deficits noted. Tuberculosis screening: No symptoms or risk factors identified. Assessment: 23:14 Respiratory: Airway is patent Respiratory effort is even, unlabored, Breath sounds are kd3 diminished bilaterally. 23:14 Cardiovascular: Rhythm is regular. kd3 Vital Signs: 21:19 BP 145 / 77; Pulse 88; Resp 19; Temp 99.1(O); Pulse Ox 98% on 2 lpm NC; Weight 124.28 kd3 kg; Height 5 ft. 9 in. (175.26 cm); Pain 0/10; 21:45 BP 147 / 82; Pulse 82; Resp 21; Pulse Ox 96% ; eh3 22:45 BP 141 / 77; Pulse 84; Resp 22; Pulse Ox 100% on 2 lpm NC; eh3 23:10 BP 135 / 63; Pulse 94; Resp 22; Temp 99.2; Pulse Ox 96% ; rv1 21:19 Body Mass Index 40.46 (124.28 kg, 175.26 cm) kd3 ED Course: 20:46 Patient arrived in ED. wm 20:47 Jamil Agarwal MD is Attending Physician. sp3 21:09 Kyara Beck, ELBERT is Primary Nurse. kd3 21:21 Triage completed. kd3 21:21 Arm band placed on right wrist. EKG completed in triage. Results shown to . kd3 21:28 Troponin HS Sent. kd3 21:28 NT PRO-BNP Sent. kd3 21:28 LFT's Sent. kd3 21:28 CBC with Diff Sent. kd3 21:29 Basic Metabolic Panel Sent. kd3 21:37 Inserted saline lock: 20 gauge in right antecubital area, using aseptic technique. rv1 Blood collected. 21:44 XRAY Chest (1 view) In Process Unspecified. EDMS 23:14 No provider procedures requiring assistance completed. IV discontinued, intact, kd3 bleeding controlled, No redness/swelling at site. Pressure dressing applied. 23:15 Patient has correct armband on for positive identification. kd3 Administered Medications: 22:59 Drug: DuoNeb (albuterol 2.5 mg, ipratropium 0.5 mg) (3:1) (2.5 mg - 0.5 mg) 3 ml Route: 3 Nebulizer; 23:15 Follow up: Response: No adverse reaction kd3 22:59 Drug: SOLU-Medrol (methylPrednisoLONE) 60 mg Route: IVP; Site: right antecubital; [facility] 23:15 Follow up: Response: No adverse reaction kd3 Medication: 23:15 VIS not applicable for this client. kd3 Outcome: 23:00 Discharge ordered by . sp3 23:14 Discharged to home ambulatory. kd3 23:14 Condition: stable 23:14 Discharge instructions given to patient, Instructed on discharge instructions, follow up and referral plans. Demonstrated understanding of instructions, follow-up care, Prescriptions given X 2. 23:15 Patient left the ED. kd3 Signatures: Dispatcher [employer] EDMS Jayashree Steve Setul, MD MD sp3 Kyara Beck RN RN 3 Andie Araujo RN RN 3 Sandra Yanes rv1 Corrections: (The following items were deleted from the chart) 23:01 21:45 BP 147 / 82; Pulse 82bpm; Resp 21bpm; Pulse Ox 96% 2 lpm Nasal Cannula; 3 3
--- NOTE | 2022-09-08 23:01 | EDPHYS ---
Physician Documentation [facility] Name: Taj Perez Age: 72 yrs Sex: Male : 1950 Arrival Date: 09/08/2022 Time: 20:46 Bed 3 Private MD: ED Physician Jamil Agarwal HPI: 09/08 21:25 This 72 yrs old Male presents to ER via EMS with complaints of Breathing Difficulty. sp3 21:25 72-year-old male with history of COPD, MS, kidney stones presents to the ED for chief sp3 complaint difficulty breathing and COPD exacerbation similar to his prior episode. Patient was recently admitted and discharged from the hospital proximately 2 weeks ago for similar symptoms. Patient states that he is improved although his symptoms returned this evening. He has been taking his nebulizers at home without difficulty. He outside in the cool air and EMS transported along with nebulizer he took just prior to being transported, he now states that he is significantly improved. Denies headache, facial pain, neck pain, chest pain, back pain, abdominal pain, nausea, vomiting, diarrhea, rash, peripheral swelling, known sick contacts, travel history, any other symptoms on ROS at this time.. Historical: - Allergies: 21:21 Ibuprofen; kd3 21:21 Oxycodone HCl; kd3 21:21 Risperdal; kd3 - PMHx: 21:21 Chronic obstructive lung disease; Myocardial infarction; Kidney stones; Hypertensive kd3 disorder; psychiatric; spinal fusion; Congestive heart failure; - PSHx: 21:21 bilateral knee replacement; heart stent/cath; kd3 - Immunization history:: Adult Immunizations up to date. - Social history:: Smoking status: unknown. ROS: 21:26 Constitutional: Negative for fever, chills, and weight loss, Eyes: Negative for injury, sp3 pain, redness, and discharge, ENT: Negative for injury, pain, and discharge, Neck: Negative for injury, pain, and swelling, Cardiovascular: Negative for chest pain, palpitations, and edema, Abdomen/GI: Negative for abdominal pain, nausea, vomiting, diarrhea, and constipation, MS/Extremity: Negative for injury and deformity, Skin: Negative for injury, rash, and discoloration, Neuro: Negative for headache, weakness, numbness, tingling, and seizure, Psych: Negative for depression, anxiety, suicide ideation, homicidal ideation, and hallucinations, Allergy/Immunology: Negative for hives, rash, and allergies, Endocrine: Negative for neck swelling, polydipsia, polyuria, polyphagia, and marked weight changes, Hematologic/Lymphatic: Negative for swollen nodes, abnormal bleeding, and unusual bruising. 21:26 All other systems are negative. Exam: 21:27 Constitutional: This is a well developed, well nourished patient who is awake, alert, sp3 and in no acute distress. Head/Face: Normocephalic, atraumatic. Eyes: Pupils equal round and reactive to light, extra-ocular motions intact. Lids and lashes normal. Conjunctiva and sclera are non-icteric and not injected. Cornea within normal limits. Periorbital areas with no swelling, redness, or edema. ENT: Nares patent. No nasal discharge, no septal abnormalities noted. External auditory canals are clear. Oropharynx with no redness, swelling, or masses, exudates, or evidence of obstruction, uvula midline. Mucous membranes moist. Neck: Trachea midline, no thyromegaly or masses palpated, and no cervical lymphadenopathy. Supple, full range of motion without nuchal rigidity, or vertebral point tenderness. No Meningismus. Chest/axilla: Normal chest wall appearance and motion. Nontender with no deformity. No lesions are appreciated. Cardiovascular: Regular rate and rhythm with a normal S1 and S2. No gallops, murmurs, or rubs. Normal PMI, no JVD. No pulse deficits. Abdomen/GI: Soft, non-tender, with normal bowel sounds. No distension or tympany. No guarding or rebound. No evidence of tenderness throughout. Back: No spinal tenderness. No costovertebral tenderness. Full range of motion. Skin: Warm, dry with normal turgor. Normal color with no rashes, no lesions, and no evidence of cellulitis. MS/ Extremity: Pulses equal, no cyanosis. Neurovascular intact. Full, normal range of motion. Neuro: Awake and alert, GCS 15, oriented to person, place, time, and situation. Cranial nerves II-XII grossly intact. Motor strength 5/5 in all extremities. Sensory grossly intact. Cerebellar exam normal. Normal gait. Psych: Awake, alert, with orientation to person, place and time. Behavior, mood, and affect are within normal limits. 21:27 Respiratory: Referred with no tachypnea. Scattered wheeze noted. No significant wheezing, rales, rhonchi noted.. Vital Signs: 21:19 BP 145 / 77; Pulse 88; Resp 19; Temp 99.1(O); Pulse Ox 98% on 2 lpm NC; Weight 124.28 kd3 kg; Height 5 ft. 9 in. (175.26 cm); Pain 0/10; 21:45 BP 147 / 82; Pulse 82; Resp 21; Pulse Ox 96% ; eh3 22:45 BP 141 / 77; Pulse 84; Resp 22; Pulse Ox 100% on 2 lpm NC; eh3 23:10 BP 135 / 63; Pulse 94; Resp 22; Temp 99.2; Pulse Ox 96% ; rv1 21:19 Body Mass Index 40.46 (124.28 kg, 175.26 cm) kd3 MDM: 20:53 Patient medically screened. sp3 21:27 Data reviewed: vital signs, nurses notes, old medical records, lab test result(s), EKG, sp3 radiologic studies. ED course: 72-year-old male with COPD exacerbation. Differential diagnosis includes COPD, pneumonia, MS/ACS, CHF. Clinically I am not highly suspicious for these other pathologies and believe patient has had a mild continued COPD exacerbation. We will give him nebulizer x1 and IV steroids. Other work-up will include EKG, chest x-ray, laboratory values to rule out other items on the differential diagnosis. Disposition likely discharge home with PCP follow-up.. 22:59 ED course: CHF has been ruled out with a normal BNP. We will discharge patient home on sp3 oral steroids and antibiotics patient to continue his nebulizers as needed at home. Patient is amenable to the plan and has no questions. Creatinine of 1.87 is at patient's baseline.. 09/08 20:52 Order name: Basic Metabolic Panel; Complete Time: 22:58 sp3 09/08 20:52 Order name: CBC with Diff; Complete Time: 22:58 sp3 09/08 20:52 Order name: LFT's; Complete Time: 22:58 sp3 09/08 20:52 Order name: NT PRO-BNP; Complete Time: 22:58 sp3 09/08 20:52 Order name: Troponin HS; Complete Time: 22:58 sp3 09/08 20:52 Order name: XRAY Chest (1 view); Complete Time: 22:58 sp3 09/08 20:52 Order name: EKG; Complete Time: 20:54 sp3 09/08 20:52 Order name: Cardiac monitoring; Complete Time: 21:29 sp3 09/08 20:52 Order name: EKG - Nurse/Tech; Complete Time: 21:50 sp3 09/08 20:52 Order name: IV Saline Lock; Complete Time: 21:29 sp3 09/08 20:52 Order name: Labs collected and sent; Complete Time: 21:29 sp3 09/08 20:52 Order name: O2 Per Protocol; Complete Time: 21:29 sp3 09/08 20:52 Order name: O2 Sat Monitoring; Complete Time: 21:29 sp3 Administered Medications: 22:59 Drug: DuoNeb (albuterol 2.5 mg, ipratropium 0.5 mg) (3:1) (2.5 mg - 0.5 mg) 3 ml Route: eh3 Nebulizer; 23:15 Follow up: Response: No adverse reaction kd3 22:59 Drug: SOLU-Medrol (methylPrednisoLONE) 60 mg Route: IVP; Site: right antecubital; [facility] 23:15 Follow up: Response: No adverse reaction kd3 Disposition Summary: 09/08/22 23:00 Discharge Ordered Location: Home sp3 Condition: Stable sp3 Diagnosis - COPD/ Chronic obstructive pulmonary disease with (acute) exacerbation sp3 Followup: sp3 - With: Private Physician - When: Upon discharge from the Emergency Department - Reason: Continuance of care Discharge Instructions: - Discharge Summary Sheet sp3 - Chronic Obstructive Pulmonary Disease Exacerbation sp3 Forms: - Medication Reconciliation Form sp3 - Thank You Letter sp3 - Antibiotic Education sp3 - Prescription Opioid Use sp3 Prescriptions: - Prednisone 20 mg Oral Tablet - take 2 tablets by ORAL route once daily for 5 days; 10 tablet; Refills: 0, sp3 Product Selection Permitted - levofloxacin 500 mg Oral Tablet - take 1 tablet by ORAL route once daily for 7 days; 7 tablet; Refills: 0, sp3 Product Selection Permitted Signatures: Dispatcher [employer] Jamil Gastelum MD MD sp3 Kyara Beck RN RN 3 Andie Araujo RN RN 3 Corrections: (The following items were deleted from the chart) 23:00 22:59 ED course: CHF has been ruled out with a normal BNP. We will discharge patient sp3 home on oral steroids and antibiotics patient to continue his nebulizers as needed at home. Patient is amenable to the plan and has no questions.. sp3
[2022-09-08 23:48] VITALS: BP 135/63; TEMP 99.2; O2SAT 96
--- NOTE | 2022-09-09 17:44 | EKG ---
Test Date: 2022-09-08 Test Time: 21:43:01 Graphic Pre Press Trades Worker: RV MEASUREMENT RESULTS: Intervals: Rate: 84 [place]: 144 QRSD: 74 QT: 326 QTc: 385 [place]: P: 52 [place]: 144 QRS: 58 T: 50 INTERPRETIVE STATEMENTS: Normal sinus rhythm Normal ECG Compared to ECG 08/28/2022 22:26:47 No significant changes Electronically Signed On 09-09-22 17:42:29 PHYSICAL THERAPIST ASSISTANT by Cristian Zacarias
== END 2022-09-08 23:15 | disposition home or self-care (01) ==
LOC: ER 20:36
DX: J44.1 Chronic obstructive pulmonary disease with (acute) exacerbation (principal); Z95.818 Presence of other cardiac implants and grafts; Z96.653 Presence of artificial knee joint, bilateral; Z88.5 Allergy status to narcotic agent; Z88.6 Allergy status to analgesic agent; Z88.8 Allergy status to other drugs, medicaments and biological substances
CPT/HCPCS: 85025; 80048; 36415; 80076; 84484; 83880; 71045; J7613; J7644; J2930; 93005

== ENCOUNTER 2022-09-10 14:58 | Emergency (ER) | payer OTHER ==
--- OUTSIDE RECORDS SUMMARY | 2022-09-10 15:01 | XMS REPORT | Continuity of Care Document ---
:1950 Author Organization [facility] t Address [address] [place] [address] Care Team Providers Name Role Phone JACKIE VERNON Attending Clinician Unavailable ELLIOTT WANG Attending Clinician Unavailable Harriet-Mbayo_A_AH Attending Clinician Unavailable Harriet-Mbayo_A_AH Admitting Clinician Unavailable Payers Payer Name Policy Type Policy Number Effective Date Expiration Date S kulwinder AETNA MEDICARE ADV [id number] 2020 00:00:00 MEDICARE PART A [id number] 2020 \T\ B 00:00:00 [facility] [id number] 2019 [place] 00:00:00 (MEDICARE REPLACEMENT/ADVANT AGE - HMO) Problems This patient has no known problems. Allergies, Adverse Reactions, Alerts Allergy Allergy Status Severity Reaction(s) Onset Inactive Treating Comm ents Source Name Type Date Date Clinician GABAPENT DRUG Active Unknown-Cmnt Un davina IN [facility] 04-20 ity of 00:00: [address] IBUPROFE DRUG Active Unknown-Cmnt Un davina N [facility] 04-20 ity of 00:00: [address] RISPERID DRUG Active EP Effects Univ ers ONE [facility] 04-20 ity of 00:00: [address] Medications This patient has no known medications. Procedures This patient has no known procedures. Encounters Start End Encounter Admission Attending Care Care Encounter Source Date/Time Date/Time Type Type Clinicians Facility Department ID 2020-06-25 2020-06-25 Outpatient [facility] [id number] Univers 00:00:00 00:00:00 JACKIE ity [facility] 2020-06-20 2020-06-20 Outpatient [facility] [id number] Univers 09:00:00 09:00:00 JACKIE doni [facility] 2020-05-02 2020-05-02 Outpatient Merced WANG, [facility] [id number] Univers 08:30:00 08:30:00 ELLIOTT danilo [facility] 2019-11-22 2019-11-22 Outpatient Harriet-Mbayo VFP VFP [phone] [facility] 10:39:00 10:39:00 _A_ [id number] Family Practic e 2019-11-22 2019-11-22 Outpatient Harriet-Mbayo VFP VFP [phone] [facility] 10:39:00 10:39:00 _A_ [id number] Family Practic e Results This patient has no known results.
[2022-09-10] MEDS ORDERED: METHYLPREDNISOLONE 125 MG INJ ONE (15:48)
[2022-09-10] MEDS ORDERED: LEVALBUTEROL 1.25 MG/3 ML NEB ONE (15:48)
[2022-09-10 16:05] LABS: Absolute Lymphocytes (CBC) 0.7 K/uL (0.7-4.9); Hematocrit 33.3 % (39.6-49.0); Lymphocytes % 8.4 % (15.3-44.8); MCV 89.9 fL (80-100); MPV 6.7 fL (7.6-11.3); RBC Red Blood Cell Count 3.71 M/uL (4.33-5.43)
[2022-09-10 16:09] LABS: Protime INR 1.05
[2022-09-10 16:26] LABS: Albumin 2.9 g/dL (3.4-5.0); Bilirubin Direct 0.1 mg/dL (0-0.2); Bilirubin Total 0.4 mg/dL (0.2-1.0); Magnesium 1.9 mg/dL (1.6-2.4); Potassium 4.6 mmol/L (3.5-5.1); Protein, Total 6.8 g/dL (6.4-8.2); Troponin High Sensitivity 22.8 pg/mL (<58.9)
--- NOTE | 2022-09-10 16:30 | RAD REPORT ---
EXAM DESCRIPTION: [facility] Single View09/10/2022 4:08 pm CLINICAL HISTORY: Cough COMPARISON: September 08, 2022 FINDINGS: Partial resolution in bilateral pulmonary opacities. Heart is normal size IMPRESSION: Partial resolution in bilateral pulmonary opacities which may represent mild pulmonary e jeremias
[2022-09-10 17:06] LABS: SARS-COV-2 RT PCR POSITIVE (NEGATIVE)
[2022-09-10] MEDS ORDERED: FUROSEMIDE 40 MG/4 ML VIAL ONE (17:09)
--- NOTE | 2022-09-10 17:24 | ER ---
Nurse's Notes [facility] Name: Taj Perez Age: 72 yrs Sex: Male : 1950 Arrival Date: 09/10/2022 Time: 15:04 Bed 19 Private MD: Diagnosis: SARS-associated coronavirus as the cause of diseases classified elsewhere;COPD/ Chronic obstructive pulmonary disease with (acute) exacerbation Presentation: 09/10 15:06 Chief complaint: EMS states: Pt has trouble breathing out since around lunch time mb9 today/ EMS gave Albuteral and Atrovent breathing treatment in route. EMS states when they arrived at [facility], pt was 90% on room air and increased to 95% on 1 L/min via nasal cannula. Coronavirus screen: Vaccine status: Patient reports receiving the 2nd dose of the covid vaccine. Ebola Screen: No symptoms or risks identified at this time. Initial Sepsis Screen: Does the patient meet any 2 criteria?. Initial Sepsis Screen: Does the patient meet any 2 criteria? No. Patient's initial sepsis screen is negative. Does the patient have a suspected source of infection? No. Patient's initial sepsis screen is negative. Risk Assessment: Do you want to hurt yourself or someone else? Patient reports no desire to harm self or others. Onset of symptoms was September 10, 2022. 15:06 Method Of Arrival: EMS: [facility] mb9 15:06 Acuity: TRISH 3 mb9 Historical: - Allergies: 15:09 Ibuprofen; mb9 15:09 Oxycodone HCl; mb9 15:09 Risperdal; mb9 - Home Meds: 15:09 Plavix Oral [Active]; mb9 - PMHx: 15:09 Chronic obstructive lung disease; Congestive heart failure; Hypertensive disorder; mb9 Kidney stones; Myocardial infarction; spinal fusion; psychiatric; - PSHx: 15:09 bilateral knee replacement; heart stent/cath; mb9 - Immunization history:: Adult Immunizations up to date. - Social history:: Smoking status: Patient/guardian denies using tobacco, but has a distant history of tobacco abuse. - Family history:: not pertinent. - Hospitalizations: : No recent hospitalization is reported. Screenin:09 [facility] ED Fall Risk Assessment (Adult) History of falling in the last 3 months, mb9 including since admission No falls in past 3 months (0 pts) Confusion or Disorientation No (0 pts) Intoxicated or Sedated No (0 pts) Impaired Gait No (0 pts) Mobility Assist Device Used No (0 pt) Altered Elimination No (0 pt) Score/Fall Risk Level 0 - 2 = Low Risk Maintained a safe environment. Abuse screen: Denies threats or abuse. Nutritional screening: No deficits noted. Tuberculosis screening: No symptoms or risk factors identified. Assessment: 15:20 General: Appears in no apparent distress. comfortable, Behavior is calm, cooperative, mb9 appropriate for age. Pain: Denies pain. Neuro: Orr Agitation-Sedation Scale (RASS): 0 - Alert and Calm Level of Consciousness is awake, alert, obeys commands, Oriented to person, place, time, situation, Appropriate for age. Cardiovascular: Heart tones S1 S2 present Rhythm is regular. Respiratory: Airway is patent Respiratory effort is even, unlabored, Respiratory pattern is regular, symmetrical, Breath sounds are clear bilaterally. GI: Abdomen is round non-distended. : No signs and/or symptoms were reported regarding the genitourinary system. EENT: No signs and/or symptoms were reported regarding the EENT system. Derm: Skin is pink, warm \\T\\ dry. Musculoskeletal: Range of motion: intact in all extremities. 15:25 Reassessment: pt states "I feel better after I got the breathing treatment in the [facility]". 15:40 Reassessment: first set of blood cultures sent. mb9 16:15 Reassessment: second set of blood cultures sent. mb9 16:44 General: Appears in no apparent distress. Behavior is calm, cooperative. Pain: Denies mb9 pain. Neuro: Level of Consciousness is awake, alert, obeys commands, Oriented to person, place, time, situation, Appropriate for age. Cardiovascular: Rhythm is regular. Respiratory: Airway is patent Respiratory effort is even, unlabored, Respiratory pattern is regular, symmetrical. Derm: Skin is pink, warm \\T\\ dry. 17:05 Reassessment: pt oxygen saturation dropped to 86% on room air. Placed 1 l/min via nasal mb9 cannula on pt, oxygen saturation now 93%. 17:29 Reassessment: Patient denies pain at this time. Patient states feeling better. Patient mb9 states symptoms have improved. Respiratory: Airway is patent Respiratory effort is even, unlabored. Derm: Skin is pink, warm \\T\\ dry. Vital Signs: 15:06 BP 127 / 67; Pulse 98; Resp 18; Temp 98.3(O); Pulse Ox 100% on R/A; Weight 108.86 kg; mb9 Height 5 ft. 9 in. (175.26 cm); Pain 0/10; 16:21 BP 127 / 74; Pulse 115; Resp 22; Pulse Ox 100% on R/A; Pain 0/10; mb9 17:00 BP 127 / 74; Pulse 110; Resp 22; Pulse Ox 100% on R/A; Pain 0/10; mb9 17:29 BP 117 / 64; Pulse 104; Resp 20; Pulse Ox 93% on 1 lpm NC; Pain 0/10; mb9 15:06 Body Mass Index 35.44 (108.86 kg, 175.26 cm) mb9 ED Course: 15:04 Patient arrived in ED. iw 15:04 Max Quezada MD is Attending Physician. rn 15:05 Placed in gown. Bed in low position. Call light in reach. Side rails up X 1. Client mb9 placed on continuous cardiac and pulse oximetry monitoring. NIBP monitoring applied. 15:06 Renu Choi, ELBERT is Primary Nurse. mb9 15:08 Triage completed. mb9 15:09 Arm band placed on. mb9 15:25 EKG done, by ED staff, reviewed by Max Quezada MD. mb9 15:35 Inserted saline lock: 20 gauge in right antecubital area, using aseptic technique. mb9 Blood collected. 15:43 COVID-19/FLU A+B Sent. mb9 15:43 BMP Sent. mb9 15:43 Troponin HS Sent. mb9 15:43 Magnesium Sent. mb9 15:43 CBC with Diff Sent. mb9 15:43 Hepatic Function Sent. mb9 15:43 Ptt, Activated Sent. mb9 15:43 PT-INR Sent. mb9 15:43 NT PRO-BNP Sent. mb9 16:10 XRAY CXR (1 view) In Process Unspecified. EDMS 16:19 Blood Culture Adult (2) Sent. mb9 17:18 No provider procedures requiring assistance completed. mb9 17:30 IV discontinued, intact, bleeding controlled, No redness/swelling at site. Pressure mb9 dressing applied. Administered Medications: 15:45 Drug: SOLU-Medrol (methylPrednisoLONE) 125 mg Route: IVP; Site: right antecubital; mb9 16:08 Follow up: Response: No adverse reaction mb9 15:45 Drug: Xopenex (levalbuterol) (3) 1.25 mg Route: Inhalation; mb9 16:08 Follow up: Response: No adverse reaction mb9 16:21 Follow up: Response: No adverse reaction mb9 17:13 Drug: Lasix (furosemide) 40 mg Route: IVP; Site: right antecubital; mb9 17:31 Follow up: Response: No adverse reaction mb9 Medication: 15:10 VIS not applicable for this client. mb9 Outcome: 17:23 Discharge ordered by . rn 17:34 Discharged to home via wheelchair. mb9 17:34 Condition: stable 17:34 Discharge instructions given to patient, Instructed on discharge instructions, follow up and referral plans. Demonstrated understanding of instructions, follow-up care, medications, Prescriptions given X 3. 17:39 Patient left the ED. mb9 Signatures: Dispatcher [employer] EDRashida Skelton, Max Aamro RN, MD MD rn Breneman, Mary Beth, RN RN mb9
--- NOTE | 2022-09-10 17:24 | EDPHYS ---
Physician Documentation [facility] Name: Taj Perez Age: 72 yrs Sex: Male : 1950 Arrival Date: 09/10/2022 Time: 15:04 Bed 19 Private MD: ED Physician Max Quezada HPI: 09/10 16:18 This 72 yrs old Male presents to ER via EMS with complaints of sob. rn 16:18 The patient has shortness of breath at rest, with light activity. Onset: The rn symptoms/episode began/occurred today. Duration: The symptoms are intermittent. The patient's shortness of breath is aggravated by exertion, light activity, is alleviated by nebulizer treatment. Associated signs and symptoms: Pertinent positives: non-productive cough, Pertinent negatives: chest pain, fever, hemoptysis. Severity of symptoms: At their worst the symptoms were mild in the emergency department the symptoms have improved. The patient has experienced similar episodes in the past. The patient has not recently seen a physician. Pt reports sob, does not feel sick, no fever, no chest pain, no hemoptysis. Improved after breathing treatment, now feels better. Not on oxygen at home. . Historical: - Allergies: 15:09 Ibuprofen; mb9 15:09 Oxycodone HCl; mb9 15:09 Risperdal; mb9 - Home Meds: 15:09 Plavix Oral [Active]; mb9 - PMHx: 15:09 Chronic obstructive lung disease; Congestive heart failure; Hypertensive disorder; mb9 Kidney stones; Myocardial infarction; spinal fusion; psychiatric; - PSHx: 15:09 bilateral knee replacement; heart stent/cath; mb9 - Immunization history:: Adult Immunizations up to date. - Social history:: Smoking status: Patient/guardian denies using tobacco, but has a distant history of tobacco abuse. - Family history:: not pertinent. - Hospitalizations: : No recent hospitalization is reported. ROS: 16:18 Constitutional: Negative for fever, chills, and weight loss, Eyes: Negative for injury, rn pain, redness, and discharge, Neck: Negative for injury, pain, and swelling, Cardiovascular: Negative for chest pain, palpitations, and edema, Respiratory: Negative for pleuritic chest pain Abdomen/GI: Negative for abdominal pain, nausea, vomiting, diarrhea, and constipation, Back: Negative for injury and pain, MS/Extremity: Negative for injury and deformity, Skin: Negative for injury, rash, and discoloration, Neuro: Negative for headache, weakness, numbness, tingling, and seizure. Exam: 16:16 ECG was reviewed by the Attending Physician. rn 16:18 Constitutional: This is a well developed, well nourished patient who is awake, alert, rn and in no acute distress. Head/Face: Normocephalic, atraumatic. ENT: No stridor Cardiovascular: Regular rate and rhythm. No pulse deficits. Respiratory: No increased work of breathing, no retractions or nasal flaring. Abdomen/GI: Soft, non-tender Skin: Warm, dry MS/ Extremity: Pulses equal, no cyanosis. Neurovascular intact. Full, normal range of motion. Equal circumference. Neuro: Awake and alert, GCS 15 Vital Signs: 15:06 BP 127 / 67; Pulse 98; Resp 18; Temp 98.3(O); Pulse Ox 100% on R/A; Weight 108.86 kg; mb9 Height 5 ft. 9 in. (175.26 cm); Pain 0/10; 16:21 BP 127 / 74; Pulse 115; Resp 22; Pulse Ox 100% on R/A; Pain 0/10; mb9 17:00 BP 127 / 74; Pulse 110; Resp 22; Pulse Ox 100% on R/A; Pain 0/10; mb9 17:29 BP 117 / 64; Pulse 104; Resp 20; Pulse Ox 93% on 1 lpm NC; Pain 0/10; mb9 15:06 Body Mass Index 35.44 (108.86 kg, 175.26 cm) mb9 MDM: 15:04 Patient medically screened. rn 17:21 Differential diagnosis: Bronchitis CHF exacerbation, Chronic Obstructive Pulmonary rn Disease Myocardial Infarction pneumonia, Pneumothorax pulmonary edema, reactive airway disease. Data reviewed: vital signs, nurses notes, lab test result(s), EKG, radiologic studies, plain films, and as a result, I will discharge patient. Counseling: I had a detailed discussion with the patient and/or guardian regarding: the historical points, exam findings, and any diagnostic results supporting the discharge/admit diagnosis, lab results, radiology results, the need for outpatient follow up, to return to the emergency department if symptoms worsen or persist or if there are any questions or concerns that arise at home. Response to treatment: the patient's symptoms have markedly improved after treatment, and as a result, I will discharge patient. Special discussion: Based on the history and exam findings, there is no indication for further emergent testing or inpatient evaluation. I discussed with the patient/guardian the need to see the primary care provider for further evaluation of the symptoms. ED course: Pt with COVID and COPD exacerbation. Offered admission for this given is his 2nd visit this week. Patient declines, wants to go home, understands risks/benefits of admission vs discharge. States has home oxygen. CXR shows improvement compared to a few days ago. pt denies sob. . 09/10 15:17 Order name: BMP; Complete Time: 16:33 rn 09/10 15:17 Order name: Blood Culture Adult (2) rn 09/10 15:17 Order name: CBC with Diff; Complete Time: 16:33 rn 09/10 15:17 Order name: Hepatic Function; Complete Time: 16:33 rn 09/10 15:17 Order name: Magnesium; Complete Time: 16:33 rn 09/10 15:17 Order name: NT PRO-BNP; Complete Time: 16:33 rn 30 15:17 Order name: PT-INR; Complete Time: 16:33 rn 09/10 15:17 Order name: Ptt, Activated; Complete Time: 16:33 rn 09/10 15:17 Order name: Troponin HS; Complete Time: 16:33 rn 30 15:17 Order name: XRAY CXR (1 view); Complete Time: 16:33 rn 09/10 15:17 Order name: COVID-19/FLU A+B; Complete Time: 17:11 rn 09/10 15:17 Order name: EKG; Complete Time: 15:17 rn 30 15:17 Order name: Cardiac monitoring; Complete Time: 15:22 rn 30 15:17 Order name: EKG - Nurse/Tech; Complete Time: 15:43 rn 30 15:17 Order name: IV Saline Lock; Complete Time: 15:43 rn 30 15:17 Order name: Labs collected and sent; Complete Time: 15:43 rn 1230 15:17 Order name: O2 Per Protocol; Complete Time: 15: rn 09/10 15:17 Order name: O2 Sat Monitoring; Complete Time: 15:22 rn EC:16 Rate is 99 beats/min. Rhythm is regular. QRS [place] is Normal. MD interval is normal. QRS rn interval is normal. QT interval is normal. No Q waves. T waves are Normal. No ST changes noted. Clinical impression: Normal ECG. Interpreted by me. Reviewed by me. Administered Medications: 15:45 Drug: SOLU-Medrol (methylPrednisoLONE) 125 mg Route: IVP; Site: right antecubital; mb9 16:08 Follow up: Response: No adverse reaction mb9 15:45 Drug: Xopenex (levalbuterol) (3) 1.25 mg Route: Inhalation; mb9 16:08 Follow up: Response: No adverse reaction mb9 16:21 Follow up: Response: No adverse reaction mb9 17:13 Drug: Lasix (furosemide) 40 mg Route: IVP; Site: right antecubital; mb9 17:31 Follow up: Response: No adverse reaction mb9 Disposition Summary: 09/10/22 17:23 Discharge Ordered Location: Home rn Problem: an acute exacerbation rn Symptoms: have improved rn Condition: Stable rn Diagnosis - SARS-associated coronavirus as the cause of diseases classified elsewhere rn - COPD/ Chronic obstructive pulmonary disease with (acute) exacerbation rn Followup: rn - With: Private Physician - When: As needed - Reason: Recheck today's complaints, Re-evaluation by your physician Discharge Instructions: - Discharge Summary Sheet rn - Chronic Obstructive Pulmonary Disease Exacerbation rn - COVID-19 rn - 10 Things You Can Do to Manage Your COVID-19 Symptoms at Home - [facility] rn - Viral Illness, Adult rn Forms: - Medication Reconciliation Form rn - Thank You Letter rn - Antibiotic internet salesperson - Prescription Opioid Use rn Prescriptions: - Paxlovid (EUA) 150-100 mg Oral tablet - take 2 tablet by ORAL route 2 times per day per package directions; 1 packet; rn Refills: 0, Product Selection Permitted - Prednisone 20 mg Oral Tablet - take 3 tablets by ORAL route once daily for 5 days; 15 tablet; Refills: 0, rn Product Selection Permitted - Albuterol Sulfate 2.5 mg /3 mL (0.083 %) Inhalation Solution for Nebulization - inhale 1 unit by NEBULIZATION route every 8 hours As needed; 1 box; Refills: 0, rn Product Selection Permitted Signatures: Dispatcher [employer] [facility] Pilar, Max, MD MD rn Jimbo, Renu Brumfield RN RN mb9
[2022-09-10 17:55] VITALS: TEMP 98.3
[2022-09-10 18:12] VITALS: BP 117/64; O2SAT 93
--- NOTE | 2022-09-12 19:08 | EKG ---
Test Date: 2022-09-10 Test Time: 15:32:31 Rn Intern: MB MEASUREMENT RESULTS: Intervals: Rate: 99 [place]: 136 QRSD: 74 QT: 300 QTc: 385 [place]: P: 41 CO: 136 QRS: 64 T: 62 INTERPRETIVE STATEMENTS: Normal sinus rhythm Normal ECG Compared to ECG 09/08/2022 21:43:01 No significant changes Electronically Signed On 09-12-22 19:07:03 UTILITY APPRAISER by Cristian Zacarias
== END 2022-09-10 17:39 | disposition home or self-care (01) ==
LOC: ER 14:58
DX: U07.1 COVID-19 (principal); J44.1 Chronic obstructive pulmonary disease with (acute) exacerbation; I10 Essential (primary) hypertension; I50.9 Heart failure, unspecified; Z79.01 Long term (current) use of anticoagulants; Z88.5 Allergy status to narcotic agent; Z88.6 Allergy status to analgesic agent; Z88.8 Allergy status to other drugs, medicaments and biological substances
CPT/HCPCS: 93005; 87040 ×2; 85025; 80048; 36415; 83735; 85610; 80076; 85730; 84484; 83880; 0240U; 71045; 96375; 96374; 99285; J7614; J1940; J2930

== ENCOUNTER 2022-09-12 00:25 | Inpatient (IN) | payer OTHER ==
--- OUTSIDE RECORDS SUMMARY | 2022-09-12 00:28 | XMS REPORT | Continuity of Care Document ---
:1950 Author Organization [facility] t Address [address] [place] [address] Care Team Providers Name Role Phone JACKIE VERNON Attending Clinician Unavailable ELLIOTT WANG Attending Clinician Unavailable Harriet-Mbayo_A_AH Attending Clinician Unavailable Harriet-Mbayo_A_AH Admitting Clinician Unavailable Payers Payer Name Policy Type Policy Number Effective Date Expiration Date S kulwinder [employer]NA MEDICARE ADV [id number] 2020 00:00:00 MEDICARE PART A [id number] 2020 \T\ B 00:00:00 [facility] [id number] [employer] 00:00:00 (MEDICARE REPLACEMENT/ADVANT AGE - HMO) Problems This patient has no known problems. Allergies, Adverse Reactions, Alerts Allergy Allergy Status Severity Reaction(s) Onset Inactive Treating Comm ents Source Name Type Date Date Clinician GABAPENT DRUG Active Unknown-Cmnt Un davina IN [facility] 04-20 ity of 00:00: [address] IBUPROFE DRUG Active Unknown-Cmnt Un davina N [facility] 04-20 ity of 00:00: [address] RISPERID DRUG Active EP Effects Univ ers ONE [facility] 04-20 ity of 00:00: [address] Medications This patient has no known medications. Procedures This patient has no known procedures. Encounters Start End Encounter Admission Attending Care Care Encounter Source Date/Time Date/Time Type Type Clinicians Facility Department ID 2020-06-25 2020-06-25 Outpatient [facility] [id number] Univers 00:00:00 00:00:00 JACKIE ity [facility] 2020-06-20 2020-06-20 Outpatient [facility] [id number] Univers 09:00:00 09:00:00 JACKIE doni [facility] 2020-05-02 2020-05-02 Outpatient Merced WANG, [facility] [id number] Univers 08:30:00 08:30:00 ELLIOTT danilo [facility] 2019-11-22 2019-11-22 Outpatient Harriet-Mbayo VFP VFP [id number] [facility] 10:39:00 10:39:00 _A_ [id number] Family Practic e 2019-11-22 2019-11-22 Outpatient Harriet-Mbayo VFP VFP [phone] [facility] 10:39:00 10:39:00 _A_ [id number] Family Practic e Results This patient has no known results.
[2022-09-12] MEDS ORDERED: ACETAMINOPHEN 325 MG TABLET ONE (01:21)
[2022-09-12] MEDS ORDERED: METHYLPREDNISOLONE 125 MG INJ ONE (01:21)
[2022-09-12] MEDS ORDERED: IPRATROPIUM BROM 0.5MG/2.5ML ONE (01:21)
[2022-09-12] MEDS ORDERED: LEVALBUTEROL 1.25 MG/3 ML NEB ONE (01:21)
[2022-09-12] MEDS ORDERED: Levofloxacin500mg IV 500 MG/100 ML BAG IV ONE (01:22)
[2022-09-12] MEDS ORDERED: Magnesium Sulfate 2gm IVPB 2 G/50 ML BAG IV ONE (01:22)
--- NOTE | 2022-09-12 01:32 | ER ---
Nurse's Notes [facility] Name: Taj Perez Age: 72 yrs Sex: Male : 1950 Arrival Date: 09/12/2022 Time: 00:28 Bed 6 Private MD: Diagnosis: Dyspnea;COPD/ Chronic obstructive pulmonary disease with (acute) exacerbation;Hypoxemia;Fever, unspecified;Pneumonia due to other specified bacteria-bilateral;Coronavirus infection, unspecified;Pneumonia due to SARS-associated coronavirus;SARS-associated coronavirus as the cause of diseases classified elsewhere Presentation: 09/12 00:28 Chief complaint: Patient states: Sob for the past 2 months. Was recently diagnosed with jb4 COPD. Starting last night his breathing has gotten worse. Tonight it worsened again. He was 80% on RA. We put him on 4L NC and his sats increased to 94%. 00:28 Coronavirus screen: At this time, the client does not indicate any symptoms associated jb4 with coronavirus-19. Ebola Screen: No symptoms or risks identified at this time. Onset of symptoms was September 10, 2022. Transition of care: patient was not received from another setting of care. 00:28 Method Of Arrival: EMS: [facility] jb4 00:28 Acuity: TRISH 3 jb4 00:46 Initial Sepsis Screen: Does the patient meet any 2 criteria? RR > 20 per min. HR > 90 jb4 bpm. Yes Does the patient have a suspected source of infection? No. Patient's initial sepsis screen is negative. Risk Assessment: Do you want to hurt yourself or someone else? Patient reports no desire to harm self or others. Historical: - Allergies: 00:28 Ibuprofen; jb4 00:28 Oxycodone HCl; jb4 00:28 Risperdal; jb4 - Home Meds: 00:28 Plavix Oral [Active]; jb4 - PMHx: 00:28 Chronic obstructive lung disease; Congestive heart failure; Hypertensive disorder; jb4 Kidney stones; Myocardial infarction; psychiatric; spinal fusion; - PSHx: 00:28 heart stent/cath; bilateral knee replacement; jb4 - Immunization history:: Adult Immunizations up to date. - Social history:: Smoking status: Patient/guardian denies using tobacco, the patient reports quitting approximately 25 years ago. - Family history:: not pertinent. Screenin:28 [facility] ED Fall Risk Assessment (Adult) History of falling in the last 3 months, jb4 including since admission No falls in past 3 months (0 pts) Confusion or Disorientation No (0 pts) Intoxicated or Sedated No (0 pts) Impaired Gait No (0 pts) Mobility Assist Device Used No (0 pt) Altered Elimination No (0 pt) Score/Fall Risk Level 0 - 2 = Low Risk Oriented to surroundings. Abuse screen: Denies threats or abuse. Nutritional screening: No deficits noted. Tuberculosis screening: No symptoms or risk factors identified. Assessment: 00:28 General: Appears in no apparent distress. comfortable, Behavior is calm, cooperative, jb4 appropriate for age. Pain: Denies pain. Neuro: Level of Consciousness is awake, alert, obeys commands, Oriented to person, place, time, situation. Cardiovascular: Patient's skin is warm and dry. Respiratory: Airway is patent Respiratory effort is even, labored, Respiratory pattern is symmetrical, tachypnea. GI: No signs and/or symptoms were reported involving the gastrointestinal system. : No signs and/or symptoms were reported regarding the genitourinary system. EENT: No signs and/or symptoms were reported regarding the EENT system. Derm: Skin is intact, Skin is pink, warm \T\ dry. Musculoskeletal: Circulation, motion, and sensation intact. Range of motion: intact in all extremities. 02:00 Reassessment: Patient appears in no apparent distress at this time. Patient and/or jb4 family updated on plan of care and expected duration. Pain level reassessed. Respirations remain tachypneic and labored. 03:00 Reassessment: Patient appears in no apparent distress at this time. No changes from jb4 previously documented assessment. Patient and/or family updated on plan of care and expected duration. Pain level reassessed. 04:18 Reassessment: Patient appears in no apparent distress at this time. No changes from jb4 previously documented assessment. Patient and/or family updated on plan of care and expected duration. Pain level reassessed. Vital Signs: 00:46 BP 131 / 81; Pulse 101; Resp 24; Temp 100.2; Pulse Ox 93% on 4 lpm NC; Weight 104.33 kg jb4 (M); Height 5 ft. 9 in. (175.26 cm) (R); 02:45 BP 105 / 61; Pulse 97; Resp 24; Pulse Ox 90% on 4 lpm NC; jb4 03:30 BP 121 / 61; Pulse 92; Resp 26; Temp 98.3(TE); Pulse Ox 92% on 4 lpm NC; jb4 00:46 Body Mass Index 33.96 (104.33 kg, 175.26 cm) jb4 ED Course: 00:28 Patient arrived in ED. sb4 00:28 Arm band placed on right wrist. jb4 00:29 Berhane Gonzalez MD is Attending Physician. wild 00:32 Kyara Beck, ELBERT is Primary Nurse. kd3 00:41 Triage completed. jb4 01:11 Troponin HS Sent. jb4 01:11 PT-INR Sent. jb4 01:11 NT PRO-BNP Sent. jb4 01:11 Magnesium Sent. jb4 01:11 LFT's Sent. jb4 01:11 CBC with Diff Sent. jb4 01:11 Basic Metabolic Panel Sent. jb4 01:11 COVID-19/FLU A+B Sent. jb4 01:11 Lactate w/ 2H reflex if indic. Sent. jb4 01:18 XRAY Chest (1 view) In Process Unspecified. EDMS 01:30 Emre Ricci MD is Hospitalizing Provider. wild 04:19 No provider procedures requiring assistance completed. Patient admitted, IV remains in jb4 place. Administered Medications: 01:26 Not Given (Duplicate Order): predniSONE 60 mg PO once wild 01:36 Drug: NS 0.9% 1000 ml {Note: Infusion continued from EMS NS .} Route: IV; Rate: 125 tw5 ml/hr; Site: right antecubital; 04:22 Follow up: Response: No adverse reaction; IV Status: Infusion continued upon admission jb4 01:36 Drug: SOLU-Medrol (methylPrednisoLONE) 125 mg Route: IVP; Site: right antecubital; tw5 02:00 Follow up: Response: No adverse reaction jb4 01:36 Drug: Xopenex (levalbuterol) 3.75 mg Route: Inhalation; tw5 01:36 Drug: AtroVENT (ipratropium) Aerosol 0.5 mg Route: Inhalation; tw5 01:36 Drug: levofloxacin 500 mg Volume: 100 ml; Route: IVPB; Infused Over: 60 mins; Site: tw5 right antecubital; 02:40 Follow up: Response: No adverse reaction; IV Status: Completed infusion; IV Intake: tw5 100ml 01:36 Drug: Tylenol 650 mg Route: PO; tw5 02:30 Follow up: Response: No adverse reaction; Temperature is decreased jb4 01:55 Drug: Magnesium Sulfate 2 grams Route: IVPB; Infused Over: 1 hrs; Site: left tw5 antecubital; 02:55 Follow up: Response: No adverse reaction; IV Status: Completed infusion jb4 02:40 Drug: vancoMYCIN 1 grams Route: IVPB; Infused Over: 2 hrs; Site: right antecubital; tw5 04:21 Follow up: IV Status: Infusion continued upon admission jb4 Medication: 04:18 VIS not applicable for this client. jb4 Intake: 02:40 IV: 100ml; Total: 100ml. tw5 Outcome: 01:32 Decision to Hospitalize by Provider. wild 04:19 Admitted to Tele accompanied by nurse, via stretcher, room 406, with oxygen, with jb4 chart, Report called to ELBERT Hernandez 04:19 Condition: stable 04:19 Discharge instructions given to patient, Instructed on the need for admit, Demonstrated understanding of instructions. 04:22 Patient left the ED. jb4 Signatures: Dispatcher [employer] Berhane Castillo MD MD cha Bryson, James, RN ELBERT tobias4 Amy Martinez tw5 Kyara Beck RN RN tu3 Saira Gamble, PAEduar PAEduar sb4 Corrections: (The following items were deleted from the chart) 01:36 01:36 NS 0.9% 1000 ml IV at 125 ml/hr in right antecubital tw5 tw5
--- NOTE | 2022-09-12 01:33 | EDPHYS ---
Physician Documentation [facility] Name: Taj Perez Age: 72 yrs Sex: Male : 1950 Arrival Date: 09/12/2022 Time: 00:28 Bed 6 Private MD: ED Physician Berhane Gonzalez HPI: 09/12 00:38 This 72 yrs old Male presents to ER via Unassigned with complaints of HYPOXIA wild , COPD. 00:38 The patient has shortness of breath at rest, with light activity. Onset: The wild symptoms/episode began/occurred 3 day(s) ago. Duration: The symptoms are continuous, and are steadily getting worse. The patient's shortness of breath has no apparent modifying factors. The patient or guardian reports cough, difficulty breathing, flu symptoms, arthralgias. Onset: The symptoms/episode began/occurred. Modifying factors: The symptoms are alleviated by nothing. the symptoms are aggravated by nothing. Associated signs and symptoms: Pertinent positives: non-productive cough. Severity of symptoms: At their worst the symptoms were mild in the emergency department the symptoms are unchanged. Historical: - Allergies: 00:28 Ibuprofen; jb4 00:28 Oxycodone HCl; jb4 00:28 Risperdal; jb4 - Home Meds: 00:28 Plavix Oral [Active]; jb4 - PMHx: 00:28 Chronic obstructive lung disease; Congestive heart failure; Hypertensive disorder; jb4 Kidney stones; Myocardial infarction; psychiatric; spinal fusion; - PSHx: 00:28 heart stent/cath; bilateral knee replacement; jb4 - Immunization history:: Adult Immunizations up to date. - Social history:: Smoking status: Patient/guardian denies using tobacco, the patient reports quitting approximately 25 years ago. - Family history:: not pertinent. ROS: 00:40 Constitutional: Negative for fever, chills, and weight loss, Eyes: Negative for injury, wild pain, redness, and discharge, ENT: Negative for injury, pain, and discharge, Neck: Negative for injury, pain, and swelling, Cardiovascular: Negative for chest pain, palpitations, and edema, Abdomen/GI: Negative for abdominal pain, nausea, vomiting, diarrhea, and constipation, Back: Negative for injury and pain, : Negative for injury, bleeding, discharge, and swelling, MS/Extremity: Negative for injury and deformity, Skin: Negative for injury, rash, and discoloration, Neuro: Negative for headache, weakness, numbness, tingling, and seizure. 00:40 Respiratory: Positive for cough, shortness of breath, at rest. Exam: 00:40 Constitutional: This is a well developed, well nourished patient who is awake, alert, wild and in no acute distress. Head/Face: Normocephalic, atraumatic. Eyes: Pupils equal round and reactive to light, extra-ocular motions intact. Lids and lashes normal. Conjunctiva and sclera are non-icteric and not injected. Cornea within normal limits. Periorbital areas with no swelling, redness, or edema. ENT: Nares patent. No nasal discharge, no septal abnormalities noted. Tympanic membranes are normal and external auditory canals are clear. Oropharynx with no redness, swelling, or masses, exudates, or evidence of obstruction, uvula midline. Mucous membranes moist. Neck: Trachea midline, no thyromegaly or masses palpated, and no cervical lymphadenopathy. Supple, full range of motion without nuchal rigidity, or vertebral point tenderness. No Meningismus. Chest/axilla: Normal chest wall appearance and motion. Nontender with no deformity. No lesions are appreciated. Cardiovascular: Regular rate and rhythm with a normal S1 and S2. No gallops, murmurs, or rubs. Normal PMI, no JVD. No pulse deficits. Abdomen/GI: Soft, non-tender, with normal bowel sounds. No distension or tympany. No guarding or rebound. No evidence of tenderness throughout. Back: No spinal tenderness. No costovertebral tenderness. Full range of motion. Male : Normal genitalia with no discharge or lesions. Skin: Warm, dry with normal turgor. Normal color with no rashes, no lesions, and no evidence of cellulitis. MS/ Extremity: Pulses equal, no cyanosis. Neurovascular intact. Full, normal range of motion. Neuro: Awake and alert, GCS 15, oriented to person, place, time, and situation. Cranial nerves II-XII grossly intact. Motor strength 5/5 in all extremities. Sensory grossly intact. Cerebellar exam normal. Normal gait. Psych: Awake, alert, with orientation to person, place and time. Behavior, mood, and affect are within normal limits. 00:40 Respiratory: the patient does not display signs of respiratory distress, Respirations: labored breathing, that is mild, Breath sounds: decreased breath sounds, that are moderate, rhonchi, that are mild, are scattered, stridor, is not appreciated, + upper airway congestion. wheezing: expiratory Respiratory rate: 22 01:01 ECG was reviewed by the Attending Physician. [facility] Vital Signs: 00:46 BP 131 / 81; Pulse 101; Resp 24; Temp 100.2; Pulse Ox 93% on 4 lpm NC; Weight 104.33 kg jb4 (M); Height 5 ft. 9 in. (175.26 cm) (R); 02:45 BP 105 / 61; Pulse 97; Resp 24; Pulse Ox 90% on 4 lpm NC; jb4 03:30 BP 121 / 61; Pulse 92; Resp 26; Temp 98.3(TE); Pulse Ox 92% on 4 lpm NC; jb4 00:46 Body Mass Index 33.96 (104.33 kg, 175.26 cm) jb4 MDM: 00:29 Patient medically screened. wild 00:44 Differential diagnosis: Anemia Anxiety Reaction asthma, Bronchitis CHF exacerbation, wild Chronic Obstructive Pulmonary Disease obstructed airway, flu, URI, pneumonia, Pneumothorax pulmonary edema, reactive airway disease, Sepsis. Antibiotic administration: Levaquin given. The patient's Wells Deep Vein Thrombosis Score was calculated as follows: Total Score: 0-2 Pts- Low Risk. Differential Diagnosis: Bronchitis Influenza Upper Respiratory Infection Sinusitis Pharyngitis Asthma Exacerbation Viral Syndrome Pneumonia. The patient's pulmonary embolism risk score was calculated as follows: Total Score: 0-2 points. This patient was found to be at low risk for a pulmonary embolism by using the Well's assessment criteria. Immunization status: Pneumococcal vaccine: Influenza vaccine: Data reviewed: vital signs, nurses notes, lab test result(s), EKG, radiologic studies, plain films. Data interpreted: monitor technician: rate is 89 beats/min, rhythm is regular, Pulse oximetry: on room air is 91 %. Test interpretation: by ED physician or midlevel provider: ECG, plain radiologic studies. Counseling: I had a detailed discussion with the patient and/or guardian regarding: the historical points, exam findings, and any diagnostic results supporting the discharge/admit diagnosis, lab results, radiology results, the need for further work-up and treatment in the hospital. 09/12 00:38 Order name: Basic Metabolic Panel [facility] 09/12 00:38 Order name: CBC with Diff [facility] 09/12 00:38 Order name: LFT's [facility] 09/12 00:38 Order name: Magnesium [facility] 09/12 00:38 Order name: NT PRO-BNP [facility] 09/12 00:38 Order name: PT-INR [facility] 09/12 00:38 Order name: Troponin HS [facility] 09/12 00:38 Order name: XRAY Chest (1 view) [facility] 09/12 00:38 Order name: ABG [facility] 09/12 00:38 Order name: Blood Culture Adult (2) [facility] 09/12 00:38 Order name: Lactate w/ 2H reflex if indic. [facility] 09/12 00:40 Order name: COVID-19/FLU A+B [facility] 09/12 01:26 Order name: CT Chest Wo Con [facility] 09/12 00:38 Order name: EKG; Complete Time: 00:58 [facility] 09/12 00:38 Order name: Cardiac monitoring; Complete Time: 01:00 [facility] 09/12 00:38 Order name: EKG - Nurse/Tech; Complete Time: 01:00 [facility] 09/12 00:38 Order name: IV Saline Lock; Complete Time: 01:00 [facility] 09/12 00:38 Order name: Labs collected and sent; Complete Time: 01:00 [facility] 09/12 00:38 Order name: O2 Per Protocol; Complete Time: 00:48 [facility] 09/12 00:38 Order name: O2 Sat Monitoring; Complete Time: 00:48 [facility] EC:01 Rate is 98 beats/min. Rhythm is regular. QRS [place] is Normal. VT interval is normal. QRS wild interval is normal. QT interval is normal. No Q waves. T waves are Normal. No ST changes noted. Clinical impression: NSR w/ Non-specific ST/T Changes and No evidence of ischemia. Interpreted by me. Reviewed by me. Administered Medications: : Not Given (Duplicate Order): predniSONE 60 mg PO once wild :36 Drug: NS 0.9% 1000 ml {Note: Infusion continued from EMS NS .} Route: IV; Rate: 125 tw5 ml/hr; Site: right antecubital; 04:22 Follow up: Response: No adverse reaction; IV Status: Infusion continued upon admission jb4 01:36 Drug: SOLU-Medrol (methylPrednisoLONE) 125 mg Route: IVP; Site: right antecubital; tw5 02:00 Follow up: Response: No adverse reaction jb4 01:36 Drug: Xopenex (levalbuterol) 3.75 mg Route: Inhalation; tw5 01:36 Drug: AtroVENT (ipratropium) Aerosol 0.5 mg Route: Inhalation; tw5 01:36 Drug: levofloxacin 500 mg Volume: 100 ml; Route: IVPB; Infused Over: 60 mins; Site: tw5 right antecubital; 02:40 Follow up: Response: No adverse reaction; IV Status: Completed infusion; IV Intake: tw5 100ml 01:36 Drug: Tylenol 650 mg Route: PO; tw5 02:30 Follow up: Response: No adverse reaction; Temperature is decreased jb4 01:55 Drug: Magnesium Sulfate 2 grams Route: IVPB; Infused Over: 1 hrs; Site: left tw5 antecubital; 02:55 Follow up: Response: No adverse reaction; IV Status: Completed infusion jb4 02:40 Drug: vancoMYCIN 1 grams Route: IVPB; Infused Over: 2 hrs; Site: right antecubital; tw5 04:21 Follow up: IV Status: Infusion continued upon admission jb4 Disposition Summary: 09/12/22 01:32 Hospitalization Ordered Hospitalization Status: Inpatient Admission wild Provider: Emre Ricci cha Location: Telemetry/[facility] (Inpatient) wild Condition: Fair wild Problem: new wild Symptoms: have improved wild Bed/Room Type: Standard [facility] Room Assignment: 406(09/12/22 02:51) tw5 Diagnosis - Dyspnea wild - COPD/ Chronic obstructive pulmonary disease with (acute) exacerbation wild - Hypoxemia wild - Fever, unspecified wild - Pneumonia due to other specified bacteria - bilateral wild - Coronavirus infection, unspecified wild - Pneumonia due to SARS-associated coronavirus wild - SARS-associated coronavirus as the cause of diseases classified elsewhere wild Forms: - Medication Reconciliation Form wild - SBAR form wild Signatures: Dispatcher [employer] Berhane Castillo MD MD cha Bryson, James, RN RN Amy Decker tw5 Corrections: (The following items were deleted from the chart) 02:49 01:32 wild tw5 02:51 02:49 408 tw5 tw5
[2022-09-12 01:43] LABS: Absolute Lymphocytes (CBC) 0.5 K/uL (0.7-4.9); Hematocrit 34.7 % (39.6-49.0); Lymphocytes % 3.4 % (15.3-44.8); MCV 89.5 fL (80-100); MPV 6.6 fL (7.6-11.3); Protime INR 1.1; RBC Red Blood Cell Count 3.88 M/uL (4.33-5.43)
[2022-09-12 02:01] LABS: Albumin 2.7 g/dL (3.4-5.0); Bilirubin Direct 0.2 mg/dL (0-0.2); Bilirubin Total 0.5 mg/dL (0.2-1.0); Magnesium 1.9 mg/dL (1.6-2.4); Potassium 4.8 mmol/L (3.5-5.1); Protein, Total 6.8 g/dL (6.4-8.2); Troponin High Sensitivity 19.9 pg/mL (<58.9)
[2022-09-12] MEDS ORDERED: NA CHLORIDE 0.9% 250 ML ONE (02:07)
[2022-09-12] MEDS ORDERED: VANCOMYCIN 1 GM/VIAL ONE (02:07)
[2022-09-12 02:31] LABS: SARS-COV-2 RT PCR POSITIVE (NEGATIVE)
--- NOTE | 2022-09-12 02:31 | P.HP ---
Certification for Inpatient Patient admitted to: Inpatient With expected LOS: <2 Midnights Patient will require the following post-hospital care: None Practitioner: I am a practitioner with admitting privileges, knowledge of patient current condition, hospital course, and medical plan of care. Services: Services provided to patient in accordance with Admission requirements found in Title 42 Section 412.3 of the Code of Federal Regulations Patient History Date of Service: 09/12/22 Reason for admission: COVID PNA History of Present Illness: Patient is a 72 year old male with past medical history of CAD, CKD3b, hypertension, and COPD who presented to the emergency department via EMS with complaints of shortness of breath. This is the fifth time this patient has been seen in this emergency department this month for shortness of breath. EMS reports that he was saturating 80% on room air when they arrived. He was saturating 93% on 4 L upon arrival to the emergency department. He was also tachypneic, tachycardic and febrile at 100.2F. his labs are significant for WBC 13.7, hemoglobin 11.5, BUN 43, creatinine 1.97, BNP 359, COVID-positive. Chest x-ray showed "Scattered interstitial and airspace opacities bilaterally, new compared to the prior exam." Chest CT is pending. He was given Tylenol, Levaquin, breathing treatment, Solu-Medrol, magnesium, IV fluids, and vancomycin in the emergency department. He is admitted for further management. Allergies oxycodone Allergy (Verified 08/29/22 00:16) "facial numbness" Home medications list reviewed: Yes Home Medications: Amlodipine [Norvasc*] 5 mg PO DAILY 09/26/21 Ipratropium/Albuterol Sulfate [Combivent Respimat 20-100 Mcg] 12 puff IH Q6H PRN 09/26/21 Isosorbide Mononitrate [Isosorbide Mononitrate ER] 60 mg PO DAILY 09/26/21 Clopidogrel Bisulfate [Plavix*] 75 mg PO DAILY #30 tablet 09/28/21 ARIPiprazole [Aripiprazole] 0.5 tab PO DAILY 08/29/22 Aspirin [Aspirin EC] 81 mg PO BID 08/29/22 Atorvastatin Calcium [Lipitor] 80 mg PO BEDTIME 08/29/22 Cetirizine HCl 1 tab PO DAILY 08/29/22 Cholecalciferol 50 Mg Vit D3 2000 Unit 1 tab PO DAILY 08/29/22 Duloxetine HCl 4 cap PO DAILY 08/29/22 Hydrocodone Bit/Acetaminophen [Hydrocodon-Acetaminophen 5-325] 1 tab PO Q6H PRN 08/29/22 Levalbuterol HCl [Xopenex Concentrate] 1.25 mg NEB Q6HP PRN #60 amp 08/29/22 Nebulizer 1 each MC DAILY #1 box 08/29/22 Nebulizer Accessories [Aeroneb Go] 1 each MC DAILY #1 box 08/29/22 clonazePAM [Klonopin] 0.5 mg PO BID PRN #30 08/29/22 clonazePAM [Klonopin] 0.5 mg PO BID PRN #30 tab 08/29/22 predniSONE [Deltasone] 20 mg PO DAILY #5 tab 08/29/22 - Past Medical/Surgical History Diabetic: No -: CAD -: COPD -: CKD -: Hypertension -: spinal fusion -: cardiac stent -: Bilateral replacement Psychosocial/ Personal History: Patient is . - Family History Family History: Reviewed- Non-Contributory - Social History Smoking Status: Former smoker Alcohol use: No CD- Drugs: No Caffeine use: Yes Place of Residence: Home Review of Systems Respiratory: Cough, Shortness of Breath Physical Examination - Physical Exam General: Alert, In no apparent distress HEENT: Atraumatic, PERRLA, EOMI, Sclerae nonicteric Neck: Supple, 2+ carotid pulse no bruit, No LAD, Without JVD or thyroid abnormality Respiratory: Expiratory wheezes Cardiovascular: Regular rate/rhythm, Normal S1 S2 Gastrointestinal: Normal bowel sounds, No tenderness Musculoskeletal: No tenderness Integumentary: No rashes Neurological: Normal speech, Normal strength at 5/5 x4 extr, Normal tone, Normal affect - Studies Laboratory Data (last 24 hrs) 09/12/22 01:07: PT 12.1, INR 1.10 09/12/22 01:07: WBC 13.70 H, Hgb 11.5 L, Hct 34.7 L, Plt Count 185 09/12/22 01:07: Sodium 135 L, Potassium 4.8, BUN 43 H, Creatinine 1.97 H, Glucose 112 H, Magnesium 1.9, Total Bilirubin 0.5, AST 25, ALT 31, Alkaline Phosphatase 103 Assessment and Plan - Problems (Diagnosis) (1) Pneumonia Current Visit: Yes Status: Acute Qualifiers: Pneumonia type: due to unspecified organism Laterality: bilateral Lung location: lower lobe of lung Qualified Code(s): J18.9 - Pneumonia, unspecified organism (2) CAD (coronary artery disease) Current Visit: Yes Status: Chronic Qualifiers: Coronary Disease-Associated Artery/Lesion type: [place] artery [place] vs. transplanted heart: [place] heart Associated angina: without angina Qualified Code(s): I25.10 - Atherosclerotic heart disease of [place] coronary artery without angina pectoris (3) CKD (chronic kidney disease) Current Visit: Yes Status: Chronic Qualifiers: Chronic kidney disease stage: stage 3 (moderate) Chronic kidney disease stage 3 subtype: stage 3b (GFR 30-44) Qualified Code(s): N18.32 - Chronic kidney disease, stage 3b (4) COPD (chronic obstructive pulmonary disease) Current Visit: Yes Status: Chronic Qualifiers: COPD type: emphysema Emphysema type: unspecified Qualified Code(s): J43.9 - Emphysema, unspecified (5) Hypertension Current Visit: Yes Status: Chronic Qualifiers: Hypertension type: primary hypertension Qualified Code(s): I10 - Essential (primary) hypertension (6) Sepsis Current Visit: Yes Status: Acute Qualifiers: Sepsis type: sepsis due to unspecified organism Sepsis acute organ dysfunction status: without acute organ dysfunction Qualified Code(s): A41.9 - Sepsis, unspecified organism (7) COVID-19 Current Visit: Yes Status: Acute (8) Anemia Current Visit: Yes Status: Chronic Qualifiers: Anemia type: due to chronic kidney disease Chronic kidney disease stage: stage 3 (moderate) Chronic kidney disease stage 3 subtype: stage 3b (GFR 30- 44) Qualified Code(s): N18.32 - Chronic kidney disease, stage 3b; D63.1 - Anemia in chronic kidney disease - Plan Patient is admitted for further management of COVID pneumonia. Continue supportive measures with supplemental oxygen, breathing treatments, antitussives, decongestants. Titrate O2 and wean as tolerated. Solu-Medrol, incentive spirometry, vitamin C and zinc ordered daily. Patient meet sepsis criteria although source is viral, COVID-19. Blood cultures were obtained and he received antibiotics in ED, levaquin and vancomycin. Isolation precautions in place. Monitor and replete electrolytes per protocol. Reconcile and continue home medications. Lovenox for VTE prophylaxis. Full code. Discharge Plan: Home Plan to discharge in: Greater than 2 days - Advance Directives Does patient have a Living Will: No Does patient have a Durable POA for Healthcare: No - Code Status/Comfort Care Code Status Assessed: Yes Code Status: Full Code Physician Review: Patient Assessed, Agree with Above Assessment and Plan Critical Care: No Time Spent Managing Pts Care (In Minutes): 50
[2022-09-12] MEDS ORDERED: ACETAMINOPHEN 500 MG TAB PO PRN (02:47)
[2022-09-12] MEDS ORDERED: ONDANSETRON 4 MG/2 ML VIAL IV PRN (02:47)
[2022-09-12] MEDS ORDERED: BENZONATATE 100 MG CAP PO PRN (02:47)
[2022-09-12] MEDS ORDERED: NA CHLORIDE 0.9% 1,000 ML IV SCH (03:00)
[2022-09-12 04:32] LABS: Arterial Blood Carboxyhemoglob 1.2 % (0-1.5)
[2022-09-12 04:51] VITALS: BMI 34.8
[2022-09-12] MEDS: ENOXAPARIN 40 MG/0.4 ML SQ SCH (08:31)
[2022-09-12] MEDS ORDERED: ASCORBIC ACID 500 MG TABLET PO SCH (09:00)
[2022-09-12] MEDS ORDERED: METHYLPREDNISOLONE 40 MG INJ IV SCH (09:00)
[2022-09-12] MEDS ORDERED: ZINC SULFATE 220 MG CAP PO SCH (09:00)
--- NOTE | 2022-09-12 10:48 | P.PN ---
Subjective Date of Service: 09/12/22 Chief Complaint: COVID PNA Patient is 72 years of age [place] admitted with coronavirus pneumonia he is feeling better and wants to go home little short of breath he has 2 appointments at the [facility] Review of Systems General: Weakness Respiratory: Cough, Shortness of Breath Physical Examination - Vital Signs Temperature: 96.8 F Blood Pressure: 133/68 Pulse: 86 Respirations: 19 Pulse Ox (%): 93 - Physical Exam General: Alert, Oriented x3 Respiratory: Crackles/rales, Expiratory wheezes Cardiovascular: No edema, Regular rate/rhythm, Normal S1 S2 - Studies Laboratory Data (last 24 hrs) 09/12/22 01:07: PT 12.1, INR 1.10 09/12/22 01:07: WBC 13.70 H, Hgb 11.5 L, Hct 34.7 L, Plt Count 185 09/12/22 01:07: Sodium 135 L, Potassium 4.8, BUN 43 H, Creatinine 1.97 H, Glucose 112 H, Magnesium 1.9, Total Bilirubin 0.5, AST 25, ALT 31, Alkaline Phosphatase 103 Assessment And Plan - Current Problems (Diagnosis) (1) COVID-19 Current Visit: Yes Status: Acute Plan: Patient is 72 years of age admitted with coronavirus pneumonia is mildly hypoxic of air sat is less than 88% plan to arranging for home O2 including some Decadron Physician Review: Patient Assessed, Agree with Above Assessment and Plan
--- NOTE | 2022-09-12 18:35 | RAD REPORT ---
EXAM DESCRIPTION: RAD - Chest Single View - 09/12/2022 1:17 am CLINICAL HISTORY: The patient is 72 years old and is Male; COPD TECHNIQUE: Frontal view of the chest. COMPARISON: August 23, 2022 FINDINGS: Lungs: Scattered interstitial and airspace opacities bilaterally, new compared to the pr ior exam. Pleural space: Unremarkable. No pneumothorax. Heart: Unremarkable. Mediastinum: Unremarkable. Bones/joints: Degenerative changes involving the glenohumeral joints. IMPRESSION: Scattered interstitial and airspace opacities bilaterally, new compared to the prior exa m. Electronically signed by: Ritesh Rodriguez MD 09/12/2022 1:32 AM ROTARY KILN OPERATOR Due to temporary technical issues with the PACS/Fluency reporting system, reports are being signed by the in house radiologists without review as a courtesy to insure prompt reporting. The interpreting radiologist is fully responsible for the content of the report.
--- NOTE | 2022-09-12 18:44 | RAD REPORT ---
EXAM DESCRIPTION: CT - Thorax Carito Wallace - 09/12/2022 6:55 am CLINICAL HISTORY: The patient is 72 years old and is Male; Pneumonia, unresolved TECHNIQUE: Axial computed tomography images of the chest without intravenous contrast. Sagittal an d coronal reformatted images were created and reviewed. This CT exam was performed using one or mor e of the following dose reduction techniques: automated exposure control, adjustment of the mA and/ or kV according to patient size, and/or use of iterative reconstruction technique. COMPARISON: No relevant prior studies available. FINDINGS: LUNGS: Mild diffuse groundglass opacities are present throughout the lungs. The lungs ar e mildly hyperinflated. PLEURAL SPACE: Unremarkable. No pneumothorax. No significant effusion. HEART: Trace pericardial effusion is present. BONES/JOINTS: Multilevel degenerative change of the spine is present. SOFT TISSUES: The soft tissues are normal. VASCULATURE: Unremarkable. No thoracic aortic aneurysm. LYMPH NODES: Unremarkable. No enlarged lymph nodes. IMPRESSION: Diffuse groundglass opacities. Groundglass opacification is a nonspecific finding and no t necessarily indicative of significant pathology. However, in the appropriate clinical setting, pulm onary edema, pneumonia, or atypical infectious process to include viral pneumonitis should be conside red. Electronically signed by: Bridget Armstrong MD 09/12/2022 3:36 AM VACUUM FRAME OPERATOR Due to temporary technical issues with the PACS/Fluency reporting system, reports are being signed by the in house radiologists without review as a courtesy to insure prompt reporting. The interpreting radiologist is fully responsible for the content of the report.
[2022-09-12] MEDS: dexAMETHasone 4 MG TAB PO SCH (19:58)
[2022-09-12] MEDS: IPRATROPIUM BROM 0.5MG/2.5ML NEB PRN (22:00)
[2022-09-12] MEDS: ALBUTEROL 2.5 MG/3 ML NEB SOL NEB PRN (22:00)
[2022-09-13 03:28] LABS: Absolute Lymphocytes (CBC) 0.4 K/uL (0.7-4.9); Hematocrit 36.7 % (39.6-49.0); Lymphocytes % 3.2 % (15.3-44.8); MCV 89.4 fL (80-100); MPV 6.6 fL (7.6-11.3)
[2022-09-13 04:15] LABS: Magnesium 2.5 mg/dL (1.6-2.4); Phosphorus 2.8 mg/dL (2.5-4.9); Potassium 4.2 mmol/L (3.5-5.1); Thyroid Stimulating Hormone 0.067 uIU/mL (0.358-3.740)
[2022-09-13] MEDS: ENOXAPARIN 40 MG/0.4 ML SQ SCH (08:30)
[2022-09-13] MEDS: dexAMETHasone 4 MG TAB PO SCH ×2 (08:30→20:31)
[2022-09-13] MEDS: IPRATROPIUM BROM 0.5MG/2.5ML NEB PRN ×3 (09:54→19:17)
[2022-09-13] MEDS: ALBUTEROL 2.5 MG/3 ML NEB SOL NEB PRN ×3 (09:54→19:17)
--- NOTE | 2022-09-13 20:08 | P.PN ---
Subjective Date of Service: 09/13/22 Chief Complaint: COVID PNA No acute events overnight. He reports persistent shortness of breath and cough; however, he reports that it is gradually improving. He denies any chest pain or palpitations. Review of Systems 10-point ROS is otherwise unremarkable Respiratory: Cough, Dry, Shortness of Breath Physical Examination - Vital Signs Temperature: 97.3 F Blood Pressure: 107/64 Pulse: 98 Respirations: 18 Pulse Ox (%): 90 - Physical Exam General: Alert, In no apparent distress, Oriented x3 HEENT: Atraumatic, Mucous membr. moist/pink, EOMI, Sclerae nonicteric Neck: JVD not distended Respiratory: Diminished, Rhonchi/gurgles Cardiovascular: No edema, Regular rate/rhythm, Normal S1 S2, No gallops, No rubs, No murmurs Gastrointestinal: Normal bowel sounds, Soft and benign, Non-distended, No tenderness, No rebound, No guarding Musculoskeletal: No clubbing Integumentary: No rashes Neurological: Normal speech, Cranial nerves 3-12 intact, Normal affect Assessment And Plan - Plan # Viral Sepsis likely secondary to COVID-19 Pneumonia He met sepsis criteria based on HR > 90 bpm and WBC > 12,000, and the suspected source is COVID-19. - Sepsis order set was initiated - Initial Lactate was 1.2 - Blood cultures drawn - Broad spectrum antibiotics not started - no bacterial infectious source identified - In regards to fluids: - 30 mL/kg of IV fluids was not administered given SBP > 90, MAP > 65, lactic acid < 4 # Acute Hypoxemic Respiratory Failure - likely secondary to COVID-19 Pneumonia - Evaluation thus far: - ABG = pH7.45, PCO2 42.9, PO2 61.0 - Chest x-ray = "scattered interstitial and airspace opacities bilaterally, new compared to the prior exam." - CT chest = "diffuse groundglass opacities. Groundglass opacification is a nonspecific finding and not necessarily indicative of significant pathology. However, in the appropriate clinical setting, pulmonary edema, pneumonia, or atypical infectious process to include viral pneumonitis should be considered." - Management plan: - Pulmonary Medicine consulted and spoke with Dr. Ricci - recommendations appreciated - Bronchodilators and steroids per Pulm - Consulted Respiratory Therapy - Supplemental oxygen to maintain SpO2 > 92% - Encouraged incentive spirometry - Isolation precautions # Coronary Artery Disease s/p PCI # Chronic Obstructive Pulmonary Disease # Chronic Kidney Disease Stage III # Hypertension - Resume home medications once verified # Subclinical Hyperthyroidism - TSH 0.067, Free T4 1.37 - Follow-up with PCP Cullen Arce M.D.
[2022-09-13] MEDS ORDERED: Levofloxacin 750mg IV 750 MG/150 ML BAG IV SCH (22:00)
[2022-09-13] MEDS: MELATONIN 5 MG TABLET PO PRN (23:32)
[2022-09-13] MEDS ORDERED: HYDROCODONE/APAP 5/325 MG TAB PO PRN (23:38)
[2022-09-13] MEDS ORDERED: HOME MED 1 EA UNK (Ipratropium/Albuterol Sulfate [Combivent Respimat 20-100 Mcg] 4 GM Mist IH PRN (23:38)
[2022-09-13] MEDS ORDERED: clonazePAM 0.5 MG TAB PO PRN (23:38)
[2022-09-14] MEDS: ALBUTEROL 2.5 MG/3 ML NEB SOL NEB PRN ×2 (00:25→05:55)
[2022-09-14] MEDS: IPRATROPIUM BROM 0.5MG/2.5ML NEB PRN ×3 (00:25→21:25)
[2022-09-14] MEDS ORDERED: Levofloxacin 750mg IV 750 MG/150 ML BAG IV SCH (03:00)
[2022-09-14 07:05] LABS: Specific Gravity 1.014 (1.005-1.030); Urine Bacteria <20 /HPF (<20); Urine Bilirubin NEGATIVE (Negative); Urine Blood Negative (Negative); Urine Clarity Clear (Clear); Urine Color Colorless (Yellow); Urine Glucose NEGATIVE (Negative); Urine Mucus Slight /HPF (None Seen); Urine Protein 1+ (Negative); Urine RBC <5 /HPF (None Seen); Urine Urobilinogen Normal (Normal)
--- NOTE | 2022-09-14 07:55 | RAD REPORT ---
EXAM DESCRIPTION: [place] Single View09/14/2022 5:29 am CLINICAL HISTORY: Shortness of breath COMPARISON: September 12, 2022 FINDINGS: Mild improvement in the left no significant change in the right pulmonary opacities Heart is normal size IMPRESSION: Mild improvement in the left no significant change in the right pulmonary opacities. This may represe nt pulmonary edema or pneumonia
--- NOTE | 2022-09-14 08:36 | EKG ---
Test Date: 2022-09-12 Test Time: 00:57:16 Wide Area Network Administrator: MADELINE MEASUREMENT RESULTS: Intervals: Rate: 98 [place]: 140 QRSD: 78 QT: 296 QTc: 377 [place]: P: 39 [place]: 140 QRS: 53 T: 39 INTERPRETIVE STATEMENTS: Normal sinus rhythm Normal ECG Compared to ECG 09/10/2022 15:32:31 No significant changes Electronically Signed On 09-14-22 08:32:46 FRUIT STUFFER by Arnaldo De Jesus
[2022-09-14 08:40] LABS: Absolute Lymphocytes (CBC) 0.3 K/uL (0.7-4.9); Hematocrit 36.1 % (39.6-49.0); Lymphocytes % 2.2 % (15.3-44.8); MCV 89.3 fL (80-100); MPV 6.7 fL (7.6-11.3); RBC Red Blood Cell Count 4.04 M/uL (4.33-5.43)
[2022-09-14 08:47] LABS: Potassium 4.1 mmol/L (3.5-5.1)
[2022-09-14] MEDS ORDERED: CHOLECALCIFEROL PO SCH (09:00)
[2022-09-14 09:10] LABS: Blood Morphology Comment NOT SEEN (NOT SEEN); Platelet Estimate ADEQ; White Blood Cell Scan OK (OK)
[2022-09-14] MEDS: DULOXETINE 20 MG CAP PO SCH (09:38)
[2022-09-14] MEDS: CETIRIZINE HCL 5 MG TABLET PO SCH (09:38)
[2022-09-14] MEDS: ISOSORBIDE MONO SR 30 MG TAB PO SCH (09:39)
[2022-09-14] MEDS: ENOXAPARIN 40 MG/0.4 ML SQ SCH (09:39)
[2022-09-14] MEDS: dexAMETHasone 4 MG TAB PO SCH ×2 (09:39→20:59)
[2022-09-14] MEDS: ARIPiprazole 5 MG TAB PO SCH (09:39)
[2022-09-14] MEDS: ASPIRIN EC 81 MG TAB PO SCH ×2 (09:39→20:58)
[2022-09-14] MEDS: AMLODIPINE 10 MG TAB PO SCH (09:39)
[2022-09-14] MEDS ORDERED: ALBUTEROL 2.5 MG/3 ML NEB SOL NEB PRN (16:00)
--- NOTE | 2022-09-14 19:00 | P.PN ---
Subjective Date of Service: 09/14/22 Chief Complaint: COVID PNA No acute events overnight. He reports that his cough has nearly resolved, but he continues to experience shortness of breath. This morning, he has also began experiencing dysuria. He denies any chest pain or palpitations. Review of Systems 10-point ROS is otherwise unremarkable Respiratory: Cough, Shortness of Breath Genitourinary: Dysuria Physical Examination - Vital Signs Temperature: 97.7 F Blood Pressure: 116/77 Pulse: 97 Respirations: 18 Pulse Ox (%): 93 Assessment And Plan - Plan - Physical Exam General: Alert, In no apparent distress, Oriented x3 HEENT: Atraumatic, Mucous membr. moist/pink, EOMI, Sclerae nonicteric Neck: JVD not distended Respiratory: Diminished, Scattered rhonchi/gurgles Cardiovascular: No edema, Regular rate/rhythm, No murmurs Gastrointestinal: Normal bowel sounds, Soft and benign, Non-distended, No tenderness, No rebound, No guarding Musculoskeletal: No clubbing, No flank pain Integumentary: No rashes Neurological: Normal speech, Normal affect # Viral Sepsis likely secondary to COVID-19 Pneumonia He met sepsis criteria based on HR > 90 bpm and WBC > 12,000, and the suspected source is COVID-19. - Sepsis order set was initiated - Initial Lactate was 1.2 - Blood cultures drawn - Broad spectrum antibiotics not started - no bacterial infectious source identified - In regards to fluids: - 30 mL/kg of IV fluids was not administered given SBP > 90, MAP > 65, lactic acid < 4 - Ordered urinalysis given new-onset dysuria # Acute Hypoxemic Respiratory Failure - likely secondary to COVID-19 Pneumonia - Evaluation thus far: - ABG = pH7.45, PCO2 42.9, PO2 61.0 - Chest x-ray = "scattered interstitial and airspace opacities bilaterally, new compared to the prior exam." - CT chest = "diffuse groundglass opacities. Groundglass opacification is a nonspecific finding and not necessarily indicative of significant pathology. However, in the appropriate clinical setting, pulmonary edema, pneumonia, or atypical infectious process to include viral pneumonitis should be considered." - Management plan: - Pulmonary Medicine consulted and spoke with Dr. Ricci - recommendations appreciated - Bronchodilators and steroids per Pulm - Consulted Respiratory Therapy - Supplemental oxygen to maintain SpO2 > 92% - Encouraged incentive spirometry - Isolation precautions # Coronary Artery Disease s/p PCI # Chronic Obstructive Pulmonary Disease # Chronic Kidney Disease Stage III # Hypertension - Resume home medications # Subclinical Hyperthyroidism - TSH 0.067, Free T4 1.37 - Follow-up with PCP Cullen Arce M.D.
[2022-09-14] MEDS: MELATONIN 5 MG TABLET PO PRN (20:58)
[2022-09-14] MEDS: ATORVASTATIN 40 MG TAB PO SCH (20:58)
[2022-09-15 04:34] LABS: Potassium 4.7 mmol/L (3.5-5.1)
[2022-09-15 04:38] LABS: Absolute Lymphocytes (CBC) 0.4 K/uL (0.7-4.9); Hematocrit 32.3 % (39.6-49.0); Lymphocytes % 3.8 % (15.3-44.8); MCV 90.3 fL (80-100); MPV 7.5 fL (7.6-11.3); RBC Red Blood Cell Count 3.58 M/uL (4.33-5.43)
[2022-09-15] MEDS: ASPIRIN EC 81 MG TAB PO SCH ×2 (08:38→21:31)
[2022-09-15] MEDS: AMLODIPINE 10 MG TAB PO SCH (08:38)
[2022-09-15] MEDS: CETIRIZINE HCL 5 MG TABLET PO SCH (08:38)
[2022-09-15] MEDS: dexAMETHasone 4 MG TAB PO SCH ×2 (08:38→21:31)
[2022-09-15] MEDS: ISOSORBIDE MONO SR 30 MG TAB PO SCH (08:38)
[2022-09-15] MEDS: ARIPiprazole 5 MG TAB PO SCH (08:38)
[2022-09-15] MEDS: DULOXETINE 20 MG CAP PO SCH (08:38)
[2022-09-15] MEDS: ENOXAPARIN 40 MG/0.4 ML SQ SCH (08:39)
--- NOTE | 2022-09-15 19:05 | P.PN ---
Subjective Date of Service: 09/15/22 Chief Complaint: COVID PNA No acute events overnight. He reports that his shortness of breath has improved significantly, but he will de-sat to upper 70s on room air. He denies any chest pain or palpitations. Review of Systems 10-point ROS is otherwise unremarkable Respiratory: Cough, Shortness of Breath Physical Examination - Vital Signs Temperature: 96.9 F Blood Pressure: 131/84 Pulse: 83 Respirations: 18 Pulse Ox (%): 95 Assessment And Plan - Plan - Physical Exam General: Alert, In no apparent distress, Oriented x3 HEENT: Atraumatic, Mucous membr. moist/pink, EOMI, Sclerae nonicteric Neck: JVD not distended Respiratory: Diminished, Scattered rhonchi/gurgles Cardiovascular: No edema, Regular rate/rhythm, No murmurs Gastrointestinal: Normal bowel sounds, Soft and benign, Non-distended, No tenderness, No rebound, No guarding Musculoskeletal: No clubbing, No flank pain Integumentary: No rashes Neurological: Normal speech, Normal affect # Viral Sepsis likely secondary to COVID-19 Pneumonia He met sepsis criteria based on HR > 90 bpm and WBC > 12,000, and the suspected source is COVID-19. - Sepsis order set was initiated - Initial Lactate was 1.2 - Blood cultures drawn - Broad spectrum antibiotics not started - no bacterial infectious source identified - In regards to fluids: - 30 mL/kg of IV fluids was not administered given SBP > 90, MAP > 65, lactic acid < 4 # Acute Hypoxemic Respiratory Failure - likely secondary to COVID-19 Pneumonia - Evaluation thus far: - ABG = pH7.45, PCO2 42.9, PO2 61.0 - Chest x-ray = "scattered interstitial and airspace opacities bilaterally, new compared to the prior exam." - CT chest = "diffuse groundglass opacities. Groundglass opacification is a nonspecific finding and not necessarily indicative of significant pathology. However, in the appropriate clinical setting, pulmonary edema, pneumonia, or atypical infectious process to include viral pneumonitis should be considered." - Management plan: - Pulmonary Medicine consulted and spoke with Dr. Ricci - recommendations appreciated - Bronchodilators and steroids per Pulm - Consulted Respiratory Therapy - Supplemental oxygen to maintain SpO2 > 92% - Wean oxygen as tolerated - Encouraged incentive spirometry - Isolation precautions # Coronary Artery Disease s/p PCI # Chronic Obstructive Pulmonary Disease # Chronic Kidney Disease Stage III # Hypertension - Resume home medications # Subclinical Hyperthyroidism - TSH 0.067, Free T4 1.37 - Follow-up with PCP Cullen Arce M.D.
[2022-09-15] MEDS: ATORVASTATIN 40 MG TAB PO SCH (21:30)
[2022-09-15 21:35] VITALS: O2SAT 93
[2022-09-16 04:28] LABS: Potassium 4.6 mmol/L (3.5-5.1)
[2022-09-16 04:32] VITALS: BP 146/81; TEMP 96.9
--- NOTE | 2022-09-16 07:16 | P.DS ---
Admission Date: 09/12/22 Discharge Date: 09/16/22 Disposition: ROUTINE DISCHARGE Discharge Condition: GOOD Reason for Admission: COVID PNA Consultations: 1. Pulmonary Medicine Hospital Course: DIAGNOSES: # Viral Sepsis likely secondary to COVID-19 Pneumonia # Acute Hypoxemic Respiratory Failure - likely secondary to COVID-19 Pneumonia # Coronary Artery Disease s/p PCI # Chronic Obstructive Pulmonary Disease # Chronic Kidney Disease Stage III # Hypertension # Subclinical Hyperthyroidism HOSPITAL COURSE: Mr. Taj Perez is a 72 year old male with a past medical history significant for coronary artery disease s/p PCI, chronic obstructive pulmonary disease, chronic kidney disease stage III, and hypertension who was admitted to the [facility] on 09/12/2022 for shortness of breath. He was admitted to the Medicine service. Upon further evaluation, he was found to have viral sepsis and acute hypoxemic respiratory failure secondary to COVID- 19 pneumonia. Pulmonary Medicine was consulted and he was evaluated by Dr. Ricci. He was treated with bronchodilators and steroids, and over his hospitalization, his symptoms improved significantly. Despite these treatments, he continued to desaturate while on room air. He did well with oxygen and was able to maintain adequate saturations at both rest and with ambulation. Given hi s hypoxia, he qualified for home oxygen. With the assistance of case management, this was arranged for him. This morning, he stated that his symptoms have completely resolved and that he experiences no shortness of breath while on oxygen. He states that he would like to be discharged home today given that he no longer has symptoms. I spoke with Dr. Ricci, who has cleared him for discharge home with dexamethasone and outpatient follow-up. Incidentally, he was found to have subclinical hyperthyroidism. He was advised to follow this up with his PCP. He verbalized understanding and agreed to make this appointment. On 09/16/2022, he was seen on morning rounds and deemed medically stable for discharge. He was discharged with instructions to schedule follow-up appointments with his PCP ([facility]) and with Pulmonary Medicine (Dr. Ricci). He was provided prescriptions for dexamethasone and benzonatate. He was given the opportunity to ask questions and reported no further questions. Fu rthermore, all questions were answered to the best of my ability. A copy of this discharge summary will be sent to the above providers to facilitate continuity of care. Today, I personally spent 20 minutes on his case, of which greater than 50% of the time was spent in patient education, counseling, and coordination of care as described above. - Physical Exam General: Alert, In no apparent distress, Oriented x3 HEENT: Atraumatic, Mucous membr. moist/pink, EOMI, Sclerae nonicteric Neck: JVD not distended Respiratory: Diminished, Faint scattered rhonchi/gurgles Cardiovascular: No edema, Regular rate/rhythm, No murmurs Gastrointestinal: Soft and benign, Non-distended, No tenderness, No rebound, No guarding Musculoskeletal: No clubbing, No flank pain Integumentary: No rashes Neurological: Normal speech, Normal affect Vital Signs/Physical Exam: Temp Pulse Resp BP Pulse Ox 96.9 F 90 18 146/81 H 91 09/16/22 04:00 09/16/22 04:00 09/16/22 04:00 09/16/22 04:00 09/16/22 04:00 Laboratory Data at Discharge: WBC 9.70 K/uL (4.3-10.9) 09/15/22 03:42 Hgb 11.0 g/dL (13.6-17.9) L 09/15/22 03:42 Hct 32.3 % (39.6-49.0) L 09/15/22 03:42 Plt Count 219 K/uL (152-406) 09/15/22 03:42 PT 12.1 SECONDS (9.5-12.5) 09/12/22 01:07 INR 1.10 09/12/22 01:07 Sodium 138 mmol/L (136-145) 09/16/22 03:49 Potassium 4.6 mmol/L (3.5-5.1) 09/16/22 03:49 BUN 54 mg/dL (7-18) H 09/16/22 03:49 Creatinine 1.75 mg/dL (0.70-1.30) H 09/16/22 03:49 Glucose 141 mg/dL (74-106) H 09/16/22 03:49 Phosphorus 2.8 mg/dL (2.5-4.9) 09/13/22 03:13 Magnesium 2.5 mg/dL (1.6-2.4) H 09/13/22 03:13 Total Bilirubin 0.5 mg/dL (0.2-1.0) 09/12/22 01:07 AST 25 U/L (15-37) 09/12/22 01:07 ALT 31 U/L (16-61) 09/12/22 01:07 Alkaline Phosphatase 103 U/L (45-117) 09/12/22 01:07 Triglycerides 107 mg/dL (<150) 09/13/22 03:13 Cholesterol 122 mg/dL (<200) 09/13/22 03:13 HDL Cholesterol 31 mg/dL (40-60) L 09/13/22 03:13 Cholesterol/HDL Ratio 3.94 09/13/22 03:13 Home Medications: RX: Amlodipine [Norvasc*] 5 mg PO DAILY 09/26/21 RX: Ipratropium/Albuterol Sulfate [Combivent Respimat 20-100 Mcg] 12 puff IH Q6H PRN 09/26/21 RX: Isosorbide Mononitrate [Isosorbide Mononitrate ER] 60 mg PO DAILY 09/26/21 Cholecalciferol 50 Mg Vit D3 2000 Unit 1 tab PO DAILY 08/29/22 RX: ARIPiprazole [Aripiprazole] 0.5 tab PO DAILY 08/29/22 RX: Aspirin [Aspirin EC] 81 mg PO BID 08/29/22 RX: Atorvastatin Calcium [Lipitor] 80 mg PO BEDTIME 08/29/22 RX: Cetirizine HCl 1 tab PO DAILY 08/29/22 RX: Duloxetine HCl 4 cap PO DAILY 08/29/22 RX: Hydrocodone Bit/Acetaminophen [Hydrocodon-Acetaminophen 5-325] 1 tab PO Q6H PRN 08/29/22 clonazePAM [Klonopin] 0.5 mg PO BID PRN #30 08/29/22 RX: dexAMETHasone [Decadron*] 4 mg PO BID 7 Days #14 tab 09/12/22 RX: Benzonatate [Tessalon Perle*] 100 mg PO TID PRN 7 Days #20 cap 09/16/22 New Medications: RX: dexAMETHasone [Decadron*] 4 mg PO BID 7 Days #14 tab RX: Benzonatate [Tessalon Perle*] 100 mg PO TID PRN 7 Days #20 cap PRN Reason: Cough Physician Discharge Instructions: 1. Please attend your PCP follow-up appointment at the [facility] for today 2. Please call and schedule a follow-up appointment with Pulmonology (Dr. Ricci) in 3-5 days Diet: AHA Activity: Ad sanaz Followup: Unknown,U [Primary Care Provider] - Emre Ricci MD [ACTIVE - CAN ADMIT] - Time spent managing pt's care (in minutes): 20
== END 2022-09-16 08:21 | disposition home health service (06) | DRG 871 ==
LOC: ER 00:25 → ERHOLD 02:25 → 4TH 03:34
PROVIDERS: ADMIT Internal Medicine Sleep Medicine; ATTEND Internal Medicine
DX: A41.89 Other specified sepsis (principal); J12.82 Pneumonia due to coronavirus disease 2019; U07.1 COVID-19; J96.01 Acute respiratory failure with hypoxia; J43.9 Emphysema, unspecified; I12.9 Hypertensive chronic kidney disease with stage 1 through stage 4 chronic kidney disease, or unspecified chronic kidney disease; N18.32 Chronic kidney disease, stage 3b; D63.1 Anemia in chronic kidney disease; E05.90 Thyrotoxicosis, unspecified without thyrotoxic crisis or storm; I25.10 Atherosclerotic heart disease of native coronary artery without angina pectoris; I25.2 Old myocardial infarction; Z88.8 Allergy status to other drugs, medicaments and biological substances; Z88.5 Allergy status to narcotic agent; Z95.5 Presence of coronary angioplasty implant and graft; Z79.02 Long term (current) use of antithrombotics/antiplatelets; Z79.82 Long term (current) use of aspirin; Z79.52 Long term (current) use of systemic steroids; Z96.653 Presence of artificial knee joint, bilateral; Z87.891 Personal history of nicotine dependence; Z79.899 Other long term (current) drug therapy
CPT/HCPCS: 0240U; 36415; 71045; 71250; 80048; 80061; 80076; 81001; 82805; 82947; 83605; 83735; 83880; 84100; 84439; 84443; 84484; 85025; 85610; 87040; 93005; 94010; 94760; 99285; J1650; J2920; J2930; J3370; J3475; J7050; J7613; J7614; J7644; J8540

== ENCOUNTER 2022-09-17 17:59 | Emergency (ER) | payer OTHER ==
--- OUTSIDE RECORDS SUMMARY | 2022-09-17 18:03 | XMS REPORT | Continuity of Care Document ---
:1950 Author Organization [facility] t Address [address] [place] [address] Care Team Providers Name Role Phone JACKIE VERNON Attending Clinician Unavailable ELLIOTT WANG Attending Clinician Unavailable Harriet-Mbayo_A_AH Attending Clinician Unavailable Harriet-Mbayo_A_AH Admitting Clinician Unavailable Payers Payer Name Policy Type Policy Number Effective Date Expiration Date S kulwinder [employer] MEDICARE ADV [id number] 2020 00:00:00 MEDICARE PART A [id number] 2020 \T\ B 00:00:00 [facility] [id number] 2019 [employer] 00:00:00 (MEDICARE REPLACEMENT/ADVANT AGE - HMO) Problems This patient has no known problems. Allergies, Adverse Reactions, Alerts Allergy Allergy Status Severity Reaction(s) Onset Inactive Treating Comm ents Source Name Type Date Date Clinician GABAPENT DRUG Active Unknown-Cmnt Un davina [facility] 04-20 ity of 00:00: [address] IBUPROFE DRUG Active Unknown-Cmnt Un davina [facility] 04-20 ity of 00:00: [address] RISPERID DRUG Active EP Effects Univ ers ONE [facility] 04-20 ity of 00:00: [address] Medications This patient has no known medications. Procedures This patient has no known procedures. Encounters Start End Encounter Admission Attending Care Care Encounter Source Date/Time Date/Time Type Type Clinicians Facility Department ID 2020-06-25 2020-06-25 Outpatient [facility] [id number] Univers 00:00:00 00:00:[address] [facility] 2020-06-20 2020-06-20 Outpatient [facility] [id number] Univers 09:00:00 09:00:[address] [facility] 2020-05-02 2020-05-02 Outpatient Merced WANG, [facility] [id number] Univers 08:30:00 08:30:[address] [facility] 2019-11-22 2019-11-22 Outpatient Harriet-Mbayo VFP VFP [phone] [facility] 10:39:00 10:39:00 _A_ [id number] Family Practic e 2019-11-22 2019-11-22 Outpatient Harriet-Mbayo VFP VFP [phone] [facility] 10:39:00 10:39:00 _A_ [id number] Family Practic e Results This patient has no known results.
[2022-09-17] MEDS ORDERED: TRAMADOL HCL 50 MG TAB ONE (18:50)
--- NOTE | 2022-09-17 20:00 | RAD REPORT ---
EXAM DESCRIPTION: RAD - Knee Left 3 View - 09/17/2022 7:48 pm CLINICAL HISTORY: PAIN COMPARISON: Knee Left 3 View dated 09/18/2021 FINDINGS: No fracture, dislocation or periosteal reaction.Left total knee prosthesis in place. No ra diographic evidence for loosening. No measurable joint effusion. There is spurring at the quadriceps attachment to the patella. Spurring is seen along the articular margins of the patella. No soft tissu e abnormality. IMPRESSION: Left total knee prosthesis in place with no acute bone or implant finding.
--- NOTE | 2022-09-17 20:11 | ER ---
Nurse's Notes [facility] Name: Taj Perez Age: 72 yrs Sex: Male : 1950 Arrival Date: 09/17/2022 Time: 18:06 Bed 12 Private MD: Diagnosis: Pain in left knee Presentation: 09/17 18:17 Chief complaint: Patient states: L knee pain that has been ongoing, is worse after ss falling out of chair today. Pt had a knee replacement July of last year. Coronavirus screen: Client denies travel out of the [place] in the last 14 days. Ebola Screen: Patient denies exposure to infectious person. Patient denies travel to an Ebola-affected area in the 21 days before illness onset. Initial Sepsis Screen: Does the patient meet any 2 criteria? No. Patient's initial sepsis screen is negative. Does the patient have a suspected source of infection? No. Patient's initial sepsis screen is negative. Risk Assessment: Do you want to hurt yourself or someone else? Patient reports no desire to harm self or others. Onset of symptoms is unknown. Care prior to arrival: No medications given, no procedures performed. 18:17 Method Of Arrival: EMS: [facility] ss 18:41 Acuity: TRISH 4 kb3 Triage Assessment: 18:41 General: Appears in no apparent distress. Behavior is calm, cooperative. Pain: kb3 Complains of pain in left knee Pain does not radiate. Pain currently is 8 out of 10 on a pain scale. Quality of pain is described as throbbing. Historical: - Allergies: 18:19 Ibuprofen; ss 18:19 Oxycodone HCl; ss 18:19 Risperdal; ss - PMHx: 18:19 Chronic obstructive lung disease; Congestive heart failure; Hypertensive disorder; ss Kidney stones; Myocardial infarction; psychiatric; spinal fusion; - PSHx: 18:19 bilateral knee replacement; heart stent/cath; ss - Immunization history:: Adult Immunizations up to date, Client reports receiving the 2nd dose of the Covid vaccine, Last tetanus immunization: up to date. - Social history:: Smoking status: Patient denies any tobacco usage or history of. Screenin:13 [facility] ED Fall Risk Assessment (Adult) History of falling in the last 3 months, em6 including since admission Yes- single mechanical fall (1 pt) Confusion or Disorientation No (0 pts) Intoxicated or Sedated No (0 pts) Impaired Gait No (0 pts) Mobility Assist Device Used No (0 pt) Altered Elimination No (0 pt) Score/Fall Risk Level 0 - 2 = Low Risk Oriented to surroundings, Maintained a safe environment, Educated pt \T\ family on fall prevention, incl call for assistance when getting out of bed, Assessed \T\ reinforced patient's understanding of fall precautions, Provided non-skid footwear, Hourly rounding (assess needs \T\ fall precautionary measures) done, Used ambulatory aids as needed (educated on \T\ assisted with), Used gait belt as appropriate. Abuse screen: Denies threats or abuse. Abuse screen: Denies threats or abuse. Nutritional screening: No deficits noted. Tuberculosis screening: No symptoms or risk factors identified. Assessment: 20:15 General: Appears in no apparent distress. Behavior is cooperative. Pain: Complains of em6 pain in left leg and left knee Pain does not radiate. Pain currently is 2 out of 10 on a pain scale. Neuro: Orr Agitation-Sedation Scale (RASS): 0 - Alert and Calm. Cardiovascular: Patient's skin is warm and dry. Respiratory: Airway is patent Respiratory effort is even, unlabored, Respiratory pattern is regular, symmetrical. GI: No signs and/or symptoms were reported involving the gastrointestinal system. : No signs and/or symptoms were reported regarding the genitourinary system. EENT: No signs and/or symptoms were reported regarding the EENT system. Derm: No signs and/or symptoms reported regarding the dermatologic system. Musculoskeletal: Circulation, motion, and sensation intact. Range of motion: intact in all extremities. Vital Signs: 18:41 BP 134 / 68; Pulse 99; Resp 18; Temp 98.7; Pulse Ox 96% ; Weight 112.04 kg; Height 5 kb3 ft. 9 in. (175.26 cm); Pain 8/10; 20:14 BP 125 / 99; Pulse 89; Resp 18; Pulse Ox 96% on 3 lpm NC; em6 18:41 Body Mass Index 36.48 (112.04 kg, 175.26 cm) kb3 ED Course: 18:06 Patient arrived in ED. eb 18:17 Miri Solomon FNP-C is PHCP. kb 18:17 Lucas Vidal DO is Attending Physician. kb 18:19 Arm band placed on right wrist. ss 18:43 Triage completed. kb3 19:50 Knee Left 3 View XRAY In Process Unspecified. EDMS 20:13 Valerie Holguin, RN is Primary Nurse. em6 20:14 Bed in low position. Call light in reach. Side rails up X 1. Pulse ox on. NIBP on. Warm em6 blanket given. 20:14 No provider procedures requiring assistance completed. Patient did not have IV access em6 during this emergency room visit. Administered Medications: 18:49 Drug: traMADol 50 mg Route: PO; kb3 20:15 Follow up: Response: No adverse reaction; RASS: Alert and Calm (0) em6 Medication: 20:14 VIS not applicable for this client. em6 Outcome: 20:10 Discharge ordered by . kb 20:15 Discharged to home ambulatory. em6 20:15 Condition: stable 20:15 Discharge instructions given to patient, Instructed on discharge instructions, follow up and referral plans. Demonstrated understanding of instructions, follow-up care. 20:24 Patient left the ED. em6 Signatures: Dispatcher [employer] EDMS Miri Solomon, MEDICAL MALPRACTICE PARALEGAL-C MEDICAL MALPRACTICE PARALEGAL-Sugey Dunn, ELBERT RN Shira Arango Erika, RN RN em6 Kiya Diaz, RN RN kb3
--- NOTE | 2022-09-17 20:11 | EDPHYS ---
Physician Documentation [facility] Name: Taj Perez Age: 72 yrs Sex: Male : 1950 Arrival Date: 09/17/2022 Time: 18:06 Bed 12 Private MD: ED Physician Lucas Vidal HPI: 09/17 21:05 This 72 yrs old Male presents to ER via EMS with complaints of Knee Pain. kb 21:05 The patient presents with pain, that is acute. The complaints affect the left knee. kb Context: resulted from the patient falling, while walking, the patient is able to ambulate. Onset: The symptoms/episode began/occurred just prior to arrival. Modifying factors: The symptoms are alleviated by nothing. the symptoms are aggravated by movement, weight bearing. Associated signs and symptoms: The patient has no apparent associated signs or symptoms. Treatment prior to arrival includes: no previous treatment. Severity of symptoms: At their worst the symptoms were mild, moderate, in the emergency department the symptoms are unchanged. The patient has not experienced similar symptoms in the past. The patient has not recently seen a physician. Patient reports he tripped over his oxygen tubing and fell onto left knee. Complains of left knee pain only.. Historical: - Allergies: 18:19 Ibuprofen; ss 18:19 Oxycodone HCl; ss 18:19 Risperdal; ss - PMHx: 18:19 Chronic obstructive lung disease; Congestive heart failure; Hypertensive disorder; ss Kidney stones; Myocardial infarction; psychiatric; spinal fusion; - PSHx: 18:19 bilateral knee replacement; heart stent/cath; ss - Immunization history:: Adult Immunizations up to date, Client reports receiving the 2nd dose of the Covid vaccine, Last tetanus immunization: up to date. - Social history:: Smoking status: Patient denies any tobacco usage or history of. ROS: 21:04 Constitutional: Negative for fever, chills, and weight loss. kb 21:04 MS/extremity: Positive for pain, of the left knee. 21:04 All other systems are negative. Exam: 21:04 Constitutional: This is a well developed, well nourished patient who is awake, alert, kb and in no acute distress. Head/Face: Normocephalic, atraumatic. ENT: Moist Mucous membranes Cardiovascular: Regular rate and rhythm with a normal S1 and S2. No gallops, murmurs, or rubs. No pulse deficits. Respiratory: Respirations even and unlabored. No increased work of breathing. Talking in full sentences Skin: Warm, dry with normal turgor. Normal color. Neuro: Awake and alert, GCS 15, oriented to person, place, time, and situation. Moves all extremities. Normal gait. Psych: Awake, alert, with orientation to person, place and time. Behavior, mood, and affect are within normal limits. 21:04 Musculoskeletal/extremity: Extremities: grossly normal except: noted in the left knee: pain, ROM: intact in all extremities, Circulation is intact in all extremities. Sensation intact. Weight bearing: can bear weight with assistance only. Vital Signs: 18:41 BP 134 / 68; Pulse 99; Resp 18; Temp 98.7; Pulse Ox 96% ; Weight 112.04 kg; Height 5 kb3 ft. 9 in. (175.26 cm); Pain 8/10; 20:14 BP 125 / 99; Pulse 89; Resp 18; Pulse Ox 96% on 3 lpm NC; em6 18:41 Body Mass Index 36.48 (112.04 kg, 175.26 cm) kb3 MDM: 18:17 Patient medically screened. kb 21:02 Data reviewed: vital signs, nurses notes. Data interpreted: Pulse oximetry: on room air kb is 96 %. Interpretation: normal. Counseling: I had a detailed discussion with the patient and/or guardian regarding: the historical points, exam findings, and any diagnostic results supporting the discharge/admit diagnosis, radiology results, the need for outpatient follow up, a family practitioner, to return to the emergency department if symptoms worsen or persist or if there are any questions or concerns that arise at home. 21:02 Differential diagnosis: closed fracture, contusion. ED course: Independent kb interpretation of the following tests in the emergency department: X-ray of the knee, no acute findings; I considered the following discharge prescriptions or medication management in the emergency department: Prescription analgesics considered but patient will take [id number] pain medications; History obtained from: Patient . 09/17 18:44 Order name: Knee Left 3 View XRAY; Complete Time: 20:05 kb3 Administered Medications: 18:49 Drug: traMADol 50 mg Route: PO; kb3 20:15 Follow up: Response: No adverse reaction; RASS: Alert and Calm (0) em6 Disposition Summary: 09/17/22 20:10 Discharge Ordered Location: Home kb Condition: Stable kb Diagnosis - Pain in left knee kb Followup: kb - With: Emergency Department - When: As needed - Reason: Worsening of condition Followup: kb - With: Private Physician - When: 2 - 3 days - Reason: Recheck today's complaints, Continuance of care, Re-evaluation by your physician Discharge Instructions: - Discharge Summary Sheet kb - Musculoskeletal Pain kb - Acute Knee Pain, Adult, Utly-io-Olhp kb Forms: - Medication Reconciliation Form kb - Thank You Letter kb - Antibiotic Education kb - Prescription Opioid Use kb Addendum: 09/19/2022 12:38 Co-signature as Attending Physician, Lucas WEAVER was immediately available on-site m s3 in the Emergency Department for consultation in the care of the patient.. Signatures: Dispatcher [employer] EDMS Miri Solomon, PROCESSOR SOLID PROPELLANT-C PROCESSOR SOLID PROPELLANT-Madanb Sugey Weston, RN RN ss Lucas Vidal DO DO ms3 Valerie Holguin, RN RN em6 Kiya Diaz, RN RN kb3
[2022-09-17 20:34] VITALS: TEMP 98.7; O2SAT 96
[2022-09-17 20:35] VITALS: BP 125/99
== END 2022-09-17 20:24 | disposition home or self-care (01) ==
LOC: ER 17:59
DX: M25.562 Pain in left knee (principal); Z96.652 Presence of left artificial knee joint
CPT/HCPCS: 99284

== ENCOUNTER 2022-09-19 07:25 | Emergency (ER) | payer OTHER ==
--- OUTSIDE RECORDS SUMMARY | 2022-09-19 07:30 | XMS REPORT | Continuity of Care Document ---
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 Allergies, Adverse Reactions, Alerts Allergy Allergy Status Severity Reaction(s) Onset Inactive Treating Comm ents Source Name Type Date Date Clinician GABAPENT DRUG Active Unknown-Cmnt Un davina [facility] 04-20 ity of 00:00: [address] IBUPROFE DRUG Active Unknown-Cmnt Un davina N [facility] 04-20 ity of 00:00: [address] RISPERID DRUG Active EP Effects Univ ers [facility] 04-20 ity of 00:00: [address] Medications This patient has no known medications. Procedures This patient has no known procedures. Encounters Start End Encounter Admission Attending Care Care Encounter Source Date/Time Date/Time Type Type Clinicians Facility Department ID 2020-06-25 2020-06-25 Outpatient [facility] [id number] Univers 00:00:00 00:00:00 JACKIE ity [facility] 2020-06-20 2020-06-20 Outpatient [facility] [id number] Univers 09:00:00 09:00:00 JACKIE doni [facility] 2020-05-02 2020-05-02 Outpatient [facility] WANG, [facility] [id number] Univers 08:30:00 08:30:00 ELLIOTT danilo [facility] 2019-11-22 2019-11-22 Outpatient Harriet-Mbayo VFP VFP [phone] [facility] 10:39:00 10:39:00 _A_ [id number] Family Practic e 2019-11-22 2019-11-22 Outpatient Harriet-Mbayo VFP VFP [phone] [facility] 10:39:00 10:39:00 _A_ [id number] Family Practic e Results This patient has no known results.
[2022-09-19] MEDS ORDERED: TRAMADOL HCL 50 MG TAB ONE (08:33)
--- NOTE | 2022-09-19 09:15 | RAD REPORT ---
EXAM DESCRIPTION: RAD - Knee Left 3 View - 09/19/2022 9:05 am CLINICAL HISTORY: PAIN COMPARISON: Knee Left 3 View dated 09/17/2022; Knee Left 3 View dated 09/18/2021 FINDINGS: There is a left total knee arthroplasty present. No hardware loosening or infection seen. Small joint effusion.
--- NOTE | 2022-09-19 09:21 | EDPHYS ---
Physician Documentation [facility] Name: Taj Perez Age: 72 yrs Sex: Male : 1950 Arrival Date: 09/19/2022 Time: 07:27 Bed 13 Private MD: ED Physician Max Quezada HPI: 09/19 07:50 This 72 yrs old Male presents to ER via EMS with complaints of Knee Pain. rn 07:50 The patient presents with an injury, pain. The complaints affect the left knee. Onset: rn The symptoms/episode began/occurred just prior to arrival. Modifying factors: The symptoms are alleviated by remaining still, the symptoms are aggravated by movement. Associated signs and symptoms: Pertinent negatives fever, numbness, tingling, warmth, weakness. Severity of symptoms: At their worst the symptoms were mild, in the emergency department the symptoms are unchanged. The patient has experienced similar episodes in the past. The patient has been recently seen at the [facility] Emergency Department. Pt reports fell today, tripped, landed on left knee and hit it on carpet, able to get up and ambulate after fall. NO other injuries. Had knee replacement this past year. . Historical: - Allergies: 07:29 Ibuprofen; bp 07:29 Oxycodone HCl; bp 07:29 Risperdal; bp - PMHx: 07:29 Chronic obstructive lung disease; Congestive heart failure; Hypertensive disorder; bp Kidney stones; Myocardial infarction; psychiatric; spinal fusion; - PSHx: 07:29 bilateral knee replacement; heart stent/cath; bp - Immunization history:: Adult Immunizations up to date. - Social history:: Smoking status: unknown. - Family history:: not pertinent. - Hospitalizations: : No recent hospitalization is reported. ROS: 07:50 Constitutional: Negative for fever, chills, and weight loss, Eyes: Negative for injury, rn pain, redness, and discharge, Neck: Negative for injury, pain, and swelling, Cardiovascular: Negative for chest pain, palpitations, and edema, Respiratory: Negative for shortness of breath, cough, wheezing, and pleuritic chest pain, Abdomen/GI: Negative for abdominal pain, nausea, vomiting, diarrhea, and constipation, Back: Negative for injury and pain, : Negative for injury, bleeding, discharge, and swelling, MS/Extremity: + left knee injury and pain Skin: Negative for injury, rash, and discoloration, Neuro: Negative for headache, weakness, numbness, tingling, and seizure. Exam: 07:50 Constitutional: This is a well developed, well nourished patient who is awake, alert, rn and in no acute distress. Neck: NO midline cervical tenderness Cardiovascular: Regular rate and rhythm. No pulse deficits. Back: No spinal tenderness. No costovertebral tenderness. Full range of motion. Skin: Warm, dry with normal turgor. Normal color with no rashes, no lesions, and no evidence of cellulitis. MS/ Extremity: Pulses equal, no cyanosis. Neurovascular intact. Full, normal range of motion. Equal circumference. Neuro: Awake and alert, GCS 15 Vital Signs: 07:27 BP 120 / 70; Pulse 85; Resp 16; Temp 98; Pulse Ox 96% on 3 lpm NC; bp 08:30 BP 139 / 85; Pulse 82; Resp 20; Temp 98.8(O); Pulse Ox 96% on 3 lpm NC; bp MDM: 07:28 Patient medically screened. rn 08:05 Differential diagnosis: closed fracture, contusion. rn 09:18 Data reviewed: vital signs, nurses notes, radiologic studies, plain films. Test rn interpretation: by ED physician or midlevel provider: plain radiologic studies, Independent interpretation of xray by me: xray left knee without acute abnormality, no fracture of bone or hardware.. Counseling: I had a detailed discussion with the patient and/or guardian regarding: the historical points, exam findings, and any diagnostic results supporting the discharge/admit diagnosis, radiology results, the need for outpatient follow up, to return to the emergency department if symptoms worsen or persist or if there are any questions or concerns that arise at home. Response to treatment: the patient's symptoms have mildly improved after treatment, and as a result, I will discharge patient. Special discussion: I discussed with the patient/guardian in detail that at this point there is no indication for admission to the hospital. It is understood, however, that if the symptoms persist or worsen the patient needs to return immediately for re-evaluation. 09/19 07:44 Order name: XRAY Knee LEFT 3 view; Complete Time: 09:18 rn Administered Medications: 08:31 Drug: traMADol 50 mg Route: PO; bp 08:57 Follow up: Response: No adverse reaction bp Disposition Summary: 09/19/22 09:19 Discharge Ordered Location: Home rn Problem: new rn Symptoms: have improved rn Condition: Stable rn Diagnosis - Contusion of left knee rn Followup: rn - With: Private Physician - When: As needed - Reason: Recheck today's complaints, Re-evaluation by your physician Discharge Instructions: - Discharge Summary Sheet rn - Contusion rn - Acute Knee Pain, Adult rn Forms: - Medication Reconciliation Form rn - Thank You Letter rn - Antibiotic golf tournament consultant - Prescription Opioid Use rn Signatures: Dispatcher [employer] EDMax Hannon MD MD rn Quique Burch, RN RN bp
--- NOTE | 2022-09-19 09:21 | ER ---
Nurse's Notes [facility] Name: Taj Perez Age: 72 yrs Sex: Male : 1950 Arrival Date: 09/19/2022 Time: 07:27 Bed 13 Private MD: Diagnosis: Contusion of left knee Presentation: 09/19 07:27 Chief complaint: EMS states: MECHANICAL FALL TO LEFT KNEE, NO APPARENT TRAUMA. bp Coronavirus screen: At this time, the client does not indicate any symptoms associated with coronavirus-19. Ebola Screen: No symptoms or risks identified at this time. Initial Sepsis Screen: Does the patient meet any 2 criteria? No. Patient's initial sepsis screen is negative. Does the patient have a suspected source of infection? No. Patient's initial sepsis screen is negative. Risk Assessment: Do you want to hurt yourself or someone else? Patient reports no desire to harm self or others. Onset of symptoms was September 19, 2022 at 07:00. 07:27 Method Of Arrival: EMS: [facility] bp 07:27 Acuity: TRISH 3 bp Triage Assessment: 07:29 General: Appears in no apparent distress. Behavior is calm, cooperative, appropriate bp for age. Pain: Complains of pain in left knee. EENT: No deficits noted. Neuro: No deficits noted. Cardiovascular: No deficits noted. Respiratory: No deficits noted. GI: No signs and/or symptoms were reported involving the gastrointestinal system. : No signs and/or symptoms were reported regarding the genitourinary system. Derm: No deficits noted. Musculoskeletal: Reports pain in left knee. Historical: - Allergies: 07:29 Ibuprofen; bp 07:29 Oxycodone HCl; bp 07:29 Risperdal; bp - PMHx: 07:29 Chronic obstructive lung disease; Congestive heart failure; Hypertensive disorder; bp Kidney stones; Myocardial infarction; psychiatric; spinal fusion; - PSHx: 07:29 bilateral knee replacement; heart stent/cath; bp - Immunization history:: Adult Immunizations up to date. - Social history:: Smoking status: unknown. - Family history:: not pertinent. - Hospitalizations: : No recent hospitalization is reported. Screenin:30 [facility] ED Fall Risk Assessment (Adult) History of falling in the last 3 months, bp including since admission Yes- single mechanical fall (1 pt) Confusion or Disorientation No (0 pts) Intoxicated or Sedated No (0 pts) Impaired Gait No (0 pts) Mobility Assist Device Used No (0 pt) Altered Elimination No (0 pt). Abuse screen: Denies threats or abuse. Denies injuries from another. Nutritional screening: No deficits noted. Tuberculosis screening: No symptoms or risk factors identified. Assessment: 07:30 General: SEE TRIAGE NOTE. bp 08:31 Reassessment: No changes from previously documented assessment. Patient and/or family bp updated on plan of care and expected duration. Pain level reassessed. 09:45 Reassessment: DC ON HOLD PENDING FAMILY FOR TRANSPORT, PT ON CONTINUOUS O2. bp Vital Signs: 07:27 BP 120 / 70; Pulse 85; Resp 16; Temp 98; Pulse Ox 96% on 3 lpm NC; bp 08:30 BP 139 / 85; Pulse 82; Resp 20; Temp 98.8(O); Pulse Ox 96% on 3 lpm NC; bp ED Course: 07:27 Patient arrived in ED. bp 07:28 Max Quezada MD is Attending Physician. rn 07:29 Triage completed. bp 07:29 Arm band placed on. bp 07:30 Patient has correct armband on for positive identification. Bed in low position. Call bp light in reach. Side rails up X2. 08:31 Quique Burch, RN is Primary Nurse. bp 09:07 XRAY Knee LEFT 3 view In Process Unspecified. EDMS 09:45 No provider procedures requiring assistance completed. Patient did not have IV access bp during this emergency room visit. Administered Medications: 08:31 Drug: traMADol 50 mg Route: PO; bp 08:57 Follow up: Response: No adverse reaction bp Medication: 07:30 VIS not applicable for this client. bp Outcome: 09:19 Discharge ordered by . rn 09:45 Discharged to home via wheelchair, with family. bp 09:45 Condition: stable 09:45 Discharge instructions given to patient, Instructed on discharge instructions, follow up and referral plans. Demonstrated understanding of instructions, follow-up care. 09:46 Patient left the ED. bp Signatures: Dispatcher [employer] EDMS Carl Lr tm3 Max Quezada MD MD rn Peltier, Brian, RN RN bp Corrections: (The following items were deleted from the chart) 08:32 07:30 BP 139 / 85; Pulse 82bpm; Resp 20bpm; Pulse Ox 96% 3 lpm Nasal Cannula; Temp bp 98.8F Oral; tm3
[2022-09-19 09:55] VITALS: O2SAT 96
[2022-09-19 09:57] VITALS: BP 139/85; TEMP 98.8
== END 2022-09-19 09:46 | disposition home or self-care (01) ==
LOC: ER 07:25
DX: S80.02XA Contusion of left knee, initial encounter (principal); Z96.653 Presence of artificial knee joint, bilateral; Z88.5 Allergy status to narcotic agent; Z88.6 Allergy status to analgesic agent; Z88.8 Allergy status to other drugs, medicaments and biological substances
CPT/HCPCS: 99283

== ENCOUNTER 2022-09-30 23:49 | Emergency (ER) | payer OTHER ==
--- OUTSIDE RECORDS SUMMARY | 2022-09-30 23:52 | XMS REPORT | Continuity of Care Document ---
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 Allergies, Adverse Reactions, Alerts Allergy Allergy Status Severity Reaction(s) Onset Inactive Treating Comm ents Source Name Type Date Date Clinician GABAPENT DRUG Active Unknown-Cmnt Un davina IN [facility] 04-20 ity of 00:00: [address] IBUPROFE DRUG Active Unknown-Cmnt Un davina N [facility] 04-20 ity of 00:00: [address] RISPERID DRUG Active EP Effects Univ ers ONE [facility] 04-20 ity of 00:00: [address] Medications This patient has no known medications. Procedures This patient has no known procedures. Encounters Start End Encounter Admission Attending Care Care Encounter Source Date/Time Date/Time Type Type Clinicians Facility Department ID 2020-06-25 2020-06-25 Outpatient [facility] [id number] Univers 00:00:00 00:00:00 JACKIE ity [facility] 2020-06-20 2020-06-20 Outpatient [facility] [id number] Univers 09:00:00 09:00:00 JACKIE doni [facility] 2020-05-02 2020-05-02 Outpatient [place] WANG, [facility] [id number] Univers 08:30:00 08:30:00 ELLIOTT danilo [facility] 2019-11-22 2019-11-22 Outpatient Harriet-Mbayo VFP [facility]FP [id number] [facility] 10:39:00 10:39:00 _A_ [id number] [facility] Pract[facility] 2019-11-22 2019-11-22 Outpatient Harriet-Mbayo VFP VFP [phone] [facility] 10:39:00 10:39:00 _A_ [id number] Family Practic e Results This patient has no known results.
[2022-10-01] MEDS ORDERED: NA CHLORIDE 0.9% 1,000 ML ONE (01:22)
[2022-10-01 01:37] LABS: Absolute Lymphocytes (CBC) 1.1 K/uL (0.7-4.9); Hematocrit 35.6 % (39.6-49.0); Lymphocytes % 8.1 % (15.3-44.8); MCV 89.9 fL (80-100); MPV 6.8 fL (7.6-11.3); RBC Red Blood Cell Count 3.97 M/uL (4.33-5.43)
[2022-10-01 01:42] LABS: Protime INR 0.86
[2022-10-01 01:58] LABS: Albumin 2.4 g/dL (3.4-5.0); Bilirubin Direct 0.1 mg/dL (0-0.2); Bilirubin Total 0.2 mg/dL (0.2-1.0); Magnesium 2.1 mg/dL (1.6-2.4); Potassium 4.6 mmol/L (3.5-5.1); Protein, Total 5.8 g/dL (6.4-8.2); Troponin High Sensitivity 19.2 pg/mL (<58.9)
--- NOTE | 2022-10-01 02:10 | EDPHYS ---
Physician Documentation [facility] Name: Taj Perez Age: 72 yrs Sex: Male : 1950 Arrival Date: 09/30/2022 Time: 23:52 Bed 13 Private MD: Berhane Hernandez HPI: 10/01 00:40 This 72 yrs old Male presents to ER via Wheelchair with complaints of Feet wild Swelling. 00:40 The patient presents with pain, swelling. The complaints affect the right leg and left wild leg. Context: The problem was sustained at an unknown site. Onset: The symptoms/episode began/occurred 2 day(s) ago. Modifying factors: The symptoms are alleviated by nothing. remaining still. Associated signs and symptoms: The patient has no apparent associated signs or symptoms. Treatment prior to arrival includes: no previous treatment. The patient has not experienced similar symptoms in the past. Historical: - Allergies: 00:16 Ibuprofen; vc1 00:16 Risperdal; vc1 00:20 Edmond Carbonate; vc1 00:20 Percocet; vc1 00:20 Gabapentin; vc1 - Home Meds: 00:20 amlodipine 10 mg oral tab 1 tab once daily [Active]; aripiprazole 10 mg oral tab 0.5 vc1 tab once daily [Active]; atorvastatin 80 mg oral tab 1 tab once daily [Active]; brimonidine ophthalmic (eye) [Active]; carboxymethylcellul.sod.(bulk) miscellaneous gran [Active]; cetirizine 10 mg oral cap [Active]; clopidogrel 75 mg oral tab 1 tab once daily [Active]; cyanocobalamin (vitamin B-12) oral [Active]; Diclofex DC topical [Active]; folic acid 1 mg Oral tab 1 tab once daily [Active]; furosemide 20 mg Oral tab 1 tab once daily [Active]; isosorbide mononitrate 60 mg Oral Tb24 1 tab once daily [Active]; latanoprost ophthalmic (eye) [Active]; metoprolol succinate 100 mg oral CSpX 1 cap once daily [Active]; naproxen 375 mg Oral tab 1 tab 2 times per day [Active]; netarsudil 0.02 % ophthalmic (eye) drop 1 drop once daily [Active]; nitroglycerin 0.4 mg SL subl 1 tab [Active]; potassium citrate 10 mEq (1,080 mg) oral TbER 1 tab 3 times per day [Active]; - PMHx: 00:16 Chronic obstructive lung disease; Congestive heart failure; Hypertensive disorder; vc1 Kidney stones; Myocardial infarction; psychiatric; spinal fusion; - PSHx: 00:16 bilateral knee replacement; heart stent/cath; vc1 - Immunization history:: Client reports receiving the 2nd dose of the Covid vaccine. - Social history:: Smoking status: Patient denies any tobacco usage or history of. - Family history:: not pertinent. ROS: 00:40 Constitutional: Negative for fever, chills, and weight loss, Eyes: Negative for injury, wild pain, redness, and discharge, ENT: Negative for injury, pain, and discharge, Neck: Negative for injury, pain, and swelling, Cardiovascular: Negative for chest pain, palpitations, and edema, Respiratory: Negative for shortness of breath, cough, wheezing, and pleuritic chest pain, Abdomen/GI: Negative for abdominal pain, nausea, vomiting, diarrhea, and constipation, Back: Negative for injury and pain, : Negative for injury, bleeding, discharge, and swelling, Skin: Negative for injury, rash, and discoloration, Neuro: Negative for headache, weakness, numbness, tingling, and seizure, Psych: Negative for depression, anxiety, suicide ideation, homicidal ideation, and hallucinations, Allergy/Immunology: Negative for hives, rash, and allergies, Endocrine: Negative for neck swelling, polydipsia, polyuria, polyphagia, and marked weight changes, Hematologic/Lymphatic: Negative for swollen nodes, abnormal bleeding, and unusual bruising. 00:40 MS/extremity: Positive for swelling, of the right leg and left leg. Exam: 00:40 Constitutional: This is a well developed, well nourished patient who is awake, alert, wild and in no acute distress. Head/Face: Normocephalic, atraumatic. Eyes: Pupils equal round and reactive to light, extra-ocular motions intact. Lids and lashes normal. Conjunctiva and sclera are non-icteric and not injected. Cornea within normal limits. Periorbital areas with no swelling, redness, or edema. ENT: Nares patent. No nasal discharge, no septal abnormalities noted. Tympanic membranes are normal and external auditory canals are clear. Oropharynx with no redness, swelling, or masses, exudates, or evidence of obstruction, uvula midline. Mucous membranes moist. Neck: Trachea midline, no thyromegaly or masses palpated, and no cervical lymphadenopathy. Supple, full range of motion without nuchal rigidity, or vertebral point tenderness. No Meningismus. Chest/axilla: Normal chest wall appearance and motion. Nontender with no deformity. No lesions are appreciated. Cardiovascular: Regular rate and rhythm with a normal S1 and S2. No gallops, murmurs, or rubs. Normal PMI, no JVD. No pulse deficits. Respiratory: Lungs have equal breath sounds bilaterally, clear to auscultation and percussion. No rales, rhonchi or wheezes noted. No increased work of breathing, no retractions or nasal flaring. Abdomen/GI: Soft, non-tender, with normal bowel sounds. No distension or tympany. No guarding or rebound. No evidence of tenderness throughout. Back: No spinal tenderness. No costovertebral tenderness. Full range of motion. Male : Normal genitalia with no discharge or lesions. Skin: Warm, dry with normal turgor. Normal color with no rashes, no lesions, and no evidence of cellulitis. Neuro: Awake and alert, GCS 15, oriented to person, place, time, and situation. Cranial nerves II-XII grossly intact. Motor strength 5/5 in all extremities. Sensory grossly intact. Cerebellar exam normal. Normal gait. Psych: Awake, alert, with orientation to person, place and time. Behavior, mood, and affect are within normal limits. 00:40 Musculoskeletal/extremity: Extremities: grossly normal except: swelling, ROM: full active range of motion, full passive range of motion, in all extremities, Circulation is intact in all extremities. Sensation intact. Compartment Syndrome exam of affected extremity: is normal. DVT Exam: No signs of deep vein thrombosis. no pain, no tenderness, negative Homans' sign noted on exam, no appreciated bluish discoloration, no erythema, no increased warmth. 02:10 ECG was reviewed by the Attending Physician. [facility] Vital Signs: 00:11 BP 107 / 67; Pulse 82; Resp 22; Temp 97; Pulse Ox 96% on 3 lpm NC; Weight 112.04 kg; vc1 Pain 0/10; 01:43 BP 104 / 63; Pulse 74; Resp 19; Pulse Ox 97% on 3 lpm NC; lg3 MDM: 00:25 Patient medically screened. [facility] 00:47 Differential diagnosis: contusion, tendonitis. Data reviewed: vital signs, nurses [facility] notes, lab test result(s), EKG, radiologic studies. Consideration of Admission/Observation Patient was admitted/placed on observation. Escalation of care including admission/observation considered. I considered the following discharge prescriptions or medication management in the emergency department Medications were administered in the Emergency Department. See MAR. Independent interpretation of the following test(s) in the Emergency Department EKG: See my EKG interpretation above. Test considered but Not performed: Other Details ct abd pelvis, r/o abdominal pathology. 10/01 00:37 Order name: Basic Metabolic Panel; Complete Time: 02:01 [facility] 10/01 00:37 Order name: CBC with Diff; Complete Time: 02:01 [facility] 10/01 00:37 Order name: LFT's; Complete Time: 02:01 [facility] 10/01 00:37 Order name: Magnesium; Complete Time: 02:01 [facility] 10/01 00:37 Order name: NT PRO-BNP; Complete Time: 02:01 [facility] 10/01 00:37 Order name: PT-INR; Complete Time: 02:01 [facility] 10/01 00:37 Order name: Troponin HS; Complete Time: 02:01 [facility] 10/01 00:37 Order name: XRAY Chest (1 view) [facility] 10/01 00:37 Order name: Edmond; Complete Time: 02:12 [facility] 10/01 02:05 Order name: SARS RAPID [facility] 10/01 02:27 Order name: Urine Dipstick-Ancillary; Complete Time: 03:07 EDPR 10/01 00:37 Order name: EKG; Complete Time: 00:38 [facility] 10/01 00:37 Order name: Cardiac monitoring; Complete Time: :17 [facility] 10/01 00:37 Order name: EKG - Nurse/Tech; Complete Time: 01:35 [facility] 10/01 00:37 Order name: IV Saline Lock; Complete Time: :27 [facility] 10/01 00:37 Order name: Labs collected and sent; Complete Time: 01:27 [facility] 10/01 00:37 Order name: O2 Per Protocol; Complete Time: : [facility] 10/01 00:37 Order name: O2 Sat Monitoring; Complete Time: :17 [facility] 10/01 00:37 Order name: US Extremity Venous W Compression Steve wild 10/01 00:37 Order name: Urine Dipstick-Ancillary (obtain specimen) wild EC:10 Rate is 75 beats/min. Rhythm is regular. QRS [place] is Normal. [place] interval is normal. QRS wild interval is normal. QT interval is normal. No Q waves. T waves are Normal. No ST changes noted. Clinical impression: NSR w/ Non-specific ST/T Changes and No evidence of ischemia. Interpreted by me. Reviewed by me. Administered Medications: : Drug: NS 0.9% 1000 ml Route: IV; Rate: 75 ml/hr; Site: left antecubital; lg3 Disposition Summary: 10/01/22 02:09 Transfer Ordered Transfer Location: [facility] wild Reason: Higher level of care wild Condition: Fair wild Problem: new wild Symptoms: have improved wild Accepting Physician: ky(10/01/22 03:27) vc1 Diagnosis - Generalized edema wild - Edema, unspecified wild - Unspecified kidney failure wild - Unspecified combined systolic (congestive) and diastolic (congestive) heart failure wild - Pneumonia due to other specified bacteria - diffuse reticulonodular opacification wild - Elevated white blood cell count wild Forms: - Medication Reconciliation Form wild - SBAR form wild Signatures: Dispatcher [employer] EDBerhane Brooks MD MD cha Attema, Lee, MAIL ROOM CLERK-C MAIL ROOM CLERK-Cla1 Amanda Marquez RN RN lg3 Wendy Kennedy RN RN vc1 Corrections: (The following items were deleted from the chart) 00:30 00:16 Allergies: Oxycodone HCl; vc1 vc1 03:27 02:09 ky wild vc1
--- NOTE | 2022-10-01 02:10 | ER ---
Nurse's Notes [facility] Name: Taj Perez Age: 72 yrs Sex: Male : 1950 Arrival Date: 09/30/2022 Time: 23:52 Bed 13 Private MD: Diagnosis: Generalized edema;Edema, unspecified;Unspecified kidney failure;Unspecified combined systolic (congestive) and diastolic (congestive) heart failure;Pneumonia due to other specified bacteria-diffuse reticulonodular opacification;Elevated white blood cell count Presentation: 10/01 00:11 Chief complaint: Patient states: "Both of my feet are swollen. This has never happened vc1 before.". Coronavirus screen: Vaccine status: Patient reports receiving the 2nd dose of the covid vaccine. [employer] Client denies travel out of the [place] in the last 14 days. At this time, the client does not indicate any symptoms associated with coronavirus-19. Ebola Screen: No symptoms or risks identified at this time. Initial Sepsis Screen: Does the patient meet any 2 criteria? No. Patient's initial sepsis screen is negative. Does the patient have a suspected source of infection? No. Patient's initial sepsis screen is negative. Risk Assessment: Do you want to hurt yourself or someone else? Patient reports no desire to harm self or others. Onset of symptoms was September 29, 2022. 00:11 Method Of Arrival: Wheelchair vc1 00:11 Acuity: TRISH 3 vc1 Triage Assessment: 00:16 General: Appears in no apparent distress. uncomfortable, Behavior is calm, cooperative, vc1 appropriate for age. Pain: Denies pain. EENT: No deficits noted. Neuro: No deficits noted. Neuro:. Cardiovascular: No deficits noted. Cardiovascular:. Cardiovascular:. Respiratory: Airway is patent Respiratory effort is even, unlabored, Respiratory pattern is tachypnea. GI: No deficits noted. No signs and/or symptoms were reported involving the gastrointestinal system. : No deficits noted. No signs and/or symptoms were reported regarding the genitourinary system. Derm:. Musculoskeletal:. Historical: - Allergies: 00:16 Ibuprofen; vc1 00:16 Risperdal; vc1 00:20 Coaling Carbonate; vc1 00:20 Percocet; vc1 00:20 Gabapentin; vc1 - Home Meds: 00:20 amlodipine 10 mg oral tab 1 tab once daily [Active]; aripiprazole 10 mg oral tab 0.5 vc1 tab once daily [Active]; atorvastatin 80 mg oral tab 1 tab once daily [Active]; brimonidine ophthalmic (eye) [Active]; carboxymethylcellul.sod.(bulk) miscellaneous gran [Active]; cetirizine 10 mg oral cap [Active]; clopidogrel 75 mg oral tab 1 tab once daily [Active]; cyanocobalamin (vitamin B-12) oral [Active]; Diclofex DC topical [Active]; folic acid 1 mg Oral tab 1 tab once daily [Active]; furosemide 20 mg Oral tab 1 tab once daily [Active]; isosorbide mononitrate 60 mg Oral Tb24 1 tab once daily [Active]; latanoprost ophthalmic (eye) [Active]; metoprolol succinate 100 mg oral CSpX 1 cap once daily [Active]; naproxen 375 mg Oral tab 1 tab 2 times per day [Active]; netarsudil 0.02 % ophthalmic (eye) drop 1 drop once daily [Active]; nitroglycerin 0.4 mg SL subl 1 tab [Active]; potassium citrate 10 mEq (1,080 mg) oral TbER 1 tab 3 times per day [Active]; - PMHx: 00:16 Chronic obstructive lung disease; Congestive heart failure; Hypertensive disorder; vc1 Kidney stones; Myocardial infarction; psychiatric; spinal fusion; - PSHx: 00:16 bilateral knee replacement; heart stent/cath; vc1 - Immunization history:: Client reports receiving the 2nd dose of the Covid vaccine. - Social history:: Smoking status: Patient denies any tobacco usage or history of. - Family history:: not pertinent. Screenin:18 Abuse screen: Denies threats or abuse. Nutritional screening: No deficits noted. vc1 Tuberculosis screening: No symptoms or risk factors identified. 01:33 [facility] ED Fall Risk Assessment (Adult) History of falling in the last 3 months, lg3 including since admission No falls in past 3 months (0 pts). Assessment: 01:33 General: Appears in no apparent distress. comfortable, Behavior is calm, cooperative. lg3 Pain: Denies pain. Neuro: No deficits noted. Orr Agitation-Sedation Scale (RASS): 0 - Alert and Calm Level of Consciousness is awake, alert, obeys commands, Oriented to person, place, time, situation. Cardiovascular: No deficits noted. Denies chest pain, shortness of breath, Capillary refill < 3 seconds Clubbing of nail beds is absent JVD is absent Patient's skin is warm and dry. Respiratory: Airway is patent Trachea midline Respiratory effort is even, unlabored, Respiratory pattern is regular, symmetrical. GI: No deficits noted. Abdomen is round non-distended, obese. : No deficits noted. No signs and/or symptoms were reported regarding the genitourinary system. EENT: No deficits noted. No signs and/or symptoms were reported regarding the EENT system. Derm: No deficits noted. No signs and/or symptoms reported regarding the dermatologic system. Skin is intact, is healthy with good turgor, Skin is dry, Skin is normal. Musculoskeletal: Circulation, motion, and sensation intact. Swelling present in left leg and right leg Denies pain in, left leg and right leg. 03:05 Reassessment: Pt states he wants to go home. Educated patient on the need for being vc1 admitted or transferred. Pt states "I am tired of being in hospitals I just want to go home to my dogs.". Vital Signs: 00:11 BP 107 / 67; Pulse 82; Resp 22; Temp 97; Pulse Ox 96% on 3 lpm NC; Weight 112.04 kg; vc1 Pain 0/10; 01:43 BP 104 / 63; Pulse 74; Resp 19; Pulse Ox 97% on 3 lpm NC; lg3 ED Course: 09/30 23:52 Patient arrived in ED. ja2 10/01 00:16 Triage completed. vc1 00:18 Patient has correct armband on for positive identification. Client placed on continuous vc1 cardiac and pulse oximetry monitoring. NIBP monitoring applied. 00:25 Berhane Gonzalez MD is Attending Physician. wild 00:51 XRAY Chest (1 view) In Process Unspecified. EDMS 01:17 US Extremity Venous W Compression Steve In Process Unspecified. EDMS 01:27 Basic Metabolic Panel Sent. lg3 01:27 CBC with Diff Sent. lg3 01:27 LFT's Sent. lg3 01:27 Magnesium Sent. lg3 01:27 NT PRO-BNP Sent. lg3 01:27 PT-INR Sent. lg3 01:28 Troponin HS Sent. lg3 01:28 Coaling Sent. lg3 01:32 Amanda Marquez, RN is Primary Nurse. lg3 01:33 Door closed. Noise minimized. Warm blanket given. lg3 01:33 Inserted saline lock: 22 gauge in left antecubital area, using aseptic technique. Blood lg3 collected. Oxygen administration via nasal cannula \\T\\ 3L/min. Administered Medications: 01:28 Drug: NS 0.9% 1000 ml Route: IV; Rate: 75 ml/hr; Site: left antecubital; lg3 Medication: 00:18 VIS not applicable for this client. vc1 Outcome: 02:09 ER care complete, transfer ordered by . wild 03:27 AMA AMA form signed vc1 03:27 Patient left the ED. vc1 Signatures: Dispatcher [employer] EDBerhane Brooks MD MD cha Gibson, Lacie, RN RN lg3 Carolina Ibanez Vanessa, RN RN vc1 Corrections: (The following items were deleted from the chart) 00:30 00:16 Allergies: Oxycodone HCl; vc1 vc1
[2022-10-01 02:26] LABS: Urine Blood Negative (Negative); Urine Glucose Negative (Negative); Urine Protein 1+ (Negative); Urine Specific Gravity 1.015 (1.005-1.030)
[2022-10-01 03:32] VITALS: TEMP 97
[2022-10-01 03:33] VITALS: BP 104/63; O2SAT 97
--- NOTE | 2022-10-01 17:31 | EKG ---
Test Date: 2022-10-01 Test Time: 01:34:54 Sheet Cutting Operator: MEASUREMENT RESULTS: Intervals: Rate: 75 [place]: 140 QRSD: 74 QT: 348 QTc: 388 [place]: P: 33 [place]: 140 QRS: 57 T: 51 INTERPRETIVE STATEMENTS: Normal sinus rhythm Normal ECG Compared to ECG 09/12/2022 00:57:16 No significant changes Electronically Signed On 10-01-22 17:30:12 POLYMERIZATION HELPER by Cristian Zacarias
--- NOTE | 2022-10-01 20:55 | RAD REPORT ---
EXAM DESCRIPTION: US - Extrem Venous W Compress Steve - 10/01/2022 1:15 am CLINICAL HISTORY: 72 years Male SWELLING TECHNIQUE: Bilateral lower extremity color duplex evaluation of the deep venous system performed on 10/01/2022 at 12: 59 AM. COMPARISON: Bilateral venous Doppler ultrasound report from 08/28/2022. The images were unavailable for review FINDINGS: Grayscale and color Doppler images of the deep veins of the right lower extremity was perf ormed. The grayscale images reveal normal compressibility of the deep veins. The Doppler images revea l normal flow, phasicity with respiration and normal augmentation with compression. The color flow im ages reveal normal saturation of flow within the deep veins of the right lower extremity. No intralum inal echoes are identified to suggest nonocclusive thrombus. Grayscale and color Doppler images of the deep veins of the left lower extremity was performed. The g rayscale images reveal normal compressibility of the deep veins. The Doppler images reveal normal mariah w, phasicity with respiration and normal augmentation with compression. The color flow images reveal normal saturation of flow within the deep veins of the left lower extremity. No intraluminal echoes a re identified to suggest nonocclusive thrombus. The superficial veins are patent. No additional abnormalities are identified. IMPRESSION: No evidence of deep venous thrombosis in either lower extremity. Electronically signed by: Aviva Yadav DO 10/01/2022 1:28 AM CURRICULUM DEVELOPMENT MANAGER Due to temporary technical issues with the PACS/Fluency reporting system, reports are being signed by the in house radiologists without review as a courtesy to insure prompt reporting. The interpreting radiologist is fully responsible for the content of the report.
--- NOTE | 2022-10-01 20:57 | RAD REPORT ---
EXAM DESCRIPTION: RAD - Chest Single View - 10/01/2022 12:49 am CLINICAL HISTORY: COUGH. COMPARISON: Chest radiograph from September 12, 2022. TECHNIQUE: Single view AP chest radiograph(s). FINDINGS: Reticulonodular opacification throughout both lungs. Small region of groundglass opacifica tion in the left midlung. Overall, pulmonary aeration is improved since the prior chest radiograph. N o pleural effusion. No pneumothorax. Nonenlarged cardiomediastinal silhouette. No significant osseous abnormality. IMPRESSION: Diffuse reticulonodular opacification. Small left midlung opacity. Findings could reflec t resolving pneumonia or edema. Electronically signed by: Cait Cobb MD 10/01/2022 1:01 AM CHUCK SPLITTER Due to temporary technical issues with the PACS/Fluency reporting system, reports are being signed by the in house radiologists without review as a courtesy to insure prompt reporting. The interpreting radiologist is fully responsible for the content of the report.
== END 2022-10-01 03:27 ==
LOC: ER 23:49
DX: R60.1 Generalized edema (principal); I50.40 Unspecified combined systolic (congestive) and diastolic (congestive) heart failure; J15.8 Pneumonia due to other specified bacteria; N19 Unspecified kidney failure; D72.829 Elevated white blood cell count, unspecified; J44.9 Chronic obstructive pulmonary disease, unspecified; Z95.818 Presence of other cardiac implants and grafts; Z96.653 Presence of artificial knee joint, bilateral
CPT/HCPCS: 93005; 85025; 80048; 36415; 83735; 85610; 80178; 80076; 81003; 84484; 83880; 71045; 93970; 99284; J7030

== ENCOUNTER 2022-10-17 21:05 | Emergency (ER) | payer OTHER ==
--- OUTSIDE RECORDS SUMMARY | 2022-10-17 21:08 | XMS REPORT | Continuity of Care Document ---
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 Allergies, Adverse Reactions, Alerts Allergy Allergy Status Severity Reaction(s) Onset Inactive Treating Comm ents Source Name Type Date Date Clinician GABAPENT DRUG Active Unknown-Cmnt Un davina IN [facility] 04-20 ity of 00:00: [address] IBUPROFE DRUG Active Unknown-Cmnt Un davina N [facility] 04-20 ity of 00:00: [address] RISPERID DRUG Active EP Effects Univ ers ONE [facility] 04-20 ity of 00:00: [address] Medications This patient has no known medications. Procedures This patient has no known procedures. Encounters Start End Encounter Admission Attending Care Care Encounter Source Date/Time Date/Time Type Type Clinicians Facility Department ID 2020-06-25 2020-06-25 Outpatient [facility] [id number] Univers 00:00:00 00:00:00 JACKIE ity [facility] 2020-06-20 2020-06-20 Outpatient [facility] [id number] Univers 09:00:00 09:00:00 JACKIE doni [facility] 2020-05-02 2020-05-02 Outpatient Merced WANG, [facility] [id number] Univers 08:30:00 08:30:00 ELLIOTT danilo [facility] 2019-11-22 2019-11-22 Outpatient Harriet-Mbayo VFP VFP [phone] [facility] 10:39:00 10:39:00 _A_ [id number] Family Practic e 2019-11-22 2019-11-22 Outpatient Harriet-Mbayo VFP VFP [id number] [facility] 10:39:00 10:39:00 _A_ [id number] Family Practic e Results This patient has no known results.
[2022-10-17 21:47] LABS: Absolute Lymphocytes (CBC) 0.6 K/uL (0.7-4.9); Hematocrit 27.9 % (39.6-49.0); MCV 88.2 fL (80-100); MPV 6.2 fL (7.6-11.3); RBC Red Blood Cell Count 3.17 M/uL (4.33-5.43)
[2022-10-17 21:58] LABS: Protime INR 1.19
--- NOTE | 2022-10-17 22:02 | ER ---
Nurse's Notes [facility] Name: Taj Perez Age: 72 yrs Sex: Male : 1950 Arrival Date: 10/17/2022 Time: 21:22 Bed 7 Private MD: Diagnosis: Fall on same level, unspecified;Weakness;Fever, unspecified;Altered mental status, unspecified;Pleural effusion in other conditions classified elsewhere;Pneumonia due to other specified bacteria;Anemia, unspecified;Unspecified injury of head, initial encounter-right posterior frontal lobe, cortical contusion;Chronic kidney disease, unspecified Presentation: 10/17 21:25 Chief complaint: Patient states: C/O right lower back pain 10, S/P fall when losing pf1 balance while 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 Patient stated is on blood thinner. Patient denies LOC. Patient alert and orientated to person and place, not time. 21:25 Method Of Arrival: EMS: [facility] pf1 21:25 Coronavirus screen: Client presents with at least one sign or symptom that may indicate pf1 coronavirus-19. Standard/surgical mask placed on the client. Ebola Screen: Patient negative for fever greater than or equal to 101.5 degrees Fahrenheit, and additional compatible Ebola Virus Disease symptoms. Initial Sepsis Screen: Does the patient meet any 2 criteria? No. Patient's initial sepsis screen is negative. Does the patient have a suspected source of infection? No. Patient's initial sepsis screen is negative. Risk Assessment: Do you want to hurt yourself or someone else? Patient reports no desire to harm self or others. Onset of symptoms was October 17, 2022. 21:25 Acuity: TRISH 3 pf1 21:25 Care prior to arrival: Glucose check: 168 Oxygen administered. via nasal cannula, 3LNC. pf1 21:25 Mechanism of Injury: Fall onto the kitchen floor. Trauma event details: Injury occurred pf1 in the [facility], Injury occurred: at home. Injury occurred: October 17, 2022 Injury occurred at: 20:00. Triage Assessment: 21:25 General: Appears in no apparent distress. comfortable, obese, well groomed, well pf1 developed, Behavior is calm, cooperative, appropriate for age, quiet. 21:25 Pain: Complains of pain in back and chest Pain currently is 10 out of 10 on a pain pf1 scale. EENT: No deficits noted. Neuro: Level of Consciousness is awake, alert, obeys commands, Oriented to person, place, situation. Cardiovascular: Reports chest pain, Capillary refill < 3 seconds Patient's skin is warm and dry. Respiratory: Airway is patent Trachea midline Respiratory effort is even, Respiratory pattern is regular. GI: No deficits noted. Abdomen is round non-distended, obese, Bowel sounds present X 4 quads. Abd is soft and non tender X 4 quads. : No deficits noted. No signs and/or symptoms were reported regarding the genitourinary system. Derm: abrasion noted to bilateral knee and left forehead with contusion. Musculoskeletal: Circulation, motion, and sensation intact. Capillary refill < 3 seconds, Swelling present in right foot, left foot, right leg and left leg. Trauma Activation: Alert Physician: ED Physician; Name: Dr. Gonzalez; Notified At: 21:01; Arrived At: Physician: General Surgeon; Name: ; Notified At: 21:01; Arrived At: Physician: Radiology; Name: ; Notified At: 21:01; Arrived At: Physician: Respiratory; Name: ; Notified At: 21:01; Arrived At: Physician: Lab; Name: ; Notified At: 21:01; Arrived At: Historical: - Allergies: 21:40 GABAPENTIN; pf1 21:40 Ibuprofen; pf1 21:40 [place] Carbonate; pf1 21:40 Percocet; pf1 21:40 Risperdal; pf1 - Home Meds: 10/18 04:00 tylenol 325mg every 6 hours [Active]; amlodipine 10 mg tab 1 tab once daily [Active]; pf1 aripiprazole 10 mg Oral tab 0.5 tab once daily [Active]; atorvastatin 80 mg Oral tab 1 tab once daily [Active]; brimonidine 0.2 % ophthalmic (eye) drop 1 drop every 8 hours [Active]; carboxymethylcellul.sod.(bulk) miscellaneous gran [Active]; carboxymethylcellulose sodium 0.5 % ophthalmic (eye) drop 1 drop every 6 hours [Active]; cetirizine 10 mg Oral cap [Active]; cholecalciferol (vitamin D3) 50 mcg (2,000 unit) oral cap 1 tablet daily [Active]; clopidogrel 75 mg Oral tab 1 tab once daily [Active]; cyanocobalamin (vitamin B-12) 1,000 mcg oral cap 1 tab twice a day [Active]; Diclofex DC 1% Topical 1 unit twice a day [Active]; folic acid 1 mg Oral tab 1 tab once daily [Active]; furosemide 20 mg Oral tab 1 tab once daily [Active]; isosorbide mononitrate 60 mg Oral Tb24 1 tab once daily [Active]; latanoprost ophthalmic (eye) [Active]; metoprolol succinate 100 mg Oral CSpX 1 cap once daily [Active]; naproxen 375 mg Oral tab 1 tab 2 times per day [Active]; netarsudil 0.02 % ophthalmic (eye) drop 1 drop once daily [Active]; nitroglycerin 0.4 mg SL subl 1 tab [Active]; potassium citrate 10 mEq (1,080 mg) Oral TbER 1 tab 3 times per day [Active]; tiotropium bromide 2.5 mcg/actuation inhalation mist 2 puffs once daily [Active]; - PMHx: 04:00 Chronic obstructive lung disease; Congestive heart failure; Hypertensive disorder; pf1 Kidney stones; Myocardial infarction; psychiatric; spinal fusion; Hypercholesterolemia; Anemia; Glaucoma; 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 - Family history:: not pertinent. - Social history:: Smoking status: unknown. Screenin/05 21:25 [facility] ED Fall Risk Assessment (Adult) History of falling in the last 3 months, pf1 including since admission Yes- single mechanical fall (1 pt) Confusion or Disorientation Yes (5 pts) Intoxicated or Sedated No (0 pts) Impaired Gait Yes (1 pt) Mobility Assist Device Used Yes (1 pt) Altered Elimination Yes (1 pt) Score/Fall Risk Level 3 or more points = High Risk Oriented to surroundings, Maintained a safe environment, Educated pt \T\ family on fall prevention, incl call for assistance when getting out of bed, Assessed \T\ reinforced patient's understanding of fall precautions, Provided non-skid footwear, Hourly rounding (assess needs \T\ fall precautionary measures) done, Used ambulatory aids as needed (educated on \T\ assisted with), Used gait belt as appropriate Implemented a Fall Risk Plan of Care, Apply high fall risk patient identification: yellow non skid footwear/ fall signage, Remained w/in arm's length of patient and in sight while toileting, Offered frequent toileting (1:1 observation), Remained with patient while ambulating, Utilized family, sitter, or virtual crane assembler as indicated. 21:25 Abuse screen: Denies threats or abuse. Nutritional screening: No deficits noted. pf1 Tuberculosis screening: No symptoms or risk factors identified. Primary Survey: 21:25 NO uncontrolled hemorrhage observed. pf1 21:25 A: The client is awake and alert. The airway is patent. Airway: patent, Oxygen via pf1 nasal cannula at 3 liters per minute. 21:25 Breathing/Chest: Spontaneous respiratory effort, equal unlabored respirations, breath pf1 sounds clear bilaterally, regular pattern, symmetrical chest rise and fall. 21:25 Circulation: No external hemorrhage present. Regular and strong central pulse, skin pf1 warm/dry/normal color. Disability Pupils are equal, round, reactive to light and accommodation. Client is alert. Exposure/Environment: All clothing and personal items were removed. Forensic evidence collection is not deemed to be indicated at this time. Items placed in patient belonging bag. There is no evidence of uncontrolled external bleeding. Obvious injury(ies) are noted at this time: abrasions noted to bilateral knee and left forehead A warming method has been applied: A warm blanket has been provided to the patient. 21:55 Reassessment Breathing: Spontaneous respiratory effort, equal unlabored respirations, pf1 breath sounds clear bilaterally, regular pattern with symmetrical chest rise and fall. Circulation: No external hemorrhage noted. Regular and strong central pulse, skin warm/dry/normal color. Disability: Pupils Pupils are equal, round, reactive to light and accomodation. Alert. Secondary Survey: 21:55 HEENT: Head Other contusion with abrasion to left forehead Face Other contusion and pf1 abrasion to left forehead Eyes: No injury or deformity noted. to bilateral eyes. Ears: clear bilaterally. Nose: clear to bilateral nares. Throat: No injury or deformity noted. 21:55 Gastrointestinal: No deficits noted. Abdomen is soft, non-distended, Bowel sounds pf1 present in all quadrants. Palpation No deficit noted. : No deficits noted. Musculoskeletal: Circulation, motion, and sensation intact. Capillary refill < 3 seconds, Swelling present in right foot and left foot and left leg and right leg. Assessment: 21:25 General: Appears in no apparent distress. comfortable, obese, well groomed, well pf1 developed, Behavior is calm, cooperative, appropriate for age, quiet. 21:25 Pain: Complains of pain in right lower back pain of 10,onset after fall and bilateral pf1 chest pain,onset this AM. 22:30 Reassessment: Patient appears in no apparent distress at this time. No changes from pf1 previously documented assessment. Patient and/or family updated on plan of care and expected duration. Pain level reassessed. Patient is alert, oriented x 3, equal unlabored respirations, skin warm/dry/pink. Patient states symptoms have not improved. 23:30 Reassessment: Patient appears in no apparent distress at this time. No changes from pf1 previously documented assessment. Patient and/or family updated on plan of care and expected duration. Pain level reassessed. Patient is alert, oriented x 3, equal unlabored respirations, skin warm/dry/pink. 10/18 00:30 Reassessment: Patient appears in no apparent distress at this time. Patient and/or pf1 family updated on plan of care and expected duration. Pain level reassessed. Patient states symptoms have improved. Patient sleeping at this time. Family at . 01:30 Reassessment: Patient appears in no apparent distress at this time. Patient and/or pf1 family updated on plan of care and expected duration. Pain level reassessed. Patient states feeling better. Patient states symptoms have improved. 02:30 Reassessment: Patient appears in no apparent distress at this time. Patient and/or pf1 family updated on plan of care and expected duration. Pain level reassessed. Patient pending transfer, patient sleeping at this time, lights dimmed. 04:26 General: Patient report given to Frederic mill representative with EMS. pf1 Vital Signs: 10/17 21:25 BP 102 / 60; Pulse 110; Resp 20; Temp 99.7; Pulse Ox 96% on 3 lpm NC; Weight 112.04 kg; pf1 Height 5 ft. 9 in. (175.26 cm); Pain 10/10; 22:30 BP 101 / 58; Pulse 104; Resp 22 S; Pulse Ox 99% on 3 lpm NC; pf1 23:06 BP 127 / 66; Pulse 107; Resp 29 S; Pulse Ox 97% on 3 lpm NC; pf1 10/18 00:00 BP 122 / 89; Pulse 108; Resp 22; Pulse Ox 96% on 3 lpm NC; Pain 10/10; pf1 00:30 BP 86 / 49; Pulse 105; Resp 20; Pulse Ox 94% on 3 lpm NC; Pain 10/10; pf1 00:35 BP 81 / 50; Pulse 108; Resp 21; Temp 99(O); Pulse Ox 95% on 3 lpm NC; Pain 10/10; pf1 01:30 BP 91 / 54; Pulse 97; Resp 18; Temp 98.7; Pulse Ox 94% on 3 lpm NC; Pain 0/10; pf1 02:30 BP 88 / 56; Pulse 89; Resp 15; Pulse Ox 97% on 3 lpm NC; Pain 0/10; pf1 03:30 BP 122 / 78; Pulse 91; Resp 17; Temp 98.5; Pulse Ox 96% on 3 lpm NC; Pain 0/10; pf1 04:20 BP 105 / 76; Pulse 85; Resp 16; Temp 98.1; Pulse Ox 95% on 3 lpm NC; Pain 0/10; pf1 10/17 21:25 Body Mass Index 36.48 (112.04 kg, 175.26 cm) pf1 Jaspal Coma Score: 10/17 21:25 Eye Response: spontaneous(4). Verbal Response: confused(4). Motor Response: obeys pf1 commands(6). Total: 14. Trauma Score (Adult): 21:25 Eye Response: spontaneous(1); Verbal Response: confused(1); Motor Response: obeys pf1 commands(2); Systolic BP: > 89 mm Hg(4); Respiratory Rate: 10 to 29 per min(4); Jaspal Score: 14; Trauma Score: 12 ED Course: 21:22 Patient arrived in ED. pf1 21:25 Patient has correct armband on for positive identification. Placed in gown. Bed in low pf1 position. Call light in reach. Side rails up X2. 21:25 Arm band placed on left wrist. pf1 21:31 Berhane Gonzalez MD is Attending Physician. wild 21:34 Diya clarke RN is Primary Nurse. pf1 21:35 Inserted saline lock: 20 gauge in right antecubital area, using aseptic technique. zm Blood collected. 21:35 Thermoregulation: warm blanket given to patient. pf1 21:35 Oxygen administration via nasal cannula \T\ 3L/min. pf1 22:20 CT Traumagram (Head C Spine CAP wo con) In Process Unspecified. EDMS 22:28 XRAY Chest (1 view) In Process Unspecified. EDMS 22:45 Inserted saline lock: 20 gauge in left antecubital area, using aseptic technique. Blood pf1 collected. 22:49 COVID-19/FLU A+B Sent. zm 23:21 Lactate w/ 2H reflex if indic. Sent. pf1 23:21 Blood Culture Adult (2) Sent. pf1 10/18 02:21 Triage completed. pf1 02:28 No provider procedures requiring assistance completed. pf1 03:42 Patient transferred, IV remains in place. pf1 Administered Medications: 10/17 22:30 Drug: NS 0.9% 1000 ml Route: IV; Rate: 125 ml/hr; Site: right antecubital; pf1 23:30 Follow up: Response: Marked relief of symptoms pf1 10/18 04:27 Follow up: Response: No adverse reaction; IV Status: Infusion continued upon transfer; pf1 IV Intake: 600ml 10/17 22:30 Drug: Tylenol 1000 mg Route: PO; pf1 23:30 Follow up: Response: No adverse reaction; Marked relief of symptoms; Temperature is pf1 decreased 23:12 Drug: NS 0.9% 1000 ml Route: IV; Rate: 1 bolus; Site: right antecubital; pf1 10/18 00:15 Follow up: IV Status: Completed infusion; IV Intake: 1000ml pf1 00:15 Follow up: Response: No adverse reaction pf1 10/17 23:12 Drug: Rocephin (cefTRIAXone) 1 grams Route: IV; Rate: per protocol; Site: right pf1 antecubital; 23:15 Follow up: IV Status: Completed infusion; IV Intake: 10ml pf1 10/18 00:00 Follow up: Response: No adverse reaction pf1 10/17 23:30 Drug: Xopenex (levalbuterol) 2.5 mg Route: Inhalation; pf1 10/18 00:30 Follow up: Response: No adverse reaction; Marked relief of symptoms pf1 10/17 23:30 Drug: AtroVENT (ipratropium) Aerosol 0.5 mg Route: Inhalation; pf1 10/18 00:30 Follow up: Response: No adverse reaction; Marked relief of symptoms pf1 10/17 23:35 Drug: Zithromax (azithromycin) 500 mg Route: IVPB; Infused Over: 1 hrs; Site: right pf1 antecubital; 10/18 00:35 Follow up: Response: No adverse reaction; IV Status: Completed infusion; IV Intake: pf1 250ml 01:58 Drug: vancoMYCIN 1 grams Route: IVPB; Infused Over: 2 hrs; Site: right antecubital; as6 02:29 Follow up: Response: No adverse reaction pf1 04:00 Follow up: Response: No adverse reaction; Marked relief of symptoms; IV Status: pf1 Completed infusion; IV Intake: 250ml 01:58 Drug: Solu-CORTEF (hyrdoCORTISONE) 100 mg Route: IVP; Site: right antecubital; as6 02:29 Follow up: Response: No adverse reaction pf1 Medication: 04:24 VIS not applicable for this client. pf1 Intake: 10/17 23:15 IV: 10ml; Total: 10ml. pf1 10/18 00:15 IV: 1000ml; Total: 1010ml. pf1 00:35 IV: 250ml; Total: 1260ml. pf1 04:00 IV: 2100ml; Total: 3360ml. pf1 04:00 IV: 250ml; Total: 3610ml. pf1 04:27 IV: 600ml; Total: 4210ml. pf1 Output: 04:00 Urine: 2ml (Voided); Total: 2ml. pf1 Outcome: 10/17 22:02 ER care complete, transfer ordered by MD. rome 10/18 03:35 Transferred to [facility] Transfer form completed. X-rays sent pf1 w/ patient. Note: patient report given to ELBERT Ireland at the [facility] Condition: stable Instructed on the need for transfer, Demonstrated understanding of instructions. 04:25 Patient's length of stay in the Emergency Department was greater than 2 hours. patient pf1 [facility] ERPatient's length of stay extended due to 04:27 Patient left the ED. pf1 Signatures: Dispatcher [employer] EDBerhane Brooks MD MD cha Slawson, Ashby, RN RN as6 Lalita Holguin Pamala, RN RN pf1 Corrections: (The following items were deleted from the chart) 02:48 02 22:30 BP 101 / 58; Pulse 104bpm; Resp 22bpm; Spontaneous; Pulse Ox 99% RA; as6 pf1 10/18 02:48 0205 23:06 BP 127 / 66; Pulse 107bpm; Resp 29bpm; Spontaneous; Pulse Ox 97% RA; as6 pf1 10/18 06:37 04:00 Home Meds: Plavix 75 mg Oral tab 1 tab once daily; pf1 pf1
--- NOTE | 2022-10-17 22:02 | EDPHYS ---
Physician Documentation [facility] Name: Taj Perez Age: 72 yrs Sex: Male : 1950 Arrival Date: 10/17/2022 Time: 21:22 Bed 7 Private MD: ED Physician Berhane Gonzalez HPI: 10/17 21:55 This 72 yrs old Male presents to ER via Unassigned with complaints of fever , wild weakness, fall and ams. 21:55 The patient presents with pain. The complaints affect the right leg and left leg. wild Context: The problem was sustained at home. Onset: The symptoms/episode began/occurred just prior to arrival. Modifying factors: The symptoms are alleviated by nothing. the symptoms are aggravated by movement. Associated signs and symptoms: Pertinent positives: swelling, weakness. fever , weak, ams and fall. Details of fall: The patient fell from an upright position, while walking. Onset: The symptoms/episode began/occurred today. Associated injuries: The patient sustained upper back injury, injury to the low back. The patient presents with confusion, trouble concentrating. Historical: - Allergies: 21:40 GABAPENTIN; pf1 21:40 Ibuprofen; pf1 21:40 [place] Carbonate; pf1 21:40 Percocet; pf1 21:40 Risperdal; pf1 - Home Meds: 10/18 04:00 tylenol 325mg every 6 hours [Active]; amlodipine 10 mg tab 1 tab once daily [Active]; pf1 aripiprazole 10 mg Oral tab 0.5 tab once daily [Active]; atorvastatin 80 mg Oral tab 1 tab once daily [Active]; brimonidine 0.2 % ophthalmic (eye) drop 1 drop every 8 hours [Active]; carboxymethylcellul.sod.(bulk) miscellaneous gran [Active]; carboxymethylcellulose sodium 0.5 % ophthalmic (eye) drop 1 drop every 6 hours [Active]; cetirizine 10 mg Oral cap [Active]; cholecalciferol (vitamin D3) 50 mcg (2,000 unit) oral cap 1 tablet daily [Active]; clopidogrel 75 mg Oral tab 1 tab once daily [Active]; cyanocobalamin (vitamin B-12) 1,000 mcg oral cap 1 tab twice a day [Active]; Diclofex DC 1% Topical 1 unit twice a day [Active]; folic acid 1 mg Oral tab 1 tab once daily [Active]; furosemide 20 mg Oral tab 1 tab once daily [Active]; isosorbide mononitrate 60 mg Oral Tb24 1 tab once daily [Active]; latanoprost ophthalmic (eye) [Active]; metoprolol succinate 100 mg Oral CSpX 1 cap once daily [Active]; naproxen 375 mg Oral tab 1 tab 2 times per day [Active]; netarsudil 0.02 % ophthalmic (eye) drop 1 drop once daily [Active]; nitroglycerin 0.4 mg SL subl 1 tab [Active]; potassium citrate 10 mEq (1,080 mg) Oral TbER 1 tab 3 times per day [Active]; tiotropium bromide 2.5 mcg/actuation inhalation mist 2 puffs once daily [Active]; - PMHx: 04:00 Chronic obstructive lung disease; Congestive heart failure; Hypertensive disorder; pf1 Kidney stones; Myocardial infarction; psychiatric; spinal fusion; Hypercholesterolemia; Anemia; Glaucoma; 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 - Family history:: not pertinent. - Social history:: Smoking status: unknown. ROS: 10/17 21:55 Constitutional: Negative for fever, chills, and weight loss, Eyes: Negative for injury, wild pain, redness, and discharge, ENT: Negative for injury, pain, and discharge, Neck: Negative for injury, pain, and swelling, Respiratory: Negative for shortness of breath, cough, wheezing, and pleuritic chest pain, Abdomen/GI: Negative for abdominal pain, nausea, vomiting, diarrhea, and constipation, Back: Negative for injury and pain, : Negative for injury, bleeding, discharge, and swelling, Skin: Negative for injury, rash, and discoloration, Psych: Negative for depression, anxiety, suicide ideation, homicidal ideation, and hallucinations, Allergy/Immunology: Negative for hives, rash, and allergies, Endocrine: Negative for neck swelling, polydipsia, polyuria, polyphagia, and marked weight changes, Hematologic/Lymphatic: Negative for swollen nodes, abnormal bleeding, and unusual bruising. Cardiovascular: Positive for edema. MS/extremity: Positive for contusion, pain, of the right leg and left leg. Exam: 21:55 Constitutional: This is a well developed, well nourished patient who is awake, alert, wild and in no acute distress. Head/Face: Normocephalic, atraumatic. Eyes: Pupils equal round and reactive to light, extra-ocular motions intact. Lids and lashes normal. Conjunctiva and sclera are non-icteric and not injected. Cornea within normal limits. Periorbital areas with no swelling, redness, or edema. ENT: Nares patent. No nasal discharge, no septal abnormalities noted. Tympanic membranes are normal and external auditory canals are clear. Oropharynx with no redness, swelling, or masses, exudates, or evidence of obstruction, uvula midline. Mucous membranes moist. Neck: Trachea midline, no thyromegaly or masses palpated, and no cervical lymphadenopathy. Supple, full range of motion without nuchal rigidity, or vertebral point tenderness. No Meningismus. Chest/axilla: Normal chest wall appearance and motion. Nontender with no deformity. No lesions are appreciated. Respiratory: Lungs have equal breath sounds bilaterally, clear to auscultation and percussion. No rales, rhonchi or wheezes noted. No increased work of breathing, no retractions or nasal flaring. Abdomen/GI: Soft, non-tender, with normal bowel sounds. No distension or tympany. No guarding or rebound. No evidence of tenderness throughout. Back: No spinal tenderness. No costovertebral tenderness. Full range of motion. Male : Normal genitalia with no discharge or lesions. Skin: Warm, dry with normal turgor. Normal color with no rashes, no lesions, and no evidence of cellulitis. Neuro: Awake and alert, GCS 15, oriented to person, place, time, and situation. Cranial nerves II-XII grossly intact. Motor strength 5/5 in all extremities. Sensory grossly intact. Cerebellar exam normal. Normal gait. Psych: Awake, alert, with orientation to person, place and time. Behavior, mood, and affect are within normal limits. 21:55 Cardiovascular: Rate: tachycardic, actual rate is 110 bpm, Rhythm: regular, Pulses: Pulses are 4+ in bilateral radial, brachial, femoral, popliteal, posterior tibial and and dorsalis pedis arteries.. Heart sounds: normal, Edema: 2+ edema to level of left midcalf and right midcalf, JVD: is not appreciated. 21:55 ECG was reviewed by the Attending Physician. Vital Signs: 21:25 BP 102 / 60; Pulse 110; Resp 20; Temp 99.7; Pulse Ox 96% on 3 lpm NC; Weight 112.04 kg; pf1 Height 5 ft. 9 in. (175.26 cm); Pain 10/10; 22:30 BP 101 / 58; Pulse 104; Resp 22 S; Pulse Ox 99% on 3 lpm NC; pf1 23:06 BP 127 / 66; Pulse 107; Resp 29 S; Pulse Ox 97% on 3 lpm NC; pf1 02 00:00 BP 122 / 89; Pulse 108; Resp 22; Pulse Ox 96% on 3 lpm NC; Pain 10/10; pf1 00:30 BP 86 / 49; Pulse 105; Resp 20; Pulse Ox 94% on 3 lpm NC; Pain 10/10; pf1 00:35 BP 81 / 50; Pulse 108; Resp 21; Temp 99(O); Pulse Ox 95% on 3 lpm NC; Pain 10/10; pf1 01:30 BP 91 / 54; Pulse 97; Resp 18; Temp 98.7; Pulse Ox 94% on 3 lpm NC; Pain 0/10; pf1 02:30 BP 88 / 56; Pulse 89; Resp 15; Pulse Ox 97% on 3 lpm NC; Pain 0/10; pf1 03:30 BP 122 / 78; Pulse 91; Resp 17; Temp 98.5; Pulse Ox 96% on 3 lpm NC; Pain 0/10; pf1 04:20 BP 105 / 76; Pulse 85; Resp 16; Temp 98.1; Pulse Ox 95% on 3 lpm NC; Pain 0/10; pf1 10/17 21:25 Body Mass Index 36.48 (112.04 kg, 175.26 cm) pf1 Jaspal Coma Score: 10/17 21:25 Eye Response: spontaneous(4). Verbal Response: confused(4). Motor Response: obeys pf1 commands(6). Total: 14. Trauma Score (Adult): 21:25 Eye Response: spontaneous(1); Verbal Response: confused(1); Motor Response: obeys pf1 commands(2); Systolic BP: > 89 mm Hg(4); Respiratory Rate: 10 to 29 per min(4); Dutton Score: 14; Trauma Score: 12 MDM: 21:31 Patient medically screened. [facility] 21:59 Differential diagnosis: closed fracture, contusion, abrasion, tendonitis. Differential wild Diagnosis altered mental status, sepsis, flu. Differential diagnosis: abrasion, closed head injury, contusion, multiple trauma, sprain, strain, cerebrovascular accident, GI bleed, idiopathic syncope, vasovagal episode, electrolyte abnormality, hypoglycemia, intracranial bleed, pneumonia, sepsis, TIA, UTI, volume depletion. Data reviewed: vital signs, nurses notes, EMS record, lab test result(s), EKG, radiologic studies, CT scan, plain films. Consideration of Admission/Observation Patient was admitted/placed on observation. Escalation of care including admission/observation considered. I considered the following discharge prescriptions or medication management in the emergency department Medications were administered in the Emergency Department. See MAR. Test considered but Not performed: X-ray: bilateral knees. Care significantly affected by the following chronic conditions: Diabetes, Hypertension, Obesity. 10/17 21:34 Order name: Basic Metabolic Panel; Complete Time: 22:38 [facility] 10/17 21:34 Order name: CBC with Diff; Complete Time: 00:54 wild 10/17 21:34 Order name: LFT's; Complete Time: 22:38 [facility] 10/17 21:34 Order name: Magnesium; Complete Time: 22:38 wild 10/17 21:34 Order name: NT PRO-BNP; Complete Time: 22:38 wild 10/17 21:34 Order name: PT-INR; Complete Time: 22:38 wild 10/17 21:34 Order name: Troponin HS; Complete Time: 22:38 [facility] 10/17 21:34 Order name: XRAY Chest (1 view); Complete Time: 22:38 [facility] 10/17 21:34 Order name: Lipase; Complete Time: 22:38 [facility] 10/17 21:54 Order name: Blood Culture Adult (2) [facility] 10/17 21:54 Order name: Lactate w/ 2H reflex if indic.; Complete Time: 00:54 wild 10/17 21:54 Order name: COVID-19/FLU A+B; Complete Time: 00:54 [facility] 10/17 22:09 Order name: Manual Differential; Complete Time: 00:54 EDMS 10/17 21:34 Order name: EKG; Complete Time: 21:35 [facility] 10/17 21:34 Order name: Cardiac monitoring; Complete Time: 21:34 [facility] 10/17 21:34 Order name: EKG - Nurse/Tech; Complete Time: 23:21 [facility] 10/17 21:34 Order name: IV Saline Lock; Complete Time: 21:34 [facility] 10/17 21:34 Order name: Labs collected and sent; Complete Time: 23:21 [facility] 10/17 21:34 Order name: O2 Per Protocol; Complete Time: 22:04 [facility] 10/17 21:34 Order name: CT Traumagram (Head C Spine CAP wo con); Complete Time: 22:38 [facility] 10/17 21:34 Order name: O2 Sat Monitoring; Complete Time: 22:04 [facility] 10/18 01:28 Order name: IV Saline Lock - Large Bore; Complete Time: 01:30 [facility] EC:55 Rate is 107 beats/min. Rhythm is regular. QRS [place] is Normal. CA interval is normal. [facility] QRS interval is normal. QT interval is normal. No Q waves. T waves are Normal. No ST changes noted. Clinical impression: Sinus tachycardia and No evidence of ischemia. Interpreted by me. Reviewed by me. Administered Medications: 22:30 Drug: NS 0.9% 1000 ml Route: IV; Rate: 125 ml/hr; Site: right antecubital; pf1 23:30 Follow up: Response: Marked relief of symptoms pf1 10/18 04:27 Follow up: Response: No adverse reaction; IV Status: Infusion continued upon transfer; pf1 IV Intake: 600ml 10/17 22:30 Drug: Tylenol 1000 mg Route: PO; pf1 23:30 Follow up: Response: No adverse reaction; Marked relief of symptoms; Temperature is pf1 decreased 23:12 Drug: NS 0.9% 1000 ml Route: IV; Rate: 1 bolus; Site: right antecubital; pf1 10/18 00:15 Follow up: IV Status: Completed infusion; IV Intake: 1000ml pf1 00:15 Follow up: Response: No adverse reaction pf1 10/17 23:12 Drug: Rocephin (cefTRIAXone) 1 grams Route: IV; Rate: per protocol; Site: right pf1 antecubital; 23:15 Follow up: IV Status: Completed infusion; IV Intake: 10ml pf1 10/18 00:00 Follow up: Response: No adverse reaction pf1 10/17 23:30 Drug: Xopenex (levalbuterol) 2.5 mg Route: Inhalation; pf1 10/18 00:30 Follow up: Response: No adverse reaction; Marked relief of symptoms pf1 10/17 23:30 Drug: AtroVENT (ipratropium) Aerosol 0.5 mg Route: Inhalation; pf1 10/18 00:30 Follow up: Response: No adverse reaction; Marked relief of symptoms pf1 10/17 23:35 Drug: Zithromax (azithromycin) 500 mg Route: IVPB; Infused Over: 1 hrs; Site: right pf1 antecubital; 10/18 00:35 Follow up: Response: No adverse reaction; IV Status: Completed infusion; IV Intake: pf1 250ml 01:58 Drug: vancoMYCIN 1 grams Route: IVPB; Infused Over: 2 hrs; Site: right antecubital; as6 02:29 Follow up: Response: No adverse reaction pf1 04:00 Follow up: Response: No adverse reaction; Marked relief of symptoms; IV Status: pf1 Completed infusion; IV Intake: 250ml 01:58 Drug: Solu-CORTEF (hyrdoCORTISONE) 100 mg Route: IVP; Site: right antecubital; as6 02:29 Follow up: Response: No adverse reaction pf1 Disposition Summary: 10/17/22 22:02 Transfer Ordered Transfer Location: [facility] wild Reason: Higher level of care wild Condition: Stable wild Problem: new wild Symptoms: have improved wild Accepting Physician: to va(10/18/22 04:27) pf1 Diagnosis - Fall on same level, unspecified wild - Weakness wild - Fever, unspecified wild - Altered mental status, unspecified wild - Pleural effusion in other conditions classified elsewhere wild - Pneumonia due to other specified bacteria wild - Anemia, unspecified wild - Unspecified injury of head, initial encounter - right posterior frontal lobe, wild cortical contusion - Chronic kidney disease, unspecified wild Forms: - Medication Reconciliation Form wild - SBAR form wild Signatures: Dispatcher [employer] EDBerhane Brooks MD MD cha Attema, Lee, FNP-C PRIMARY THERAPIST-Cla1 Augusto Echols RN RN as6 Diya clarke RN RN pf1 Corrections: (The following items were deleted from the chart) 10/17 22:41 22:[address] [facility] 23: 22:41 to [facility] wild 23:22 23:[address] [facility] 10/18 04:27 10/17 23:22 to [facility] pf1 10/18 06:37 04:00 Home Meds: Plavix 75 mg Oral tab 1 tab once daily; pf1 pf1
[2022-10-17 22:08] LABS: Albumin 1.9 g/dL (3.4-5.0); Bilirubin Direct 0.2 mg/dL (0-0.2); Bilirubin Total 0.3 mg/dL (0.2-1.0); Magnesium 2.1 mg/dL (1.6-2.4); Potassium 4.6 mmol/L (3.5-5.1); Protein, Total 6.3 g/dL (6.4-8.2); Troponin High Sensitivity 44.6 pg/mL (<58.9)
[2022-10-17] MEDS ORDERED: NA CHLORIDE 0.9% 2,000 ML ONE (22:17)
[2022-10-17] MEDS ORDERED: ACETAMINOPHEN 500 MG TAB ONE (22:17)
[2022-10-17] MEDS ORDERED: CEFTRIAXONE 1000 MG/VIAL ONE (22:17)
--- NOTE | 2022-10-17 22:32 | RAD REPORT ---
EXAM DESCRIPTION: CT - Head C Spine Cap Wo Con - 10/17/2022 10:18 pm CLINICAL HISTORY: Trauma, head and neck injury. Chest, abdomen and pelvis pain. fall COMPARISON: No comparisons TECHNIQUE: CT head without contrast. CT cervical spine without contrast with coronal and sagittal reformatted images. CT chest, abdomen and pelvis without contrast with coronal and sagittal reformatted images of the [facility] ne. All CT scans are performed using dose optimization technique as appropriate and may include automated exposure control or mA/KV adjustment according to patient size. FINDINGS: CT HEAD WITHOUT CONTRAST: There is a small subtle area of increased serpiginous densities seen posterior right frontal lobe (im age 28/37). No areas of brain edema or midline shift. The paranasal sinuses and mastoids are clear. The calvarium is intact. CT CERVICAL SPINE WITHOUT CONTRAST: No fracture or subluxation. Moderate lower cervical degenerative spondylosis. The prevertebral soft t issues are normal in thickness. CT CHEST, ABDOMEN, PELVIS WITHOUT CONTRAST: NOTE: Lack of contrast is a significant limitation in the assessment of trauma related findings. Spec ifically, solid organ, vascular and bowel evaluation is significantly limited. Moderate bilateral interstitial and alveolar lung opacities are present.Trace bilateral pleural effus ion. No evidence of intra-abdominal visceral injury, free fluid or free air is seen within the above detai led limitations. Small calculi are present in both kidneys without hydronephrosis. No pelvic mass or hematoma. Postsurgical lumbar spine. IMPRESSION: Small area of increased serpiginous density posterior right frontal lobe could be a smal l area of cortical contusion. No midline shift or other worrisome finding. If clinically indicated, f ollow-up MRI brain may be helpful. Moderate bilateral interstitial and alveolar lung opacities may indicate underlying infection or inte rstitial lung disease. Small stones are present in both kidneys without hydronephrosis.
--- NOTE | 2022-10-17 22:34 | RAD REPORT ---
EXAM DESCRIPTION: RAD - Chest Single View - 10/17/2022 10:26 pm CLINICAL HISTORY: COUGH Chest pain. COMPARISON: Chest Single View dated 10/01/2022; Chest Single View dated 09/14/2022; Chest Single View d ated 09/12/2022; Chest Single View dated 09/10/2022 FINDINGS: Portable technique limits examination quality. There is extensive bilateral pulmonary opacities seen, progressive since 10/01/2022 prior study. The findings may be related to infection or underlying interstitial lung disease. The heart is upper limi t of normal in size.
[2022-10-17] MEDS ORDERED: AZITHROMYCIN 500 MG INJ IVPB ONE (23:30)
[2022-10-17] MEDS ORDERED: IPRATROPIUM BROM 0.5MG/2.5ML ONE (23:30)
[2022-10-17] MEDS ORDERED: NA CHLORIDE 0.9% 250 ML ONE (23:30)
[2022-10-17] MEDS ORDERED: LEVALBUTEROL 1.25 MG/3 ML NEB ONE (23:31)
[2022-10-17 23:34] LABS: Blood Morphology Comment NOT SEEN (NOT SEEN); Platelet Estimate ADEQ
[2022-10-17 23:40] LABS: SARS-COV-2 RT PCR NEGATIVE (NEGATIVE)
[2022-10-18] MEDS ORDERED: VANCOMYCIN 1 GM/VIAL ONE (01:55)
[2022-10-18] MEDS ORDERED: HYDROCORTISONE SUC 100 MG INJ ONE (01:55)
[2022-10-18] MEDS ORDERED: NA CHLORIDE 0.9% 250 ML ONE (01:56)
[2022-10-18 05:04] VITALS: TEMP 98.7
[2022-10-18 05:06] VITALS: BP 88/56; O2SAT 97
== END 2022-10-18 04:27 ==
LOC: ER 21:05
DX: J15.8 Pneumonia due to other specified bacteria (principal); J91.8 Pleural effusion in other conditions classified elsewhere; S00.83XA Contusion of other part of head, initial encounter; W18.30XA Fall on same level, unspecified, initial encounter; I13.0 Hypertensive heart and chronic kidney disease with heart failure and stage 1 through stage 4 chronic kidney disease, or unspecified chronic kidney disease; N18.9 Chronic kidney disease, unspecified; I50.9 Heart failure, unspecified; D63.8 Anemia in other chronic diseases classified elsewhere; R53.1 Weakness; R41.82 Altered mental status, unspecified; G20 Parkinson's disease; Z20.822 Contact with and (suspected) exposure to COVID-19; Z95.818 Presence of other cardiac implants and grafts; Z88.5 Allergy status to narcotic agent; Z88.6 Allergy status to analgesic agent; Z88.8 Allergy status to other drugs, medicaments and biological substances; Z91.048 Other nonmedicinal substance allergy status
CPT/HCPCS: 93005; 87040 ×2; 85025; 80048; 36415; 83735; 85610; 80076; 83605; 84484; 83690; 83880; 0240U; 70450; 71250; 72125; 71045; J7614; J7644; J0456; J3370; J7050 ×2; J7030; J1720; 96361; 96365; 96366; 96367; 96375; 99285

== ENCOUNTER 2023-02-10 06:28 | Emergency (ER) | payer OTHER ==
--- OUTSIDE RECORDS SUMMARY | 2023-02-10 06:31 | XMS REPORT | Continuity of Care Document ---
:1950 Author Organization [facility] t Address [address] [place] [address] Care Team Providers Name Role Phone MARY KAY BRUNER Attending Clinician Unavailable MITZI SÁNCHEZ Attending Clinician Unavailable JACKIE VERNON Attending Clinician Unavailable ELLIOTT WANG Attending Clinician Unavailable Harriet-Mbayo_A_AH Attending Clinician Unavailable MARY KAY BRUNER Admitting Clinician Unavailable Harriet-Mbayo_A_AH Admitting Clinician Unavailable Payers Payer Name Policy Type Policy Number Effective Date Expiration Date S ource [employer] MEDICARE PPO [id number] 2020 00:00:00 [employer] MEDICARE ADV [id number] 2020 00:00:00 MEDICARE PART A [id number] 2020 \T\ B 00:00:00 [employer] [place] - [id number] 2019 [place] 00:00:00 (MEDICARE REPLACEMENT/ADVANT AGE - HMO) Problems This patient has no known problems. Allergies, Adverse Reactions, Alerts Allergy Allergy Status Severity Reaction(s) Onset Inactive Treating Comm ents Source Name Type Date Date Clinician GABAPENT DRUG Active Unknown-Cmnt Un davina IN [facility] 04-20 ity of 00:00: [place] [id number] [address] IBUPROFE DRUG Active Unknown-Cmnt Un davina N [facility] 04-20 ity of 00:00: [place] [address] [address] RISPERID DRUG Active EP Effects Univ ers ONE [facility] 04-20 ity of 00:00: [place] [address] [place] [address] Medications This patient has no known medications. Procedures This patient has no known procedures. Encounters Start End Encounter Admission Attending Care Care Encounter Source Date/Time Date/Time Type Type Clinicians Facility Department ID 2023-01-31 Outpatient [facility] [id number] [place] 15:12:02 [id number] [facility] 2022-12-31 Outpatient [facility] [id number] [place] 11:35:58 [id number] [facility] 2023-02-17 2023-02-17 Outpatient [facility] [id number] [place] 10:45:00 10:45:00 [facility] 2023-02-03 2023-02-03 Outpatient ZOHREH, [facility] [id number] [place] 11:40:00 11:40:00 [facility] 2022-12-31 2023-01-03 Inpatient MITZI ANAND [facility] [id number] [facility] 06:05:00 10:58:00 2020-06-25 2020-06-25 [facility] [id number] [facility] 00:00:00 00:00:00 SAMREENMERCEDES [facility] 2020-06-20 2020-06-20 Outpatient [place] [facility] [id number] Univers 09:00:00 09:00:00 JACKIE [facility] 2020-05-02 2020-05-02 [facility] [id number] Univers 08:30:00 08:30:00 ELLIOTT [facility] 2019-11-22 2019-11-22 Outpatient Harriet-Mbayo VFP [facility] [id number] [facility] 10:39:00 10:39:00 _A_ [id number] Family Practic e 2019-11-22 2019-11-22 Outpatient Harriet-Mbayo [facility] [id number] [facility] 10:39:00 10:39:00 _A_ [id number] Family Practic e Results This patient has no known results.
--- NOTE | 2023-02-10 07:15 | ER ---
Nurse's Notes [facility] Name: Taj Perez Age: 72 yrs Sex: Male : 1950 Arrival Date: 02/10/2023 Time: 06:28 Bed 18 Private MD: Diagnosis: Cellulitis of left toe-2nd toe Presentation: 02/10 06:41 Chief complaint: Spouse and/or significant other states: "We think he has a spider bit as6 to his left index toe". Coronavirus screen: At this time, the client does not indicate any symptoms associated with coronavirus-19. Ebola Screen: No symptoms or risks identified at this time. Initial Sepsis Screen: Does the patient meet any 2 criteria? No. Patient's initial sepsis screen is negative. Does the patient have a suspected source of infection? No. Patient's initial sepsis screen is negative. Risk Assessment: Do you want to hurt yourself or someone else? Patient reports no desire to harm self or others. Onset of symptoms was February 09, 2023. 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 - Social history:: Smoking status: Patient/guardian denies using tobacco, the patient reports quitting approximately 20 years ago. - Family history:: not pertinent. - Hospitalizations: : No recent hospitalization is reported. Screenin:53 [facility] ED Fall Risk Assessment (Adult) History of falling in the last 3 months, kl including since admission No falls in past 3 months (0 pts) Confusion or Disorientation No (0 pts) Intoxicated or Sedated No (0 pts) Impaired Gait Yes (1 pt) Mobility Assist Device Used Yes (1 pt) Altered Elimination No (0 pt) Score/Fall Risk Level 0 - 2 = Low Risk Oriented to surroundings, Maintained a safe environment. Abuse screen: Denies threats or abuse. Nutritional screening: No deficits noted. Tuberculosis screening: No symptoms or risk factors identified. Assessment: 06:51 General: Appears uncomfortable, Behavior is calm, cooperative. Pain: Complains of pain kl in left second toe Pain currently is 10 out of 10 on a pain scale. Aggravated by weight bearing. Neuro: No deficits noted. Cardiovascular: No deficits noted. Respiratory: No deficits noted. GI: No deficits noted. No signs and/or symptoms were reported involving the gastrointestinal system. : No deficits noted. No signs and/or symptoms were reported regarding the genitourinary system. : No deficits noted. No signs and/or symptoms were reported regarding the genitourinary system. EENT: No deficits noted. No signs and/or symptoms were reported regarding the EENT system. Derm: Skin is intact, Skin is red, to left 2nd toe pt reports started out as pimple last pm and" I popped it with my knife". Musculoskeletal: Swelling present in left second toe. 07:20 Reassessment: Patient appears in no apparent distress at this time. Patient is alert, nj1 oriented x 3, equal unlabored respirations, skin warm/dry/pink. Vital Signs: 06:41 BP 131 / 66; Pulse 71; Resp 20 S; Temp 98.2(TE); Pulse Ox 90% on 4 lpm NC; Weight as6 109.32 kg (R); Height 5 ft. 9 in. (R); Pain 10/10; 06:53 BP 128 / 64; kl 07:20 Pulse 66; Resp 18; Pulse Ox 94% on 4 lpm NC; nj1 06:41 Body Mass Index 35.59 (109.32 kg, 175.26 cm) as6 06:41 Pain Scale: Adult as6 ED Course: 06:32 Patient arrived in ED. ja2 06:43 Triage completed. as6 06:44 Arm band placed on. as6 06:59 Max Quezada MD is Attending Physician. rn 07:07 Charisma Haq, ELBERT is Primary Nurse. nj1 07:20 Patient has correct armband on for positive identification. Bed in low position. Call nj1 light in reach. Adult w/ patient. 07:20 No provider procedures requiring assistance completed. nj1 07:20 Patient did not have IV access during this emergency room visit. nj1 Administered Medications: 07:20 Drug: Trimethoprim-Sulfamethoxazole PO (160 mg-800 mg (DS) 1 tablet Route: PO; nj1 Medication: 07:20 VIS not applicable for this client. nj1 Outcome: 07:15 Discharge ordered by . rn 07:20 Discharged to home ambulatory, with family. nj1 07:20 Condition: stable 07:20 Discharge instructions given to patient, family, Instructed on discharge instructions, follow up and referral plans. medication usage, Demonstrated understanding of instructions, follow-up care, medications, Prescriptions given X 1. 07:27 Patient left the ED. nj1 Signatures: Joceline Zimmerman RN Max Pagan MD MD rn Alexander, Jessica ja2 Slawson, Ashby, RN RN as6 Charisma Haq RN RN nj1
--- NOTE | 2023-02-10 07:15 | EDPHYS ---
Physician Documentation [facility] Name: Taj Perez Age: 72 yrs Sex: Male : 1950 Arrival Date: 02/10/2023 Time: 06:28 Bed 18 Private MD: ED Physician Max Quezada HPI: 02/10 07:08 This 72 yrs old Male presents to ER via Ambulatory with complaints of Insect Bite. rn 07:08 The patient was bitten on the left foot, by insect, at home. Onset: The rn symptoms/episode began/occurred last night. Severity of symptoms: At their worst the symptoms were mild, in the emergency department the symptoms are unchanged. The patient has not experienced similar symptoms in the past. The patient has not recently seen a physician. Pt reports possible spider bite or insect bite to left 2nd toe, put on his house slippers and felt slight pain, did not see insect or spider. Reports toe was entirely normal yesterday during day, no injury, reports noticed "pimple" to top of left 2nd toe after inspection, and cut it with a knife, no purulence obtained. No fever/chills. . 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 - Social history:: Smoking status: Patient/guardian denies using tobacco, the patient reports quitting approximately 20 years ago. - Family history:: not pertinent. - Hospitalizations: : No recent hospitalization is reported. ROS: 07:10 Constitutional: Negative for fever, chills, and weight loss, Respiratory: Negative for rn shortness of breath, and pleuritic chest pain, MS/Extremity: Negative for injury and deformity, Skin: + redness and swelling to top of left 2nd toe Exam: 07:10 Constitutional: This is a well developed, well nourished patient who is awake, alert, rn and in no acute distress. Skin: Warm, dry, left 2nd toe with erythema to top half, not circumferential, no fluctuance, no drainage. Redness does not extend proximal to toe, no erythema or tenderness of foot or plantar surface, no open wounds. Vital Signs: 06:41 BP 131 / 66; Pulse 71; Resp 20 S; Temp 98.2(TE); Pulse Ox 90% on 4 lpm NC; Weight as6 109.32 kg (R); Height 5 ft. 9 in. (R); Pain 10/10; 06:53 BP 128 / 64; kl 07:20 Pulse 66; Resp 18; Pulse Ox 94% on 4 lpm NC; nj1 06:41 Body Mass Index 35.59 (109.32 kg, 175.26 cm) as6 06:41 Pain Scale: Adult as6 MDM: 06:59 Patient medically screened. rn 07:10 Differential diagnosis: cellulitis, insect bite. Data reviewed: vital signs, nurses rn notes, and as a result, I will discharge patient. Care significantly affected by the following chronic conditions: Congestive Heart Failure, Chronic Obstructive Pulmonary Disease, Obesity. Counseling: I had a detailed discussion with the patient and/or guardian regarding: the historical points, exam findings, and any diagnostic results supporting the discharge/admit diagnosis, the need for outpatient follow up, to return to the emergency department if symptoms worsen or persist or if there are any questions or concerns that arise at home. Special discussion: I discussed with the patient/guardian in detail that at this point there is no indication for admission to the hospital. It is understood, however, that if the symptoms persist or worsen the patient needs to return immediately for re-evaluation. Administered Medications: 07:20 Drug: Trimethoprim-Sulfamethoxazole PO (160 mg-800 mg (DS) 1 tablet Route: PO; nj1 Disposition Summary: 02/10/23 07:15 Discharge Ordered Location: Home rn Problem: new rn Symptoms: are unchanged rn Condition: Stable rn Diagnosis - Cellulitis of left toe - 2nd toe rn Followup: rn - With: Private Physician - When: 2 - 3 days - Reason: Recheck today's complaints, Re-evaluation by your physician Discharge Instructions: - Discharge Summary Sheet rn - Cellulitis, Adult rn Forms: - Medication Reconciliation Form rn - Thank You Letter rn - Antibiotic patent attorney - Prescription Opioid Use rn Prescriptions: - Bactrim DS 800-160 mg Oral Tablet - take 1 tablet by ORAL route every 12 hours for 10 days; 20 tablet; Refills: 0, rn Product Selection Permitted Signatures: Max Quezada MD MD rn Slawson, Ashby, RN RN as6 Charisma Haq RN RN nj1 Corrections: (The following items were deleted from the chart) 07:12 07:08 Pt reports possible spider bite or insect bite to left 2nd toe, . rn rn
[2023-02-10] MEDS ORDERED: SMZ./TMP. 800/160 MG TABLET ONE (07:22)
== END 2023-02-10 07:27 | disposition home or self-care (01) ==
LOC: ER 06:28
DX: L03.032 Cellulitis of left toe (principal); Z88.5 Allergy status to narcotic agent; Z88.6 Allergy status to analgesic agent; Z88.8 Allergy status to other drugs, medicaments and biological substances
CPT/HCPCS: 99283